=== PATIENT | female | born 1930 | race Caucasian/White ===

== ENCOUNTER 2017-03-08 20:33 | Inpatient (IN) | payer MEDICARE, BC ==
[~2017-03-08] VITALS: Ht 160 cm; Wt 62.3 kg
[~2017-03-08 20:33] MED LIST: AZIT250T74 PO; CALTTAB5 PO; CART300C2 PO; CIPR500T2 PO; COUM3TAB PO; LISI20 PO
[2017-03-08 20:43] VITALS: BP 174/89; PULSE 98; RESP 16; TEMP 99.4; O2SAT 96
[2017-03-08] MEDS ORDERED: PANT40TA3 PO (20:43)
[2017-03-08] MEDS ORDERED: CALC1TAB87 PO (20:43)
[2017-03-08] MEDS ORDERED: DILT300C3 PO (20:43)
[2017-03-08] MEDS ORDERED: WARF-18 PO (20:43)
[2017-03-08] MEDS ORDERED: VANCOMYCIN INJ 1,000 MG in SODIUM CHLOR 0.9% 250 ML INJ 250 ML IV STA (21:25)
[2017-03-08] MEDS ORDERED: PIPERACIL-TAZO 4.5 GM PREMIX 100 ML IV STA (21:25)
--- NOTE | 2017-03-08 21:45 | PD ---
HPI Chief Complaint: General Weakness Time Seen by Provider: 21:25 Travel History International Travel<30 days: No Contact w/Intl Traveler<30days: No Traveled to known affect area: No History of Present Illness HPI 86-year-old female presents to the emergency department by EMS transport from assisted living facility due to evaluation of generalized weakness fatigue and fever today. Daughter reports that patient is typically active and today the nursing facility/assisted living facility noted the patient is complaining of chills and appeared to have shaking chill episodes. The daughter reports she requested a temperature to be taken and patient was noted to be febrile. Patient's transport to the emergency room for evaluation. Patient's had no area of focality no headache no sore throat no sinus pressure drainage no earache no neck pain no cough no congestion no shortness breath or chest pain no nausea no vomiting no abdominal pain no dysuria frequency urgency flank pain hematuria and no areas of skin inflammation erythema tenderness joint pain or swelling. Patient has had some falls this past week and these episodes have been witnessed and no head injury noted. Patient's sustained a few bruises. Daughter states mother falls frequently. Patient does take warfarin for history of atrial fibrillation. Patient has not recently been on antibiotic therapy. FORMERLY [facility], [facility]–1983 Past Medical History Narrative Medical Svfonro-Fttdb-Miegg, arthritis, atrial fibrillation, Coumadin therapy, GERD, hypertension, pneumonia, dyslipidemia, bladder stimulator, ankle and knee surgery; occasional alcohol use; nursing notes reviewed Arthritis: Yes Atrial Fibrillation: Yes Autoimmune Disease: No Blood Disorders: No Anxiety: No Depression: No Cancer: No Chemotherapy: No Cerebrovascular Accident: No Endocrine: No Gastrointestinal Disorders: Yes GERD: Yes Genitourinary: No Hypertension: Yes Immune Disorder: No Neurologic: No Psychiatric: No Reproductive: No Respiratory: No Pneumonia: Yes Radiation Therapy: No Seizures: No Thyroid Disease: No Triglycerides - High: Yes ?: Not Past Surgical History AICD: No Body Medical Devices: BLADDER STIM Genitourinary Surgery: No Pacemaker: No Other Surgery: Yes Social History Alcohol Use: Yes (WHISKEY, 3 DRINKS DAILY) Tobacco Use: No Substance Use: No Allergies-Medications (Allergen,Severity, Reaction): Coded Allergies: Codeine (Verified Allergy, Severe, Rash, 01/04/05) Nifedipine (Verified Allergy, Severe, 01/03/05: PT TAKES CARDIZEM CD AT HOME W/O ADVERSE EFFECT, 01/03/05) REACTION TO ADALAT 01/03/05: PT TAKES CARIDZEM CD AT HOME WITHOUT ADVERSE EFFECT Actonel (Verified Allergy, Intermediate, 03/08/17) Fosamax (Verified Allergy, Intermediate, 03/08/17) Oxybutynin (Verified Allergy, Intermediate, 03/08/17) Procardia (Verified Allergy, Intermediate, 03/08/17) Reported Meds & Prescriptions Reported Meds & Active Scripts Active Reported Calcium 600 with Vitamin D (Calcium Carbonate-Cholecalciferol) 600-400 mg-Unit Tab 1 Tab PO DAILY Diltiazem CD 24 HR 300 Mg Caper 300 Mg PO DAILY Pantoprazole (Pantoprazole Sodium) 40 Mg Tab 40 Mg PO DAILY Warfarin 2.5 Mg Tab 2.5 Mg PO DAILY Review of Systems Except as stated in HPI: all other systems reviewed are Neg General / Constitutional: Positive: Fever, Chills HENT: No: Headaches, Sore Throat, Congestion, Neck Pain Cardiovascular: No: Chest Pain or Discomfort, Palpitations, Diaphoresis, Dyspnea on exertion Respiratory: No: Cough, Shortness of Breath, Pleuritic Pain Gastrointestinal: No: Nausea, Vomiting, Diarrhea, Abdominal Pain Genitourinary: No: Frequency, Dysuria, Flank Pain Musculoskeletal: No: Myalgias, Arthralgias Skin: No Rash Neurologic: Positive: Weakness, No: Dizziness, Syncope, Focal Abnormalities, Coordination Problem Psychiatric: No: Anxiety Endocrine: No: Heat Intolerance Hematologic/Lymphatic: No: Easy Bruising Physical Exam Narrative GENERAL: Well-developed well-nourished female in acute distress no respiratory distress SKIN: Warm and dry. HEAD: Normocephalic. EYES: No scleral icterus. No injection or drainage. NECK: Supple, trachea midline. No JVD or lymphadenopathy. CARDIOVASCULAR: Regular rate and rhythm without murmurs, gallops, or rubs. RESPIRATORY: Breath sounds equal bilaterally. No accessory muscle use. GASTROINTESTINAL: Abdomen soft, non-tender, nondistended. MUSCULOSKELETAL: No cyanosis, or edema. BACK: Nontender without obvious deformity. No CVA tenderness. Data Data Last Documented VS Vital Signs Date Time Temp Pulse Resp B/P Pulse Ox O2 Delivery O2 Flow Rate FiO2 03/09/17 00:04 74 16 172/74 98 Room Air 03/08/17 23:09 98.6 Orders Electrocardiogram (03/08/17:25) Complete Blood Count With Diff (03/08/17:25) Comprehensive Metabolic Panel (03/08/17:) Prothrombin Time / Inr (Pt) (03/08/17:25) Lactic Acid Sepsis Protocol (03/08/17:25) Magnesium (Mg) (03/08/17:25) Lipase (03/08/17:) Troponin I (03/08/17:) Urinalysis - C+S If Indicated (03/08/17:) Blood Culture (03/08/17:) Chest, Single Ap (03/08/17:) Blood Glucose (03/08/17:) Ecg Monitoring (03/08/17:) Iv Access Insert/Monitor (03/08/17:) Oximetry (03/08/17:) Oxygen Administration (03/08/17:) Vancomycin Inj (Vancomycin Inj) (03/08/17:) Piperacil-Tazo 4.5 Gm Premix (Zosyn 4.5 (03/08/17 21:25) Cath For Specimen (03/08/17 22:05) Urine Culture (03/08/17 22:45) Potassium Chloride (Kcl) (03/08/17 23:45) Ceftriaxone Inj (Rocephin Inj) (03/09/17 09:00) Admit To Inpatient (03/09/17 ) Vital Signs (Adult) Q4H (03/09/17 00:05) Activity Oob With Assistance (03/09/17 00:05) Corn Sheller Operator / Telemetry .CONTINUOUS (03/09/17 00:05) Intake + Output MARE.QSHIFT (03/09/17 00:05) Diet Regular Basic (03/09/17 Breakfast) Sodium Chlor 0.9% 1000 Ml Inj (Ns 1000 M (03/09/17 00:05) Sodium Chloride 0.9% Flush (Ns Flush) (03/09/17 00:15) Sodium Chloride 0.9% Flush (Ns Flush) (03/09/17 09:00) Ondansetron Inj (Zofran Inj) (03/09/17 00:15) Bisacodyl Supp (Dulcolax Supp) (03/09/17 00:15) Scd Bilateral/Knee High MARE.BID (03/09/17 00:05) Skip Bilateral/Knee High MARE.QSHIFT (03/09/17 00:05) Acetaminophen (Tylenol) (03/09/17 00:15) Morphine Inj (Morphine Inj) (03/09/17 00:15) Inpatient Certification (03/09/17 ) Diltiazem Cd (Cardizem Cd) (03/09/17 09:00) Pantoprazole (Protonix) (03/09/17 09:00) Warfarin (Coumadin) (03/09/17 09:00) Admit Order (Ed Use Only) (03/09/17 ) ^ Saline Lock (03/09/17 00:07) Resp Oxygen Singh C Titrat 1-4 L (03/09/17 ) Notify Dr: Other (03/09/17 00:07) Sodium Chloride 0.9% Flush (Ns Flush) (03/09/17 09:00) Sodium Chloride 0.9% Flush (Ns Flush) (03/09/17 00:15) Complete Blood Count With Diff (03/09/17 06:00) Comprehensive Metabolic Panel (03/09/17 06:00) Labs Laboratory Tests Test 03/08/17 03/08/17 03/08/17 21:10 21:20 22:45 White Blood Count 13.8 TH/MM3 Red Blood Count 5.16 MIL/MM3 Hemoglobin 13.9 GM/DL Hematocrit 42.1 % Mean Corpuscular Volume 81.5 FL Mean Corpuscular Hemoglobin 27.0 PG Mean Corpuscular Hemoglobin 33.1 % Concent Red Cell Distribution Width 14.8 % Platelet Count 488 TH/MM3 Mean Platelet Volume 8.0 FL Neutrophils (%) (Auto) 82.1 % Lymphocytes (%) (Auto) 8.4 % Monocytes (%) (Auto) 8.2 % Eosinophils (%) (Auto) 0.3 % Basophils (%) (Auto) 1.0 % Neutrophils # (Auto) 11.4 TH/MM3 Lymphocytes # (Auto) 1.2 TH/MM3 Monocytes # (Auto) 1.1 TH/MM3 Eosinophils # (Auto) 0.0 TH/MM3 Basophils # (Auto) 0.1 TH/MM3 CBC Comment DIFF FINAL Differential Comment Prothrombin Time 24.0 SEC Prothromb Time International 2.1 RATIO Ratio Sodium Level 136 MEQ/L Potassium Level 3.3 MEQ/L Chloride Level 98 MEQ/L Carbon Dioxide Level 26.4 MEQ/L Anion Gap 12 MEQ/L Blood Urea Nitrogen 9 MG/DL Creatinine 0.59 MG/DL Estimat Glomerular Filtration 97 ML/MIN Rate Random Glucose 108 MG/DL Calcium Level 9.7 MG/DL Magnesium Level 2.3 MG/DL Total Bilirubin 0.7 MG/DL Aspartate Amino Transf 152 U/L (AST/SGOT) Alanine Aminotransferase 97 U/L (ALT/SGPT) Alkaline Phosphatase 365 U/L Troponin I LESS THAN 0.02 NG/ML Total Protein 7.0 GM/DL Albumin 2.9 GM/DL Lipase 129 U/L Lactic Acid Level 1.2 mmol/L Urine Collection Type CATH Urine Color YELLOW Urine Turbidity CLEAR Urine pH 6.5 Urine Specific [place] 1.018 Urine Protein TRACE mg/dL Urine Glucose (UA) NEG mg/dL Urine Ketones TRACE mg/dL Urine Occult Blood SMALL Urine Nitrite NEG Urine Bilirubin NEG Urine Leukocyte Esterase SMALL Urine WBC 6-8 /hpf Urine WBC Clumps RARE Urine Squamous Epithelial 3-5 /hpf Cells Urine Transitional Epithelial 0-2 /hpf Cells Urine Bacteria RARE /hpf Microscopic Urinalysis Comment CULTURE INDICATED MDM Medical Decision Making Medical Screen Exam Complete: Yes Emergency Medical Condition: Yes Medical Record Reviewed: Yes Interpretation(s) EKG: Atrial fibrillation rate [address] elevation or injury pattern change noted; unchanged from 11/2016 Urinalysis: positive white blood cells clumped white blood cells and bacteria by catheter specimen culture indicated Last Impressions Chest X-Ray 03/08/172124 Signed Impressions: Service Date/Time: Wednesday, March 08, 2017 22:02 - CONCLUSION: 1. Mild cardiomegaly. No significant consolidation or effusion. Matti Fenton MD CBC & BMP Diagram 03/08/17 21:10 Vital Signs Date Time Temp Pulse Resp B/P Pulse Ox O2 Delivery O2 Flow Rate FiO2 03/08/17 23:09 98.6 69 16 176/76 98 Room Air 03/08/17 22:15 74 16 172/76 97 Room Air 03/08/17 20:49 96 Room Air 03/08/17 20:43 99.4 98 16 174/89 96 Differential Diagnosis Febrile illness, sepsis, pneumonia, UTI Narrative Course Patient placed on supervisor diagnostic IV access obtained blood cultures obtained lactic acid sepsis protocol obtained symptoms and IV antibiotic administered process and and vancomycin EKG performed atrial fibrillation with slow ventricular rate of [address] elevation or injury pattern change or ectopy noted; Critical Care Narrative Aggregate critical care time was 35 minutes. Time to perform other separately billable procedures was not included in the critical care time. My time did not include minutes spent treating any other patients simultaneously or on activities that did not directly contribute to the patient's treatment. The services I provided to this patient were to treat and/or prevent clinically significant deterioration that could result in: Septic shock arrhythmia I provided critical care services requiring my management, as noted below: Chart data review, documentation time, medication orders and management, vital sign assessments/reviewing monitor data, ordering and reviewing lab tests, ordering and interpreting/reviewing x-rays and diagnostic studies, care of the patient and discussion of the patient with the admitting physicians. Sepsis Criteria SIRS Criteria (2 or more): Heart rate over 90, WBC > 73642, < 4000 or > 10% bands Sepsis Criteria (SIRS+source): Infect source susp/known (uti) Criteria Outcome: Meets sepsis criteria Physician Communication Physician Communication discussed with Dr Clayton for admission Diagnosis Primary Impression: Febrile illness Additional Impressions: Sepsis Qualified Code: A41.9 - Sepsis, due to unspecified organism UTI (urinary tract infection) Qualified Code: N39.0 - Urinary tract infection without hematuria, site unspecified Admitting Information Admitting Physician Requests: Admit Kenia Flores MD Mar 08, 2017 21:45
[2017-03-08 21:51] LABS: AUTOMATED NEUTROPHIL # 11.4 TH/MM3 (1.8-7.7); BASOPHIL # 0.1 TH/MM3 (0-0.2); EOSINOPHIL % 0.3 % (0.0-4.0); HEMATOCRIT 42.1 % (35.0-46.0); HEMO FLAGS DIFF FINAL; LYMPH % 8.4 % (9.0-44.0); LYMPHOCYTE # 1.2 TH/MM3 (1.0-4.8); MEAN CELL VOLUME 81.5 FL (80.0-100.0); MEAN CORPUSCULAR HGB CONC 33.1 % (32.0-36.0); MONO % 8.2 % (0.0-8.0); NEUT % 82.1 % (16.0-70.0); PLATELET COUNT 488 TH/MM3 (150-450); RED BLOOD COUNT 5.16 MIL/MM3 (4.00-5.30); RED CELL DISTRIBUTION WIDTH 14.8 % (11.6-17.2); WHITE BLOOD COUNT 13.8 TH/MM3 (4.0-11.0)
[2017-03-08 21:58] LABS: CHLORIDE 98 MEQ/L (98-107); POTASSIUM 3.3 MEQ/L (3.5-5.1); SODIUM (NA) 136 MEQ/L (136-145)
[2017-03-08 22:02] LABS: ANION GAP 12 MEQ/L (5-15); BICARBONATE 26.4 MEQ/L (21.0-32.0); BLOOD UREA NITROGEN 9 MG/DL (7-18); MAGNESIUM 2.3 MG/DL (1.5-2.5)
[2017-03-08 22:05] LABS: ALT (GPT) 97 U/L (10-53); GLOMERULAR FILTRATION RATE 97 ML/MIN (>89); INTERNATIONAL NORMALIZED RATIO 2.1 RATIO
[2017-03-08 22:06] LABS: TOTAL BILIRUBIN ADULT 0.7 MG/DL (0.2-1.0)
[2017-03-08 22:07] LABS: AST (GOT) 152 U/L (15-37)
[2017-03-08 22:10] LABS: ALKALINE PHOSPHATASE 365 U/L (45-117)
[2017-03-08 22:15] VITALS: BP 172/76; PULSE 74; RESP 16; O2SAT 97
--- NOTE | 2017-03-08 22:54 | RADHPO ---
EXAM DATE/TIME: 03/08/2017 22:02 [facility] COMPARISON: CHEST SINGLE AP, November 26, 2015, 16:12. INDICATIONS : Weakness and fever. MEDICAL HISTORY : Hypertension. A-fib. SURGICAL HISTORY : None. ENCOUNTER: Initial ACUITY: 1 day PAIN SCORE: 0/10 LOCATION: Bilateral chest FINDINGS: Heart size mildly enlarged. Atherosclerotic and tortuous aorta. Minimal basal atelectasis. No consoli dation or effusion. No pneumothorax. CONCLUSION: 1. Mild cardiomegaly. No significant consolidation or effusion. Matti Fenton MD on March 08, 2017 at 22:52 Board Certified Radiologist. This report was verified electronically.
[2017-03-08 23:09] VITALS: BP 176/76; PULSE 69; RESP 16; TEMP 98.6; O2SAT 98
[2017-03-08 23:23] LABS: BLOOD, URINE SMALL (NEG); GLUCOSE,URINE NEG (NEG); KETONE, URINE TRACE mg/dL (NEG); NITRITE,URINE NEG (NEG); PH, URINE 6.5 (5.0-8.5)
[2017-03-08 23:32] LABS: METHOD OF COLLECTION CATH; URINE COLOR YELLOW (YELLW/STRAW)
[2017-03-08 23:34] LABS: BACTERIA, URINE RARE /hpf; COMMENT (UR) CULTURE INDICATED; CULTURE IF INDICATED CULTURE INDICATED; TRANSITIONAL EPI CELLS, URINE 0-2 /hpf
[2017-03-08] MEDS ORDERED: POTASSIUM CHLORIDE 20 MEQ CONTROLLED RELEASE TAB PO ONE (23:45)
[2017-03-09] VITALS (11 sets, daily range): BP systolic 145–175; BP diastolic 68–86; PULSE 57–75; RESP 16–20; TEMP 97.3–98.4; O2SAT 95–98
[2017-03-09] MEDS ORDERED: ONDANSETRON HCL 4 MG/2 ML VIAL IVP PRN (00:15)
[2017-03-09] MEDS ORDERED: MORPHINE SULFATE 4 MG/ML INJ IV PRN (00:15)
[2017-03-09] MEDS ORDERED: SODIUM CHLORIDE 0.9% FLUSH 10 ML FLUSH IV FLUSH PRN (00:15)
[2017-03-09] MEDS ORDERED: SODIUM CHLORIDE 0.9% FLUSH 10 ML FLUSH IVF PRN (00:15)
[2017-03-09] MEDS ORDERED: BISACODYL 10 MG SUPP RECTAL PRN (00:15)
[2017-03-09] MEDS: SODIUM CHLOR 0.9% 1000 ML INJ 1,000 ML IV SCH ×2 (00:51→09:09)
[2017-03-09 08:40] LABS: AUTOMATED NEUTROPHIL # 9.7 TH/MM3 (1.8-7.7); BASOPHIL # 0.1 TH/MM3 (0-0.2); BASOPHIL % 0.5 % (0.0-2.0); EOSINOPHIL # 0.1 TH/MM3 (0-0.4); EOSINOPHIL % 0.8 % (0.0-4.0); HEMATOCRIT 43.9 % (35.0-46.0); HEMO FLAGS DIFF FINAL; LYMPH % 11.6 % (9.0-44.0); LYMPHOCYTE # 1.4 TH/MM3 (1.0-4.8); MEAN CELL VOLUME 82.5 FL (80.0-100.0); MEAN CORPUSCULAR HEMOGLOBIN 26.4 PG (27.0-34.0); MONO % 8.7 % (0.0-8.0); NEUT % 78.4 % (16.0-70.0); PLATELET COUNT 463 TH/MM3 (150-450); RED BLOOD COUNT 5.32 MIL/MM3 (4.00-5.30); WHITE BLOOD COUNT 12.4 TH/MM3 (4.0-11.0)
[2017-03-09 08:41] LABS: CHLORIDE 103 MEQ/L (98-107); POTASSIUM 3.3 MEQ/L (3.5-5.1); SODIUM (NA) 140 MEQ/L (136-145)
[2017-03-09] MEDS: cefTRIAXone INJ 1,000 MG in SODIUM CHLORIDE 0.9% INJ 100 ML IV SCH (08:52)
[2017-03-09 08:53] LABS: INTERNATIONAL NORMALIZED RATIO 2.2 RATIO; PROTHROMBIN TIME - PATIENT 24.9 SEC (9.8-11.6)
[2017-03-09] MEDS: PANTOPRAZOLE SOD 40 MG DELAYED RELEASE TAB PO SCH (08:53)
[2017-03-09] MEDS: ACETAMINOPHEN 325 MG TAB PO PRN (08:53)
[2017-03-09] MEDS: SODIUM CHLORIDE 0.9% FLUSH 10 ML FLUSH IV FLUSH SCH ×2 (09:00→21:00)
[2017-03-09] MEDS ORDERED: ENALAPRILAT 1.25 MG/ML VIAL IV PRN (09:00)
[2017-03-09] MEDS ORDERED: POTASSIUM CHLORIDE 20 MEQ CONTROLLED RELEASE TAB PO ONE (09:00)
[2017-03-09] MEDS ORDERED: SODIUM CHLORIDE 0.9% FLUSH 10 ML FLUSH IV FLUSH SCH (09:00)
[2017-03-09] MEDS ORDERED: cloNIDine HCL 0.1 MG TAB PO PRN (09:00)
[2017-03-09] MEDS ORDERED: WARFARIN SOD 2.5 MG TAB PO SCH ×2 (09:00→16:00)
[2017-03-09 09:02] LABS: ALKALINE PHOSPHATASE 311 U/L (45-117); ALT (GPT) 74 U/L (10-53); ANION GAP 11 MEQ/L (5-15); AST (GOT) 84 U/L (15-37); BICARBONATE 25.8 MEQ/L (21.0-32.0); BLOOD UREA NITROGEN 7 MG/DL (7-18); GLOMERULAR FILTRATION RATE 112 ML/MIN (>89)
[2017-03-09] MEDS: DILTIAZEM-CD 300 MG CAP ER PO SCH (09:08)
--- NOTE | 2017-03-09 12:03 | HHI.HP ---
[facility] Unknown Admission Diagnosis febrile illness; uti; sepsis Diagnoses: Chief Complaint: Generalized weakness Travel History International Travel<30 Days: No Contact w/Intl Traveler <30 Da: No Traveled to Known Affected Are: No Sepsis Criteria SIRS Criteria (2 or more): Temp > 100.9 or < 96.8, WBC > 33207, < 4000 or > 10 % bands Sepsis Criteria (SIRS+source): Infect source susp/known Criteria Outcome: Meets sepsis criteria History of Present Illness This is a 86-year-old female brought in by EMS transport from assisted living [facility] for evaluation of generalized weakness, fatigue and fever today. Daughter reports that patient is typically active. Noted the patient is complaining of chills and appeared to have shaking chill episodes. The daughter reports she requested a temperature to be taken and patient was febrile. She was found to have abnormal urinalysis and given vancomycin and Zosyn in the emergency department. Denies headache no sore throat no sinus pressure drainage no earache, neck pain, cough, congestion, shortness breath, chest pain, nausea, vomiting, abdominal pain, dysuria, frequency , urgency, flank pain, hematuria and areas of skin inflammation, erythema, tenderness, joint pain or swelling. Patient has had some falls this past week and these episodes have been witnessed and no head injury noted. Patient's sustained a few bruises. Daughter states mother falls frequently. Today she still complains of being tired and uncomfortable she is unable to elaborate further. She is awake and oriented 3. Daughter is asking about rehabilitation Review of Systems Constitutional: COMPLAINS OF: Fatigue, Fever, Chills, DENIES: Diaphoretic episodes, Weight gain, Weight loss, Dizziness, Change in appetite, Night Sweats Endocrine: DENIES: Heat/cold intolerance, Polydipsia, Polyuria, Polyphagia Eyes: DENIES: Blurred vision, Diplopia, Vision loss, Photosensitivity Ears, nose, mouth, throat: DENIES: Tinnitus, Vertigo, Throat pain, Hoarseness, Epistaxis, Odynophagia Respiratory: DENIES: Cough, Wheezing, Hemoptysis, Sputum production, Shortness of breath Cardiovascular: DENIES: Chest pain, Palpitations, Syncope, Dyspnea on Exertion , PND, Lower Extremity Edema, Orthopnea, Claudication Gastrointestinal: DENIES: Abdominal pain, Black stools, Bloody stools, Constipation, Diarrhea, Nausea, Vomiting, Difficulty Swallowing, Anorexia Genitourinary: DENIES: Urinary frequency, Urinary incontinence, Urgency, Hematuria, Dysuria, Nocturia, Vaginal discharge Integumentary: DENIES: Rash Neurologic: DENIES: Headache, Localized weakness, Seizures, Tremor, Poor Balance Psychiatric: DENIES: Anxiety, Confusion, Depression, Hallucinations, Agitation , Suicidal Ideation, Homicidal Ideation, Delusions Past Family Social History Past Medical History Iadlppo-Rppyt-Qlmdx, arthritis, atrial fibrillation on Coumadin therapy, GERD, hypertension and dyslipidemia. History of MRSA cellulitis Past Surgical History bladder stimulator, ankle and knee surgery Reported Medications Calcium, diltiazem, Protonix and Coumadin Allergies: Coded Allergies: Codeine (Verified Allergy, Severe, Rash, 01/04/05) Nifedipine (Verified Allergy, Severe, 01/03/05: PT TAKES CARDIZEM CD AT HOME W/O ADVERSE EFFECT, 01/03/05) REACTION TO ADALAT 01/03/05: PT TAKES CARIDZEM CD AT HOME WITHOUT ADVERSE EFFECT Actonel (Verified Allergy, Intermediate, 03/08/17) Fosamax (Verified Allergy, Intermediate, 03/08/17) Oxybutynin (Verified Allergy, Intermediate, 03/08/17) Procardia (Verified Allergy, Intermediate, 03/08/17) Family History No CAD Social History Occasional alcohol use. Does not smoke Physical Exam Vital Signs Vital Signs Date Time Temp Pulse Resp B/P Pulse Ox O2 Delivery O2 Flow Rate FiO2 03/09/17 08:32 96 21 03/09/17 08:00 57 03/09/17 08:00 98.1 67 16 150/86 95 03/09/17 04:00 98.1 65 18 150/68 98 03/09/17 01:30 62 03/09/17 01:30 98.3 71 20 175/73 98 03/09/17 00:15 98 21 03/09/17 00:04 74 16 172/74 98 Room Air 03/08/17 23:09 98.6 69 16 176/76 98 Room Air 03/08/17 22:15 74 16 172/76 97 Room Air 03/08/17 20:49 96 Room Air 03/08/17 20:43 99.4 98 16 174/89 96 Physical Exam GENERAL: This is a well-nourished, well-developed patient, in no apparent distress. SKIN: No rashes, ecchymoses or lesions. Cool and dry. HEAD: Atraumatic. Normocephalic. No temporal or scalp tenderness. EYES: Pupils equal round and reactive. Extraocular motions intact. No scleral icterus. No injection or drainage. ENT: Nose without bleeding, purulent drainage or septal hematoma. Throat without erythema, tonsillar hypertrophy or exudate. Uvula midline. Airway patent. Tongue fasciculation NECK: Trachea midline. No JVD or lymphadenopathy. Supple, nontender, no meningeal signs. CARDIOVASCULAR: Irregularly irregular. Slight systolic murmur RESPIRATORY: Decreased Breath sounds equal bilaterally. No wheezes, rales, or rhonchi. GASTROINTESTINAL: Abdomen soft, non-tender, nondistended. No guarding. MUSCULOSKELETAL: Extremities without clubbing, cyanosis, or edema. No joint tenderness, effusion, or edema noted. No calf tenderness. Negative Homans sign bilaterally. NEUROLOGICAL: Awake and alert. Cranial nerves II through XII intact. Motor and sensory grossly within normal limits. Five out of 5 muscle strength in all muscle groups. Normal speech. Laboratory Laboratory Tests Test 03/08/17 03/08/17 03/08/17 03/09/17 21:10 21:20 22:45 07:50 White Blood Count 13.8 12.4 Red Blood Count 5.16 5.32 Hemoglobin 13.9 14.0 Hematocrit 42.1 43.9 Mean Corpuscular Volume 81.5 82.5 Mean Corpuscular Hemoglobin 27.0 26.4 Mean Corpuscular Hemoglobin 33.1 32.0 Concent Red Cell Distribution Width 14.8 15.0 Platelet Count 488 463 Mean Platelet Volume 8.0 7.7 Neutrophils (%) (Auto) 82.1 78.4 Lymphocytes (%) (Auto) 8.4 11.6 Monocytes (%) (Auto) 8.2 8.7 Eosinophils (%) (Auto) 0.3 0.8 Basophils (%) (Auto) 1.0 0.5 Neutrophils # (Auto) 11.4 9.7 Lymphocytes # (Auto) 1.2 1.4 Monocytes # (Auto) 1.1 1.1 Eosinophils # (Auto) 0.0 0.1 Basophils # (Auto) 0.1 0.1 CBC Comment DIFF FINAL DIFF FINAL Differential Comment Prothrombin Time 24.0 24.9 Prothromb Time International 2.1 2.2 Ratio Sodium Level 136 140 Potassium Level 3.3 3.3 Chloride Level 98 103 Carbon Dioxide Level 26.4 25.8 Anion Gap 12 11 Blood Urea Nitrogen 9 7 Creatinine 0.59 0.52 Estimat Glomerular Filtration 97 112 Rate Random Glucose 108 86 Calcium Level 9.7 8.7 Magnesium Level 2.3 2.2 Total Bilirubin 0.7 1.0 Aspartate Amino Transf 152 84 (AST/SGOT) Alanine Aminotransferase 97 74 (ALT/SGPT) Alkaline Phosphatase 365 311 Troponin I LESS THAN 0.02 Total Protein 7.0 6.7 Albumin 2.9 2.7 Lipase 129 Lactic Acid Level 1.2 Urine Collection Type CATH Urine Color YELLOW Urine Turbidity CLEAR Urine pH 6.5 Urine Specific [place] 1.018 Urine Protein TRACE Urine Glucose (UA) NEG Urine Ketones TRACE Urine Occult Blood SMALL Urine Nitrite NEG Urine Bilirubin NEG Urine Leukocyte Esterase SMALL Urine WBC 6-8 Urine WBC Clumps RARE Urine Squamous Epithelial 3-5 Cells Urine Transitional Epithelial 0-2 Cells Urine Bacteria RARE Microscopic Urinalysis Comment CULTURE INDICATED Date/Time Procedure Status Source Growth 03/08/17 22:45 Urine Culture Received Urine Catheterized Urine Pending 03/08/17 21:20 Aerobic Blood Culture - Preliminary Resulted Blood Peripheral NO GROWTH IN 1 DAY 03/08/17 21:20 Anaerobic Blood Culture - Preliminary Resulted Blood Peripheral NO GROWTH IN 1 DAY Result Diagram: 03/09/17 0750 03/09/17 0750 Imaging EKG interpreted by me with atrial fibrillation with slow ventricular response Chest x-ray image interpreted by me with mild cardiomegaly no effusion Last Impressions Chest X-Ray 03/08/172124 Signed Impressions: Service Date/Time: Wednesday, March 08, 2017 22:02 - CONCLUSION: 1. Mild cardiomegaly. No significant consolidation or effusion. Matti Fenton MD Assessment and Plan Problem List: (1) Sepsis ICD Code: A41.9 Status: Acute (2) UTI (urinary tract infection) ICD Code: N39.0 Status: Acute Assessment and Plan This is a 86-year-old female brought in by EMS transport from assisted living facility for evaluation of generalized weakness, fatigue and fever with abnormal urinalysis Sepsis secondary to UTI. Continue IV Rocephin and monitor urine and blood cultures. Recurrent falls. Fall precautions. Consult physical therapy Transaminitis. This is mild and likely related to sepsis. We'll monitor Hypokalemia. We'll replace and check magnesium and replace accordingly Chronic medical conditions of Spxdgkx-Yfdju-Muyvt, arthritis, atrial fibrillation on Coumadin therapy, GERD, hypertension and dyslipidemia. Stable continue outpatient medications as appropriate. Monitor INR to keep between 2 and 3 DVT prophylaxis patient on Coumadin Code Status DO NOT RESUSCITATE Discussed Condition With Patient, daughter and son-in-law Physician Certification 2 Midnight Certification Type: Admission for Inpatient Services Order for Inpatient Services The services are ordered in accordance with Medicare regulations or non- Medicare payer requirements, as applicable. In the case of services not specified as inpatient-only, they are appropriately provided as inpatient services in accordance with the 2-midnight benchmark. Estimated LOS (days): 2 days is the estimated time the patient will need to remain in the hospital, assuming treatment plan goals are met and no additional complications. Post-Hospital Plan: Not yet determined Problem Qualifiers (1) Sepsis: Qualified Code: A41.9 - Sepsis, due to unspecified organism (2) UTI (urinary tract infection): Qualified Code: N39.0 - Urinary tract infection without hematuria, site unspecified Jama Delong MD Mar 09, 2017 12:03
--- NOTE | 2017-03-09 14:14 | EKG ---
Date Performed: 03/08/2017 Time Performed: 21:31:04 PTAGE: 86 years EKG: Atrial fibrillation with slow ventricular response Inferior ST-T changes are nonspecific Co mpared to previous tracing, axis is no longer rightward. Abnormal ECG PREVIOUS TRACING : 11/26/2015 16.28 DOCTOR: Martir Reis Interpretating Date/Time 03/09/2017 14:13:39
[2017-03-10] VITALS (8 sets, daily range): BP systolic 148–166; BP diastolic 74–87; PULSE 68–84; RESP 18–20; TEMP 97.3–98.9; O2SAT 93–98
[2017-03-10] MEDS: SODIUM CHLOR 0.9% 1000 ML INJ 1,000 ML IV SCH (02:56)
[2017-03-10 06:26] LABS: INTERNATIONAL NORMALIZED RATIO 2.6 RATIO; PROTHROMBIN TIME - PATIENT 30.1 SEC (9.8-11.6)
[2017-03-10] MEDS: PANTOPRAZOLE SOD 40 MG DELAYED RELEASE TAB PO SCH (08:35)
[2017-03-10] MEDS: DILTIAZEM-CD 300 MG CAP ER PO SCH (08:35)
[2017-03-10] MEDS: cefTRIAXone INJ 1,000 MG in SODIUM CHLORIDE 0.9% INJ 100 ML IV SCH (08:35)
[2017-03-10] MEDS: SODIUM CHLORIDE 0.9% FLUSH 10 ML FLUSH IV FLUSH SCH ×2 (08:37→19:23)
--- NOTE | 2017-03-10 08:38 | HHI.DCPOC ---
Discharge Care Plan Diagnosis: (1) UTI (urinary tract infection) (2) Sepsis Your Health Problems Are: Difficulty with ADL Exercise Tolerance Goals to Promote Your Health * To prevent worsening of your condition and complications * To maintain your health at the optimal level Directions to Meet Your Goals Take your medications as prescribed Follow your dietary instruction Follow activity as directed Keep your appointments as scheduled Take your immunizations and boosters as scheduled If your symptoms worsen call your PCP, if no PCP go to Urgent Care Center or Emergency Room Smoking is Dangerous to Your Health. Avoid second hand smoke Call the 24-hour hour crisis hotline for domestic abuse at Jama Delong MD Mar 10, 2017 08:38
--- NOTE | 2017-03-10 08:39 | HHI.FF ---
Face to Face Verification Diagnosis: (1) Sepsis (2) UTI (urinary tract infection) (3) Charcot-Sherly disease Physical Therapy Order: Evaluate and Treat, Improve ambulation, Strength and gait training I have seen patient Wilfredo Keyes on 03/10/17. My clinical findings support the need for the requested home health care services because: Ltd mobility - disease progression I certify that my clinical findings support that this patient is homebound because: Unsteady gait/balance Unsafe to leave home unassisted Jama Delong MD Mar 10, 2017 08:38
--- NOTE | 2017-03-10 09:46 | HHI.PR ---
Subjective Remarks Follow-up sepsis and UTI. States she is doing okay not feeling tired anymore. She usually wants to sleep in. She also complains of chronic left knee pain. States she is wheelchair bound. Discussed with RN and case management Objective Vitals Vital Signs Date Time Temp Pulse Resp B/P Pulse Ox O2 Delivery O2 Flow Rate FiO2 03/10/17 08:00 98.3 77 20 148/74 94 03/10/17 04:00 98.2 83 18 166/80 95 03/10/17 00:00 98.5 68 18 163/80 93 03/09/17 20:30 58 03/09/17 20:29 98.4 75 16 156/80 95 03/09/17 19:51 97 21 03/09/17 16:00 97.3 60 20 147/78 96 03/09/17 12:00 74 18 145/86 96 03/09/17 09:53 20 I/O 03/09/17 03/09/17 03/09/17 03/10/17 03/10/17 03/10/17 07:00 15:00 23:00 07:00 15:00 23:00 Intake Total 947 ml 462 ml Balance 947 ml 462 ml Intake Oral 120 ml 125 ml IV Total 827 ml 337 ml # Voids 5 3 # Bowel Movements 0 0 Result Diagram: 03/09/17 0750 03/09/17 0750 Imaging Last Impressions Chest X-Ray 03/08/172124 Signed Impressions: Service Date/Time: Wednesday, March 08, 2017 22:02 - CONCLUSION: 1. Mild cardiomegaly. No significant consolidation or effusion. Matti Fenton MD Objective Remarks GENERAL: This is a well-nourished, well-developed patient, in no apparent distress. SKIN: No rashes, ecchymoses or lesions. Cool and dry. HEAD: Atraumatic. Normocephalic. No temporal or scalp tenderness. EYES: Pupils equal round and reactive. Extraocular motions intact. No scleral icterus. No injection or drainage. ENT: Nose without bleeding, purulent drainage or septal hematoma. Throat without erythema, tonsillar hypertrophy or exudate. Uvula midline. Airway patent. Tongue fasciculation NECK: Trachea midline. No JVD or lymphadenopathy. Supple, nontender, no meningeal signs. CARDIOVASCULAR: Irregularly irregular. Slight systolic murmur RESPIRATORY: Decreased Breath sounds equal bilaterally. No wheezes, rales, or rhonchi. GASTROINTESTINAL: Abdomen soft, non-tender, nondistended. No guarding. MUSCULOSKELETAL: Extremities without clubbing, cyanosis, or edema. No joint tenderness, effusion, or edema noted. No calf tenderness. Negative Homans sign bilaterally. NEUROLOGICAL: Awake and alert. Cranial nerves II through XII intact. Motor and sensory grossly within normal limits. Five out of 5 muscle strength in all muscle groups. Normal speech. Procedures None A/P Problem List: (1) Sepsis ICD Code: A41.9 Status: Acute (2) UTI (urinary tract infection) ICD Code: N39.0 Status: Acute Assessment and Plan This is a 86-year-old female brought in by EMS transport from assisted living facility for evaluation of generalized weakness, fatigue and fever with abnormal urinalysis Sepsis secondary to UTI/pyelonephritis. Improved with no SIRS. No IV access will discontinue IV Rocephin switch to by mouth Ceftin and monitor urine and blood cultures negative to date. Recurrent falls. Fall precautions. She is wheelchair bound. Continue Physical therapy Transaminitis. This is mild and likely related to sepsis. We'll monitor Hypokalemia. Replaced Chronic medical conditions of Ywwfedi-Kkmgt-Hperh, arthritis, atrial fibrillation on Coumadin therapy, GERD, hypertension and dyslipidemia. Stable continue outpatient medications as appropriate. Monitor INR to keep between 2 and 3 DVT prophylaxis patient on Coumadin Discharge Planning Discharge patient to [facility] with home health care physical therapy. She has significantly improved earlier than expected Condition on discharge: Improved Regular Diet as tolerated Ad Nathalie activity no driving Rx written: Ceftin Follow-up with primary care physician in one week Problem Qualifiers (1) Sepsis: Qualified Code: A41.9 - Sepsis, due to unspecified organism (2) UTI (urinary tract infection): Qualified Code: N39.0 - Urinary tract infection without hematuria, site unspecified Jama Delong MD Mar 10, 2017 09:46
[2017-03-10] MEDS ORDERED: CEFT500T3 PO (10:16)
[2017-03-10] MEDS: CEFUROXIME AXETIL 500 MG TAB PO SCH ×2 (10:29→21:27)
--- NOTE | 2017-03-10 15:40 | RADHPO ---
EXAM DATE/TIME: 03/10/2017 13:34 [facility] COMPARISON: No previous studies available for comparison. INDICATIONS : Increased lab values. MEDICAL HISTORY : Hypertension. Gastroesophageal reflux disease. Arthritis. Hyperlipidemia. Pneumonia. Tuberculosis. A- fib. SURGICAL HISTORY : Total knee replacement, right. ENCOUNTER: Initial ACUITY: 1 day PAIN SCORE: 0/10 LOCATION: Right upper quadrant MEASUREMENTS: LIVER: 15.5 cm length COMMON DUCT: 10 mm RIGHT KIDNEY: 9.8 x 5.1 x 4.7 cm SPLEEN: 9.3 cm length FINDINGS: LIVER: Normal echotexture without focal suspicious lesion or ductal dilatation. At least 2 and possibly 3 he patic cysts are noted. COMMON DUCT: Common bile duct is dilated measuring 10 mm. There is no evidence of intraluminal filling defect. GALLBLADDER: Gallbladder is not visualized. There is acoustic shadowing originating from the gallbladder bed. This may or present a contracted gallbladder with stones. PANCREAS: The visualized portions are within normal limits. RIGHT KIDNEY: No hydronephrosis, stone or mass. SPLEEN: No focal lesion. CONCLUSION: Possible contracted gallbladder containing stones. Mild common bile that dilatation measuring 10 mm. This should be considered abnormal if the patient h as not had a cholecystectomy. Hepatic cysts. Mayank Zacarias MD on March 10, 2017 at 15:34 Board Certified Radiologist. This report was verified electronically.
[2017-03-10] MEDS ORDERED: WARFARIN SOD 2 MG TAB PO SCH (16:00)
[2017-03-10] MEDS: ACETAMINOPHEN 325 MG TAB PO PRN (23:47)
[2017-03-11] VITALS: BP 151/72; PULSE 79; RESP 20; TEMP 96.6; O2SAT 95
[2017-03-11 04:00] VITALS: BP 142/70; PULSE 69; RESP 20; TEMP 96.7; O2SAT 97
[2017-03-11 07:05] LABS: INTERNATIONAL NORMALIZED RATIO 4.1 RATIO; PROTHROMBIN TIME - PATIENT 48.8 SEC (9.8-11.6)
[2017-03-11 08:00] VITALS: BP 143/77; PULSE 74; RESP 18; TEMP 96.7; O2SAT 93
[2017-03-11] MEDS: PANTOPRAZOLE SOD 40 MG DELAYED RELEASE TAB PO SCH (09:41)
[2017-03-11] MEDS: SODIUM CHLORIDE 0.9% FLUSH 10 ML FLUSH IV FLUSH SCH ×2 (09:41→20:25)
[2017-03-11] MEDS: DILTIAZEM-CD 300 MG CAP ER PO SCH (09:42)
[2017-03-11] MEDS: CEFUROXIME AXETIL 500 MG TAB PO SCH ×2 (09:42→20:23)
[2017-03-11 12:00] VITALS: BP 129/80; PULSE 88; RESP 16; TEMP 96.4; O2SAT 97
--- NOTE | 2017-03-11 15:05 | HHI.PR ---
Subjective Remarks Follow up transaminitis. Again complaining of weakness to today. Denies nausea and abdominal pain. States she still has her gallbladder. Agrees with MRCP. Discussed with RN Objective Vitals Vital Signs Date Time Temp Pulse Resp B/P Pulse Ox O2 Delivery O2 Flow Rate FiO2 03/11/17 12:00 96.4 88 16 129/80 97 03/11/17 08:00 96.7 74 18 143/77 93 03/11/17 04:00 96.7 69 20 142/70 97 03/11/17 00:00 96.6 79 20 151/72 95 03/10/17 21:00 78 03/10/17 20:00 98.9 75 18 148/78 96 03/10/17 16:00 97.3 84 18 149/85 98 I/O 03/10/17 03/10/17 03/10/17 03/11/17 03/11/17 03/11/17 07:00 15:00 23:00 07:00 15:00 23:00 Intake Total 462 ml 0 ml 510 ml Balance 462 ml 0 ml 510 ml Intake Oral 125 ml 0 ml 510 ml IV Total 337 ml # Voids 3 3 1 1 # Bowel Movements 0 0 Result Diagram: 03/09/17 0750 03/09/17 0750 Imaging Last Impressions Liver Ultrasound 03/10/17 0000 Signed Impressions: Service Date/Time: Friday, March 10, 2017 13:34 - CONCLUSION: Possible contracted gallbladder containing stones. Mild common bile that dilatation measuring 10 mm. This should be considered abnormal if the patient has not had a cholecystectomy. Hepatic cysts. Mayank Zacarias MD Chest X-Ray 03/08/172124 Signed Impressions: Service Date/Time: Wednesday, March 08, 2017 22:02 - CONCLUSION: 1. Mild cardiomegaly. No significant consolidation or effusion. Matti Fenton MD Objective Remarks GENERAL: This is a well-nourished, well-developed patient, in no apparent distress. SKIN: No rashes, ecchymoses or lesions. Cool and dry. HEAD: Atraumatic. Normocephalic. No temporal or scalp tenderness. EYES: Pupils equal round and reactive. Extraocular motions intact. No scleral icterus. No injection or drainage. ENT: Nose without bleeding, purulent drainage or septal hematoma. Throat without erythema, tonsillar hypertrophy or exudate. Uvula midline. Airway patent. Tongue fasciculation NECK: Trachea midline. No JVD or lymphadenopathy. Supple, nontender, no meningeal signs. CARDIOVASCULAR: Irregularly irregular. Slight systolic murmur RESPIRATORY: Decreased Breath sounds equal bilaterally. No wheezes, rales, or rhonchi. GASTROINTESTINAL: Abdomen soft, non-tender, nondistended. No guarding. No Marvin's sign MUSCULOSKELETAL: Extremities without clubbing, cyanosis, or edema. No joint tenderness, effusion, or edema noted. No calf tenderness. Negative Homans sign bilaterally. NEUROLOGICAL: Awake and alert. Cranial nerves II through XII intact. Motor and sensory grossly within normal limits. Five out of 5 muscle strength in all muscle groups. Normal speech. Procedures None A/P Problem List: (1) Sepsis ICD Code: A41.9 Status: Acute (2) UTI (urinary tract infection) ICD Code: N39.0 Status: Acute Assessment and Plan This is a 86-year-old female brought in by EMS transport from assisted living facility for evaluation of generalized weakness, fatigue and fever with abnormal urinalysis Transaminitis. Initially thought to be related to sepsis. Hepatitis screen negative. Sonogram with mild CBD. Obtain MRCP if unable we'll consult GI. Sepsis secondary to UTI. Improved s/p IV Rocephin switch to by mouth Ceftin total 3 days and monitor urine and blood cultures growing contaminants Recurrent falls. Fall precautions. She is wheelchair bound. Continue Physical therapy Hypokalemia. Replaced Chronic medical conditions of Srbotec-Iuyel-Nfutv, arthritis, atrial fibrillation on Coumadin therapy, GERD, hypertension and dyslipidemia. Stable continue outpatient medications as appropriate. Monitor INR to keep between 2 and 3 DVT prophylaxis patient on Coumadin Discharge Planning Discharge patient to [facility] with home health care physical therapy versus rehabilitation Problem Qualifiers (1) Sepsis: Qualified Code: A41.9 - Sepsis, due to unspecified organism (2) UTI (urinary tract infection): Qualified Code: N39.0 - Urinary tract infection without hematuria, site unspecified Jama Delong MD Mar 11, 2017 15:05
[2017-03-11] MEDS: MUPIROCIN 2% OINT 1 APPLIC/GM SYR EACH NARE SCH ×2 (15:38→20:24)
[2017-03-11 16:00] VITALS: BP 142/65; PULSE 85; RESP 16; TEMP 96.7; O2SAT 96
[2017-03-11 20:00] VITALS: BP 135/77; PULSE 76; RESP 16; TEMP 98.1; O2SAT 96
[2017-03-12] VITALS (7 sets, daily range): BP systolic 127–145; BP diastolic 63–77; PULSE 57–84; RESP 16–19; TEMP 95.7–98; O2SAT 93–99
[2017-03-12 06:46] LABS: INTERNATIONAL NORMALIZED RATIO 3.7 RATIO; PROTHROMBIN TIME - PATIENT 43.3 SEC (9.8-11.6)
[2017-03-12] MEDS: DILTIAZEM-CD 300 MG CAP ER PO SCH (08:23)
[2017-03-12] MEDS: SODIUM CHLORIDE 0.9% FLUSH 10 ML FLUSH IV FLUSH SCH ×2 (08:24→20:49)
[2017-03-12] MEDS: PANTOPRAZOLE SOD 40 MG DELAYED RELEASE TAB PO SCH (08:24)
[2017-03-12] MEDS: MUPIROCIN 2% OINT 1 APPLIC/GM SYR EACH NARE SCH ×2 (08:24→20:48)
--- NOTE | 2017-03-12 13:54 | HHI.PR ---
Subjective Remarks Follow up transaminitis, sepsis, UTI. Patient denies abdominal pain, nausea, vomiting. No complaints at this time. Objective Vitals Vital Signs Date Time Temp Pulse Resp B/P Pulse Ox O2 Delivery O2 Flow Rate FiO2 03/12/17 08:00 97.3 78 17 138/77 96 03/12/17 04:00 97.0 57 16 143/77 94 03/12/17 00:08 97.9 61 16 140/75 99 03/11/17 20:00 98.1 76 16 135/77 96 03/11/17 16:00 96.7 85 16 142/65 96 I/O 03/11/17 03/11/17 03/11/17 03/12/17 03/12/17 03/12/17 07:00 15:00 23:00 07:00 15:00 23:00 Intake Total 570 ml 0 ml 0 ml Balance 570 ml 0 ml 0 ml Intake Oral 570 ml IV Total 0 ml 0 ml # Voids 1 2 1 1 # Bowel Movements 0 Result Diagram: 03/09/17 0750 03/09/17 0750 Imaging Last Impressions Liver Ultrasound 03/10/17 0000 Signed Impressions: Service Date/Time: Friday, March 10, 2017 13:34 - CONCLUSION: Possible contracted gallbladder containing stones. Mild common bile that dilatation measuring 10 mm. This should be considered abnormal if the patient has not had a cholecystectomy. Hepatic cysts. Mayank Zacarias MD Chest X-Ray 03/08/172124 Signed Impressions: Service Date/Time: Wednesday, March 08, 2017 22:02 - CONCLUSION: 1. Mild cardiomegaly. No significant consolidation or effusion. Matti Fenton MD Objective Remarks General: Elderly female in no acute distress. In a wheelchair. Heart: Regular rate and rhythm. No murmur. Lungs: Clear to auscultation bilaterally. No wheezes, rales, or rhonchi. Breathing is nonlabored. Abdomen: Soft, nontender, nondistended. Extremities: No lower extremity edema. Psych: Alert and oriented. Procedures None Urinary Catheter: No Vascular Central Line Catheter: No A/P Problem List: (1) Sepsis ICD Code: A41.9 Status: Acute (2) UTI (urinary tract infection) ICD Code: N39.0 Status: Acute Assessment and Plan 1. Transaminitis: Thought initially to be secondary to sepsis. Hepatitis panel negative. Liver ultrasound shows mild common bile duct dilatation. MRCP ordered , but unable to be performed secondary to implanted bladder stimulator. Gastroenterology consultation is pending. 2. Sepsis secondary to UTI: Improved. Continue antibiotics. Monitor cultures. Blood cultures are growing contaminants. 3. Recurrent falls: Continue fall precautions. Patient is wheelchair-bound. Continue physical therapy. 4. Atrial fibrillation: Continue Coumadin. 5. Hypertension: Continue home meds. 6. DVT prophylaxis: Coumadin. Discharge Planning Anticipate discharge to [facility] with home health care soon, pending GI evaluation. Problem Qualifiers (1) Sepsis: Qualified Code: A41.9 - Sepsis, due to unspecified organism (2) UTI (urinary tract infection): Qualified Code: N39.0 - Urinary tract infection without hematuria, site unspecified Sarabjit Adame MD Mar 12, 2017 13:54
[2017-03-12] MEDS: SODIUM CHLOR 0.9% 1000 ML INJ 1,000 ML IV SCH (15:34)
--- NOTE | 2017-03-12 16:21 | PD.CONS ---
HPI History of Present Illness This is a 86 year old [lady] who came to the hospital with sepsis from UTI and was found to have LFTs. US showed possible contracted gallbladder containing stones, mild common bile duct dilatation measuring 10mm, hepatic cysts. She denies any abdominal pain, nausea, vomiting, change in bowel habits, jaundice. She does not frequently use tylenol. SHe has not drank alcohol since November but prior had 2 x drinks daily. (Olive Jameson) PFSH Past Medical History Rispgcw-Bpjfe-Iulru, arthritis, atrial fibrillation on Coumadin therapy, GERD, hypertension and dyslipidemia. History of MRSA cellulitis Past Surgical History bladder stimulator, ankle and knee surgery (Olive Jameson) Coded Allergies: Codeine (Verified Allergy, Severe, Rash, 01/04/05) Nifedipine (Verified Allergy, Severe, 01/03/05: PT TAKES CARDIZEM CD AT HOME W/O ADVERSE EFFECT, 01/03/05) REACTION TO ADALAT 01/03/05: PT TAKES CARIDZEM CD AT HOME WITHOUT ADVERSE EFFECT Actonel (Verified Allergy, Intermediate, 03/08/17) Fosamax (Verified Allergy, Intermediate, 03/08/17) Oxybutynin (Verified Allergy, Intermediate, 03/08/17) Procardia (Verified Allergy, Intermediate, 03/08/17) *MDRO Multi-Drug Resistant Organism (Verified Adverse Reaction, Unknown, MRSA, 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 Does not smoke (Olive Jameson) Review of Systems Constitutional: COMPLAINS OF: Fatigue Eyes: DENIES: Blurred vision Ears, nose, mouth, throat: DENIES: Hearing loss Respiratory: DENIES: Wheezing Cardiovascular: DENIES: Chest pain Gastrointestinal: DENIES: Abdominal pain, Bloody stools, Constipation, Diarrhea , Nausea, Vomiting, Swelling of Abdomen Musculoskeletal: DENIES: Muscle aches Integumentary: DENIES: Abnormal pigmentation, Pruritus, Jaundice Hematologic/lymphatic: DENIES: Bruising Psychiatric: DENIES: Anxiety (Olive Jameson) GI Exam Vitals I&O Vital Signs Date Time Temp Pulse Resp B/P Pulse Ox O2 Delivery O2 Flow Rate FiO2 03/12/17 08:00 97.3 78 17 138/77 96 03/12/17 04:00 97.0 57 16 143/77 94 03/12/17 00:08 97.9 61 16 140/75 99 03/11/17 20:00 98.1 76 16 135/77 96 03/11/17 16:00 96.7 85 16 142/65 96 I/O 03/11/17 03/11/17 03/11/17 03/12/17 03/12/17 03/12/17 07:00 15:00 23:00 07:00 15:00 23:00 Intake Total 570 ml 0 ml 0 ml Balance 570 ml 0 ml 0 ml Intake Oral 570 ml IV Total 0 ml 0 ml # Voids 1 2 1 1 3 # Bowel Movements 0 Imaging Last Impressions Liver Ultrasound 03/10/17 0000 Signed Impressions: Service Date/Time: Friday, March 10, 2017 13:34 - CONCLUSION: Possible contracted gallbladder containing stones. Mild common bile that dilatation measuring 10 mm. This should be considered abnormal if the patient has not had a cholecystectomy. Hepatic cysts. Mayank Zacarias MD Chest X-Ray 03/08/172124 Signed Impressions: Service Date/Time: Wednesday, March 08, 2017 22:02 - CONCLUSION: 1. Mild cardiomegaly. No significant consolidation or effusion. Matti Fenton MD Laboratory Test 03/12/17 05:40 Prothrombin Time 43.3 SEC Prothromb Time International 3.7 RATIO Ratio Date/Time Procedure Status Source Growth 03/08/17 22:45 Urine Culture - Final Complete Urine Catheterized Urine 10-50,000 CFU/ML MIXED GRAM POSITIVE ... 03/08/17 21:20 Aerobic Blood Culture - Preliminary Resulted Blood Peripheral NO GROWTH IN 4 DAYS 03/08/17 21:20 Anaerobic Blood Culture - Preliminary Resulted Blood Peripheral NO GROWTH IN 4 DAYS Physical Examination HEENT: EOMI; normocephalic; atraumatic; no jaundice. NECK: Neck is supple CHEST: Chest is clear to auscultation and percussion. CARDIAC: Irregularl rate ABDOMEN: Soft, nondistended, nontender; no hepatosplenomegaly; bowel sounds are present in all four quadrants. EXTREMITIES: BUE hand joint deformities. No clubbing, cyanosis, or edema. SKIN: Normal; no rash; no jaundice. ACCOUNTING TEACHER: No focal deficits; alert and oriented times three. (Olive Jameson) Assessment and Plan Plan ASSESSMENT: - elevated LFTs - AST 84, ALT 74, ALP 311. Tbili 1.0. LFTs down from 03/08 except bili. Hep panel neg. US 03/10/17---> Possible contracted gallbladder containing stones. Mild common bile that dilatation measuring 10 mm. This should be considered abnormal if the patient has not had a cholecystectomy. Hepatic cysts. PLAN: - HIDA - JONATHAN - monitor LFTs, lipase - iron studies, TIMA, MA, ASMA, AFP, alpha 1 antitrypsin, ceruloplasmin - proceed based on results of above This pt was seen by myself and Dr Hopkins and this note is written on his behalf (Olive Jameson) Physician Comments Seen and examined with CLIENT SERVICES ACCOUNT MANAGER, doing well. No history of cholecystectomy. Unable to do MRCP< HIDA ordered. Discussed with pt. and family. Thank you (Harrison Hopkins MD) Olive Jameson Mar 12, 2017 16:21 Harrison Hopkins MD Mar 12, 2017 18:04
[2017-03-12 21:36] LABS: INDIRECT BILIRUBIN 0.3 MG/DL (0.0-0.8); TOTAL BILIRUBIN ADULT 0.4 MG/DL (0.2-1.0)
[2017-03-13] VITALS: BP 121/75; PULSE 77; RESP 18; TEMP 97; O2SAT 96
[2017-03-13 04:00] VITALS: BP 130/74; PULSE 75; RESP 16; TEMP 97.6; O2SAT 96
[2017-03-13] MEDS: SODIUM CHLOR 0.9% 1000 ML INJ 1,000 ML IV SCH (05:18)
[2017-03-13 08:00] VITALS: BP 146/86; PULSE 80; RESP 18; TEMP 96.2; O2SAT 94
[2017-03-13 09:33] LABS: TRANSFERRIN IRON PROFILE 159 MG/DL (200-360)
[2017-03-13 10:15] VITALS: PULSE 76
[2017-03-13] MEDS: MUPIROCIN 2% OINT 1 APPLIC/GM SYR EACH NARE SCH (10:49)
[2017-03-13] MEDS: SODIUM CHLORIDE 0.9% FLUSH 10 ML FLUSH IV FLUSH SCH (10:50)
[2017-03-13] MEDS: PANTOPRAZOLE SOD 40 MG DELAYED RELEASE TAB PO SCH (10:51)
[2017-03-13] MEDS: DILTIAZEM-CD 300 MG CAP ER PO SCH (10:51)
[2017-03-13 11:13] LABS: INTERNATIONAL NORMALIZED RATIO 2.8 RATIO; PROTHROMBIN TIME - PATIENT 31.9 SEC (9.8-11.6)
--- NOTE | 2017-03-13 11:37 | RADHPO ---
EXAM DATE/TIME: 03/13/2017 08:15 This report includes an Addendum and supersedes previous reports for this exam. [facility] COMPARISON: US ABDOMEN - LIVER, March 10, 2017, 13:34. INDICATIONS : Elevated enzymes. Common bile duct dilatation. Possible contracted gallbladder with stones. DOSE: 4.4 mCi Tc99m Mebrofenin IV MEDICAL HISTORY : Hypercholesterolemia. Hypertension. Gastroesophageal reflux disease. Atrial fibrillation. SURGICAL HISTORY : Total knee replacement, left. ENCOUNTER: Initial ACUITY: 4 - 6 days PAIN SCALE: 0/10 LOCATION: Right upper quadrant TECHNIQUE: Following the intravenous administration of radiotracer, dynamic sequential images were performed wit h continuous acquisition. FINDINGS: There is good hepatocyte function and there is activity within common bile duct by approximately 15 minutes. Gallbladder is not visualized up until 2 hours of scanning. CONCLUSION: Nonvisualization of the gallbladder nonspecific, however could be seen with cholecystitis. Jami Cisneros MD on March 13, 2017 at 11:31 Board Certified Radiologist. This report was verified electronically. ADDENDUM: Delayed 8 hour image was obtained and gallbladder is not visualized. Jami Cisneros MD on March 13, 2017 at 17:22 Board Certified Radiologist. This report was verified electronically.
[2017-03-13 12:00] VITALS: BP 162/74; PULSE 104; RESP 20; TEMP 96.5; O2SAT 98
--- NOTE | 2017-03-13 12:01 | HHI.DS ---
Discharge Summary Admission Date Mar 09, 2017 at 00:09 Discharge Date: Mar 13, 2017 Admitting Diagnosis febrile illness; uti; sepsis (1) Sepsis ICD Code: A41.9 (2) UTI (urinary tract infection) ICD Code: N39.0 Procedures None Brief History - From Admission This is a 86-year-old female brought in by EMS transport from assisted living facility for evaluation of generalized weakness, fatigue and fever today. Daughter reports that patient is typically active. Noted the patient is complaining of chills and appeared to have shaking chill episodes. The daughter reports she requested a temperature to be taken and patient was febrile. She was found to have abnormal urinalysis and given vancomycin and Zosyn in the emergency department. Denies headache no sore throat no sinus pressure drainage no earache, neck pain, cough, congestion, shortness breath, chest pain, nausea, vomiting, abdominal pain, dysuria, frequency , urgency, flank pain, hematuria and areas of skin inflammation, erythema, tenderness, joint pain or swelling. Patient has had some falls this past week and these episodes have been witnessed and no head injury noted. Patient's sustained a few bruises. Daughter states mother falls frequently. Today she still complains of being tired and uncomfortable she is unable to elaborate further. She is awake and oriented 3. Daughter is asking about rehabilitation CBC/BMP: 03/09/17 0750 03/09/17 0750 Significant Findings Laboratory Tests Test 03/11/17 03/12/17 03/12/17 03/13/17 05:30 05:40 21:10 05:24 Prothrombin Time 48.8 SEC 43.3 SEC (9.8-11.6) (9.8-11.6) Alkaline Phosphatase 185 U/L (45-117) Albumin 2.5 GM/DL (3.4-5.0) Iron Level 45 MCG/DL (50-170) Total Iron Binding Capacity 223 MCG/DL (250-450) Test 03/13/17 10:50 Prothrombin Time 31.9 SEC (9.8-11.6) Imaging Last Impressions Hepatobiliary Scan Nuclear Medicine 03/13/17 0600 Signed Impressions: Service Date/Time: February 08:15 - CONCLUSION: Nonvisualization of the gallbladder nonspecific, however could be seen with cholecystitis. Jami Cisneros MD Liver Ultrasound 03/10/17 0000 Signed Impressions: Service Date/Time: Friday, March 10, 2017 13:34 - CONCLUSION: Possible contracted gallbladder containing stones. Mild common bile that dilatation measuring 10 mm. This should be considered abnormal if the patient has not had a cholecystectomy. Hepatic cysts. Mayank Zacarias MD Chest X-Ray 03/08/172124 Signed Impressions: Service Date/Time: Wednesday, March 08, 2017 22:02 - CONCLUSION: 1. Mild cardiomegaly. No significant consolidation or effusion. Matti Fenton MD PE at Discharge General: Elderly female in no acute distress. In a wheelchair. Heart: Regular rate and rhythm. No murmur. Lungs: Clear to auscultation bilaterally. No wheezes, rales, or rhonchi. Breathing is nonlabored. Abdomen: Soft, nontender, nondistended. Extremities: No lower extremity edema. Psych: Alert and oriented. Pt update on day of discharge The patient has no abdominal pain today. Denies nausea, vomiting, diarrhea, constipation. Had HIDA scan this morning. Discussed with Dr. Colvin, who reviewed the HIDA scan and evaluated the patient. She has been cleared for discharge by GI. Hospital Course The patient was admitted for treatment of sepsis secondary to UTI. She completed course of antibiotics. Urine culture grew contaminants. She was evaluated for transaminitis. HIDA scan was abnormal, but nonspecific. A shunt was evaluated by gastroenterology. Her abdominal pain resolved. She was felt to be stable for discharge to SNF. Pt Condition on Discharge: Stable Discharge Disposition: Discharge to SNF Discharge Time: > 30 minutes Discharge Instructions DIET: Follow Instructions for: Heart Healthy Diet Activities you can perform: Regular-No Restrictions Activities to Avoid: Driving Follow up Referrals: Gastroenterology - 1 Week with Alicia Sierra MD PCP Follow-up - 1 Week New Orders: PT/INR Continued Medications: Calcium Carbonate-Cholecalciferol (Calcium 600 with Vitamin D) 600-400 mg-Unit Tab 1 TAB PO DAILY Calcium Supplement Ref 0 TAB Diltiazem CD 24 HR (Diltiazem CD 24 HR) 300 Mg Caper 300 MG PO DAILY #30 Ref 0 CAP Pantoprazole (Pantoprazole) 40 Mg Tab 40 MG PO DAILY Reflux #30 Ref 0 TAB Warfarin (Warfarin) 2.5 Mg Tab 2.5 MG PO DAILY Blood Clot Prevention #30 Ref 0 TAB Sarabjit Adame MD Mar 13, 2017 12:01
--- NOTE | 2017-03-13 12:11 | HHI.GIFU ---
Subjective Remarks comfortable in bed denies any pain or any N/V feeling better Objective Vitals I&O Vital Signs Date Time Temp Pulse Resp B/P Pulse Ox O2 Delivery O2 Flow Rate FiO2 03/13/17 10:15 76 03/13/17 08:00 96.2 80 18 146/86 94 03/13/17 04:00 97.6 75 16 130/74 96 03/13/17 00:00 97.0 77 18 121/75 96 03/12/17 20:00 98.0 79 19 127/76 95 03/12/17 16:00 95.7 84 17 141/69 97 I/O 03/12/17 03/12/17 03/12/17 03/13/17 03/13/17 03/13/17 07:00 15:00 23:00 07:00 15:00 23:00 Intake Total 0 ml 240 ml 120 ml Output Total 600 ml Balance 0 ml -360 ml 120 ml Intake Oral 240 ml 120 ml IV Total 0 ml 0 ml 0 ml Output Urine Total 600 ml # Voids 1 3 2 # Bowel Movements 0 Laboratory Laboratory Tests Test 03/12/17 03/13/17 03/13/17 21:10 05:24 10:50 Total Bilirubin 0.4 Direct Bilirubin 0.1 Indirect Bilirubin 0.3 Aspartate Amino Transf 15 (AST/SGOT) Alanine Aminotransferase 26 (ALT/SGPT) Alkaline Phosphatase 185 Total Protein 6.6 Albumin 2.5 Iron Level 45 Total Iron Binding Capacity 223 Percent Iron Saturation 20.2 Lipase 190 Tumor Marker Alpha Fetoprotein 1.9 Prothrombin Time 31.9 Prothromb Time International 2.8 Ratio Date/Time Procedure Status Source Growth 03/08/17 22:45 Urine Culture - Final Complete Urine Catheterized Urine 10-50,000 CFU/ML MIXED GRAM POSITIVE ... 03/08/17 21:20 Aerobic Blood Culture - Final Complete Blood Peripheral NO GROWTH IN 5 DAYS 03/08/17 21:20 Anaerobic Blood Culture - Final Complete Blood Peripheral NO GROWTH IN 5 DAYS Imaging Last Impressions Hepatobiliary Scan Nuclear Medicine 03/13/17 0600 Signed Impressions: Service Date/Time: February 08:15 - CONCLUSION: Nonvisualization of the gallbladder nonspecific, however could be seen with cholecystitis. KJes Cisneros MD Liver Ultrasound 03/10/17 0000 Signed Impressions: Service Date/Time: Friday, March 10, 2017 13:34 - CONCLUSION: Possible contracted gallbladder containing stones. Mild common bile that dilatation measuring 10 mm. This should be considered abnormal if the patient has not had a cholecystectomy. Hepatic cysts. Mayank Zacarias MD Chest X-Ray 03/08/[id number] Signed Impressions: Service Date/Time: Wednesday, March 08, 2017 22:02 - CONCLUSION: 1. Mild cardiomegaly. No significant consolidation or effusion. Matti Fenton MD Physical Exam HEENT: no jaundice. Throat is clear. NECK: Neck is supple CHEST: Chest is clear to auscultation and percussion. CARDIAC: Regular rate and rhythm with no murmur gallop or rubs. ABDOMEN: Soft, nondistended, nontender; no hepatosplenomegaly; bowel sounds are present in all four quadrants. EXTREMITIES: No clubbing, cyanosis, or edema. SKIN: Normal; no rash; no jaundice. 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 Assessment and Plan Plan ASSESSMENT: - elevated LFTs resolved probable sludge or stone passed, patient unable to do MRCP - Mild common bile that dilatation measuring 10 mm. unclear significance - Hepatic cysts. PLAN: - HIDA GB not seen but CBD active and patient asymptomatic - JONATHAN - monitor LFTs - ok for D/C from GI standpoint to f/u as outpt and to have labs monitored Freedom Colvin MD Mar 13, 2017 12:10
[2017-03-13 16:00] VITALS: BP 136/80; PULSE 80; RESP 20; TEMP 96.9; O2SAT 97
[2017-03-16 23:54] LABS: MITOCHONDRIAL ABS LESS THAN 20.0 U (())
== END 2017-03-13 20:13 | DRG 872 ==
LOC: PHED 20:33 → PHEDA 03-09 00:09 → PH3B 03-09 01:23
PROVIDERS: ADMIT Family Medicine; ATTEND Family Medicine
DX: A41.9 Sepsis, unspecified organism (principal); K76.89 Other specified diseases of liver; I11.9 Hypertensive heart disease without heart failure; N39.0 Urinary tract infection, site not specified; I48.91 Unspecified atrial fibrillation; G60.0 Hereditary motor and sensory neuropathy; E78.5 Hyperlipidemia, unspecified; E87.6 Hypokalemia; G89.29 Other chronic pain; K21.9 Gastro-esophageal reflux disease without esophagitis; M19.90 Unspecified osteoarthritis, unspecified site; R29.6 Repeated falls; Z66 Do not resuscitate; Z79.01 Long term (current) use of anticoagulants; Z86.14 Personal history of Methicillin resistant Staphylococcus aureus infection; Z96.651 Presence of right artificial knee joint; Z99.3 Dependence on wheelchair
CPT/HCPCS: 71010; 76705; 78226; 80053; 80074; 80076; 81001; 82103; 82105; 82390; 83520; 83540; 83550; 83605; 83690; 83735; 84484; 85025; 85610; 86038; 86256; 87040; 87086; 87641; 93005; 96365; 96368; A9537; J0696; J2543; J3370; J7030; J7050

== ENCOUNTER 2017-04-30 23:44 | Observation (INO) | payer MEDICARE, BC ==
[~2017-04-30] VITALS: Ht 157.5 cm; Wt 58.0 kg
[~2017-04-30 23:44] MED LIST changes: -AZIT250T74 PO; +CALC1TAB87 PO; -CALTTAB5 PO; -CART300C2 PO; -CIPR500T2 PO; -COUM3TAB PO; +DILT300C3 PO; -LISI20 PO; +PANT40TA3 PO; +WARF-18 PO
[2017-04-30 23:54] VITALS: BP 187/82; PULSE 76; RESP 20; TEMP 98.3; O2SAT 98
[2017-05-01] VITALS (9 sets, daily range): BP systolic 104–184; BP diastolic 54–80; PULSE 42–79; RESP 16–22; TEMP 97.8–98.9; O2SAT 95–98
--- NOTE | 2017-05-01 00:01 | PD ---
HPI Chief Complaint: General Weakness Time Seen by Provider: 23:48 Travel History International Travel<30 days: No Contact w/Intl Traveler<30days: No Traveled to known affect area: No History of Present Illness HPI 86yo F with PMH of HTN, afib, charcot chris tooth brought in from [facility] assisted living [facility] for generalized weakness today. Pt is wheelchair bound but usually is able to get from wheelchair to bed and to the bathroom but weaker today and unable to do that. Pt slid down from bed today and hit her back. However, denies any LOC or head trauma. Denies any dizziness , chest pain, sob, n/v, abdominal pain, focal weakness or numbness. Pt was just admitted 03/09/17-03/13/17 for sepsis secondary to UTI. PFSH Past Medical History Hx Anticoagulant Therapy: Yes Arthritis: Yes (hands) Atrial Fibrillation: Yes Autoimmune Disease: No Blood Disorders: No Anxiety: No Depression: No Heart Rhythm Problems: Yes (A FIB) Cancer: No Cardiovascular Problems: Yes Chemotherapy: No Cerebrovascular Accident: No Diabetes: No Endocrine: No Gastrointestinal Disorders: Yes GERD: Yes Genitourinary: Yes (OCC INCONTINENT, WEARS BRIEF) Hypertension: Yes Immune Disorder: No Neurologic: Yes Psychiatric: No Reproductive: No Respiratory: No Pneumonia: Yes Radiation Therapy: No Seizures: No Thyroid Disease: No Triglycerides - High: Yes Past Surgical History AICD: No Body Medical Devices: BLADDER STIMULATOR Genitourinary Surgery: No Joint Replacement: Yes (LEFT KNEE) Pacemaker: No Other Surgery: Yes Social History Alcohol Use: Yes (WHISKEY, 3 DRINKS DAILY) Tobacco Use: No Substance Use: No Allergies-Medications (Allergen,Severity, Reaction): Coded Allergies: Codeine (Verified Allergy, Severe, Rash, 05/01/17) Nifedipine (Verified Allergy, Severe, 01/03/05: PT TAKES CARDIZEM CD AT HOME W/O ADVERSE EFFECT, 05/01/17) REACTION TO ADALAT 01/03/05: PT TAKES CARIDZEM CD AT HOME WITHOUT ADVERSE EFFECT Actonel (Verified Allergy, Intermediate, 05/01/17) Fosamax (Verified Allergy, Intermediate, 05/01/17) Oxybutynin (Verified Allergy, Intermediate, 05/01/17) Procardia (Verified Allergy, Intermediate, 05/01/17) MRI PRECAUTION (Verified Adverse Reaction, Intermediate, Bladder stimulator. Brain scans only in PO. 03/12/17 lrs, 05/01/17) *MDRO Multi-Drug Resistant Organism (Verified Adverse Reaction, Unknown, MRSA, 05/01/17) MRSA PCR (nares) POSITIVE - 03/10/17 Reported Meds & Prescriptions Reported Meds & Active Scripts Active Reported Calcium 600 with Vitamin D (Calcium Carbonate-Cholecalciferol) 600-400 mg-Unit Tab 1 Tab PO DAILY Diltiazem CD 24 HR 300 Mg Caper 300 Mg PO DAILY Pantoprazole (Pantoprazole Sodium) 40 Mg Tab 40 Mg PO DAILY Warfarin 2.5 Mg Tab 2.5 Mg PO DAILY Review of Systems Except as stated in HPI: all other systems reviewed are Neg Physical Exam Narrative GENERAL: 86yo F not in distress. SKIN: Focused skin assessment warm/dry. HEAD: Atraumatic. Normocephalic. EYES: Pupils equal and round. No scleral icterus. No injection or drainage. ENT: No nasal bleeding or discharge. Mucous membranes pink and moist. NECK: Trachea midline. No JVD. CARDIOVASCULAR: Regular rate and rhythm. No murmur appreciated. RESPIRATORY: No accessory muscle use. Clear to auscultation. Breath sounds equal bilaterally. GASTROINTESTINAL: Abdomen soft, non-tender, nondistended. No rebound tenderness or guarding. BACK: No midline ttp thoracic or lumbar spine. MUSCULOSKELETAL: No obvious deformities. No clubbing. No cyanosis. No edema. NEUROLOGICAL: Awake and alert. No obvious cranial nerve deficits. Pt has bilateral lower ext weakness that is not new. Sensation equal bilaterally. Normal speech. PSYCHIATRIC: Appropriate mood and affect; insight and judgment normal. Data Data Last Documented VS Vital Signs Date Time Temp Pulse Resp B/P Pulse Ox O2 Delivery O2 Flow Rate FiO2 05/01/17 02:43 65 18 184/75 97 Room Air 04/30/17 23:54 98.3 Orders Complete Blood Count With Diff (04/30/17 23:57) Basic Metabolic Panel (Bmp) (04/30/17 23:57) Ckmb (Isoenzyme) Profile (04/30/17 23:57) Troponin I (04/30/17 23:57) Urinalysis - C+S If Indicated (04/30/17 23:57) Electrocardiogram (04/30/17 ) Acetaminophen (Tylenol) (05/01/17 00:15) Spine, Lumbar - Ltd (Ap & Lat) (05/01/17 ) Prothrombin Time / Inr (Pt) (05/01/17 00:42) Act Partial Throm Time (Ptt) (05/01/17 00:42) Chest, Single Ap (05/01/17 ) Lactic Acid Sepsis Protocol (05/01/17 01:38) Admit Order (Ed Use Only) (05/01/17 02:53) Labs Laboratory Tests Test 05/01/17 05/01/17 00:45 02:25 White Blood Count 16.6 TH/MM3 Red Blood Count 5.13 MIL/MM3 Hemoglobin 14.2 GM/DL Hematocrit 42.2 % Mean Corpuscular Volume 82.3 FL Mean Corpuscular Hemoglobin 27.8 PG Mean Corpuscular Hemoglobin 33.7 % Concent Red Cell Distribution Width 16.2 % Platelet Count 482 TH/MM3 Mean Platelet Volume 7.8 FL Neutrophils (%) (Auto) 86.1 % Lymphocytes (%) (Auto) 6.0 % Monocytes (%) (Auto) 6.7 % Eosinophils (%) (Auto) 0.4 % Basophils (%) (Auto) 0.8 % Neutrophils # (Auto) 14.2 TH/MM3 Lymphocytes # (Auto) 1.0 TH/MM3 Monocytes # (Auto) 1.1 TH/MM3 Eosinophils # (Auto) 0.1 TH/MM3 Basophils # (Auto) 0.1 TH/MM3 CBC Comment DIFF FINAL Differential Comment Prothrombin Time 17.8 SEC Prothromb Time International 1.6 RATIO Ratio Activated Partial 28.8 SEC Thromboplast Time Urine Color YELLOW Urine Turbidity CLEAR Urine pH 7.0 Urine Specific [place] 1.005 Urine Protein NEG mg/dL Urine Glucose (UA) NEG mg/dL Urine Ketones NEG mg/dL Urine Occult Blood TRACE Urine Nitrite NEG Urine Bilirubin NEG Urine Urobilinogen LESS THAN 2.0 MG/DL Urine Leukocyte Esterase MOD Urine RBC 1 /hpf Urine WBC 5 /hpf Urine Squamous Epithelial <1 /hpf Cells Urine Amorphous Sediment RARE Urine Bacteria RARE /hpf Microscopic Urinalysis Comment CULT NOT INDICATED Sodium Level 135 MEQ/L Potassium Level 4.7 MEQ/L Chloride Level 99 MEQ/L Carbon Dioxide Level 27.9 MEQ/L Anion Gap 8 MEQ/L Blood Urea Nitrogen 10 MG/DL Creatinine 0.55 MG/DL Estimat Glomerular Filtration 105 ML/MIN Rate Random Glucose 109 MG/DL Calcium Level 8.8 MG/DL Total Creatine Kinase 86 U/L Troponin I LESS THAN 0.02 NG/ML Lactic Acid Level 0.9 mmol/L MDM Medical Decision Making Medical Screen Exam Complete: Yes Emergency Medical Condition: Yes Interpretation(s) EKG: Afib at 62bpm. Normal axis. ST depression V4-V6. Q wave V1, V2. Differential Diagnosis UTI vs. electrolyte abnormality vs. dehydration Narrative Course 86yo F from assisted living here because of generalized weakness. As per son, this is new today. Pt is usually able to get herself from wheelchair to bed and bathroom and now unable to. Pt will require a higher level of care than assisted living given her weakness today and likely need physical therapy. Labs reviewed, leukocytosis at 16.6. Lactic acid normal at 0.9. Troponin negative. INR subtherapeutic at 1.6. UA showed moderate leukocyte. Rare bacteria but culture not indicated. CXR normal. Xray LS showed chronic degenerative disease at multiple levels. No acute fracture. I discussed with patient's son who is very concern about the level of care at the assisted living given pt's new generalized weakness today. Discussed with Dr. Rod and admitted pt to observation for new generalized weakness. Diagnosis Primary Impression: Generalized weakness Admitting Information Admitting Physician Requests: Padma Keene DO May 01, 2017 00:01
[2017-05-01] MEDS ORDERED: ACETAMINOPHEN 325 MG TAB PO ONE (00:15)
--- NOTE | 2017-05-01 00:49 | RADRPT ---
EXAM DATE/TIME: 05/01/2017 00:28 [facility] COMPARISON: No previous studies available for comparison. INDICATIONS : Fall out of bed, low back pain. MEDICAL HISTORY : None. SURGICAL HISTORY : None. ENCOUNTER: Initial ACUITY: 1 day PAIN SCORE: 6/10 LOCATION: low back FINDINGS: Two view examination was performed. There are five non-rib bearing vertebral bodies. There is a uppe r leftward lumbar scoliosis. Marked intervertebral disc space narrowing at the L4-5 level. The disc spaces are otherwise maintained. The pedicles are intact. Bony mineralization is normal. No fractu re is identified. LEFT-sided stimulator placement with the lead overlying the right hemisacrum CONCLUSION: Chronic degenerative disease at multiple levels. No acute fracture Giovanny Dalton MD on May 01, 2017 at 0:46 Board Certified Radiologist. This report was verified electronically.
[2017-05-01 00:59] LABS: AUTOMATED NEUTROPHIL # 14.2 TH/MM3 (1.8-7.7); BASOPHIL # 0.1 TH/MM3 (0-0.2); BASOPHIL % 0.8 % (0.0-2.0); EOSINOPHIL # 0.1 TH/MM3 (0-0.4); EOSINOPHIL % 0.4 % (0.0-4.0); HEMATOCRIT 42.2 % (35.0-46.0); HEMO FLAGS DIFF FINAL; MEAN CELL VOLUME 82.3 FL (80.0-100.0); MEAN CORPUSCULAR HEMOGLOBIN 27.8 PG (27.0-34.0); MEAN CORPUSCULAR HGB CONC 33.7 % (32.0-36.0); MONO % 6.7 % (0.0-8.0); NEUT % 86.1 % (16.0-70.0); PLATELET COUNT 482 TH/MM3 (150-450); RED BLOOD COUNT 5.13 MIL/MM3 (4.00-5.30); RED CELL DISTRIBUTION WIDTH 16.2 % (11.6-17.2); WHITE BLOOD COUNT 16.6 TH/MM3 (4.0-11.0)
[2017-05-01 01:13] LABS: APTT (PATIENT) 28.8 SEC (24.3-30.1); INTERNATIONAL NORMALIZED RATIO 1.6 RATIO; PROTHROMBIN TIME - PATIENT 17.8 SEC (9.8-11.6)
[2017-05-01 01:25] LABS: BACTERIA, URINE RARE /hpf; BLOOD, URINE TRACE (NEG); GLUCOSE,URINE NEG (NEG); KETONE, URINE NEG (NEG); NITRITE,URINE NEG (NEG); SQUAMOUS EPITHELIAL CELL URINE <1 /hpf (0-5); URINE COLOR YELLOW (YELLW/STRAW)
[2017-05-01 01:26] LABS: COMMENT (UR) CULT NOT INDICATED; CULTURE IF INDICATED CULT NOT INDICATED
[2017-05-01 01:38] LABS: ANION GAP 8 MEQ/L (5-15); BICARBONATE 27.9 MEQ/L (21.0-32.0); BLOOD UREA NITROGEN 10 MG/DL (7-18); CHLORIDE 99 MEQ/L (98-107); GLOMERULAR FILTRATION RATE 105 ML/MIN (>89); SODIUM (NA) 135 MEQ/L (136-145)
[2017-05-01 01:40] LABS: CREATINE KINASE 86 U/L (26-192); POTASSIUM 4.7 MEQ/L (3.5-5.1)
--- NOTE | 2017-05-01 01:48 | RADRPT ---
EXAM DATE/TIME: 05/01/2017 00:58 [facility] COMPARISON: CHEST SINGLE AP, March 08, 2017, 22:02. INDICATIONS : Back pain, fall. MEDICAL HISTORY : None. SURGICAL HISTORY : None. ENCOUNTER: Subsequent ACUITY: 1 day PAIN SCORE: 10/10 LOCATION: Bilateral back FINDINGS: A single view of the chest demonstrates the lungs to be symmetrically aerated without evidence of mas s, infiltrate or effusion. The cardiomediastinal contours are unremarkable. Osseous structures are intact. Marked atherosclerotic disease. Biapical pleural-parenchymal thickening is unchanged. CONCLUSION: Normal examination. Giovanny Dalton MD on May 01, 2017 at 1:46 Board Certified Radiologist. This report was verified electronically.
[2017-05-01] MEDS ORDERED: ACETAMINOPHEN 325 MG TAB PO PRN ×2 (03:00)
[2017-05-01] MEDS ORDERED: MAGNESIUM HYDROXIDE SUSP 30 ML CUP PO PRN (03:00)
[2017-05-01] MEDS ORDERED: ONDANSETRON HCL 4 MG/2 ML VIAL IVP PRN (03:00)
[2017-05-01] MEDS: HEPARIN SODIUM - SQ 10,000 UNITS/ML VIAL SQ SCH ×3 (03:11→19:18)
[2017-05-01] MEDS ORDERED: cefTRIAXone INJ 1,000 MG in SODIUM CHLORIDE 0.9% INJ 100 ML IV SCH (08:00)
[2017-05-01] MEDS: DOCUSATE SODIUM 50 MG/SENNA 8.6 MG TAB PO SCH ×2 (08:30→20:45)
[2017-05-01] MEDS: PANTOPRAZOLE SOD 40 MG DELAYED RELEASE TAB PO SCH (08:30)
[2017-05-01] MEDS ORDERED: cloNIDine HCL 0.1 MG TAB PO PRN ×2 (10:00→11:15)
[2017-05-01] MEDS: DILTIAZEM-CD 300 MG CAP ER PO SCH (10:55)
--- NOTE | 2017-05-01 11:20 | HHI.HP ---
[facility] Service [facility] Primary Care Physician Max Grimm MD Admission Diagnosis Generalized weakness Diagnoses: (1) Generalized weakness Diagnosis: Principal (2) UTI (urinary tract infection) Diagnosis: Principal Travel History International Travel<30 Days: No Contact w/Intl Traveler <30 Da: No Traveled to Known Affected Are: No History of Present Illness Mrs. Keyes is an 86-year-old female. She is brought into the hospital secondary to weakness and inability to stand. She has poor ambulation at baseline (wheelchair bound) but is capable of standing and pivoting, but recently this is not a possibility for her. Dementia is present at baseline and limits my history with her. She doesn't complain of any pain. She denies any dysuria. She has been recently hospitalized for UTI and sepsis. Urinalysis findings suggest possible urinary tract infection given bacteria are present and leukoesterases elevated. She also has leukocytosis. If UTI is present again this may be contributory to her weakness. No other findings to explain her weakness are evident. She is not septic. No fevers, no vomiting, no diarrhea. At baseline she lives in an assisted nursing facility ( [facility]). Review of Systems Constitutional: COMPLAINS OF: Fatigue, DENIES: Fever, Chills Eyes: DENIES: Blurred vision, Diplopia Ears, nose, mouth, throat: DENIES: Hearing loss, Vertigo Respiratory: DENIES: Cough, Wheezing, Shortness of breath Cardiovascular: DENIES: Palpitations, Syncope Gastrointestinal: DENIES: Abdominal pain, Black stools, Bloody stools Musculoskeletal: DENIES: Joint pain, Muscle aches Integumentary: DENIES: Abnormal pigmentation, Pruritus, Rash Hematologic/lymphatic: DENIES: Bruising Immunologic/allergic: DENIES: Eczema Neurologic: DENIES: Abnormal gait, Headache Psychiatric: DENIES: Anxiety, Confusion Past Family Social History Past Medical History Dementia History of MRSA cellulitis Arthritis Atrial fibrillation (on Coumadin) Gastroesophageal reflux disease Hypertension Hyperlipidemia [id number] Past Surgical History Bladder stimulator Ankle surgery Knee surgery Reported Medications Reported Meds & Active Scripts Active Reported Calcium 600 with Vitamin D (Calcium Carbonate-Cholecalciferol) 600-400 mg-Unit Tab 1 Tab PO DAILY Diltiazem CD 24 HR 300 Mg Caper 300 Mg PO DAILY Pantoprazole (Pantoprazole Sodium) 40 Mg Tab 40 Mg PO DAILY Warfarin 2.5 Mg Tab 2.5 Mg PO DAILY Allergies: Coded Allergies: Codeine (Verified Allergy, Severe, Rash, 05/01/17) Nifedipine (Verified Allergy, Severe, 01/03/05: PT TAKES CARDIZEM CD AT HOME W/O ADVERSE EFFECT, 05/01/17) REACTION TO ADALAT 01/03/05: PT TAKES CARIDZEM CD AT HOME WITHOUT ADVERSE EFFECT Actonel (Verified Allergy, Intermediate, 05/01/17) Fosamax (Verified Allergy, Intermediate, 05/01/17) Oxybutynin (Verified Allergy, Intermediate, 05/01/17) Procardia (Verified Allergy, Intermediate, 05/01/17) MRI PRECAUTION (Verified Adverse Reaction, Intermediate, Bladder stimulator. Brain scans only in PO. 03/12/17 lrs, 05/01/17) *MDRO Multi-Drug Resistant Organism (Verified Adverse Reaction, Unknown, MRSA, 05/01/17) MRSA PCR (nares) POSITIVE - 03/10/17 Active Ordered Medications Administered Medications Medications (Trade) Dose Ordered Sig/Gauri Route PRN Reason Start Time Stop Time Status Last Admin Dose Admin Heparin Sodium (Porcine) (Heparin Inj) 5,000 units Q8H SQ 05/01/17 03:00 05/01/17 10:55 Senna/Docusate Sodium (Hilda-Colace) 1 tab BID PO 05/01/17 09:00 05/01/17 08:30 Diltiazem HCl (Cardizem Cd) 300 mg DAILY PO 05/01/17 09:00 05/01/17 10:55 Pantoprazole Sodium 40 mg 40 mg DAILY PO 05/01/17 09:00 05/01/17 08:30 Ceftriaxone Sodium/Sodium Chloride (Rocephin Inj/NS Inj) 100 ml @ 200 mls/hr Q24H IV 05/01/17 08:00 05/01/17 08:30 Clonidine (Catapres) 0.1 mg Q6H PRN PO SBP>160, DBP>90 05/01/17 10:00 05/01/17 10:55 Family History None No coronary artery disease Social History No tobacco use No drug abuse History of alcohol use without abuse Physical Exam Vital Signs Vital Signs Date Time Temp Pulse Resp B/P Pulse Ox O2 Delivery O2 Flow Rate FiO2 05/01/17 08:49 98.9 79 18 97 05/01/17 05:40 98.4 77 18 173/68 95 05/01/17 04:18 68 18 168/80 97 Room Air 05/01/17 02:43 65 18 184/75 97 Room Air 05/01/17 01:12 68 20 97 Room Air 05/01/17 00:55 67 22 173/72 97 Room Air 04/30/17 23:54 98.3 76 20 187/82 98 Physical Exam GENERAL: NAD, A&Ox2, global weakness, lethargy SKIN: Warm and dry. HEAD: Normocephalic. EYES: No scleral icterus. No injection or drainage. NECK: Supple, trachea midline. No JVD or lymphadenopathy. CARDIOVASCULAR: Regular rate and rhythm without murmurs, gallops, or rubs. RESPIRATORY: Breath sounds equal bilaterally. No accessory muscle use. GASTROINTESTINAL: Abdomen soft, non-tender, nondistended. MUSCULOSKELETAL: No cyanosis, or edema. Laboratory Laboratory Tests Test 05/01/17 05/01/17 00:45 02:25 White Blood Count 16.6 Red Blood Count 5.13 Hemoglobin 14.2 Hematocrit 42.2 Mean Corpuscular Volume 82.3 Mean Corpuscular Hemoglobin 27.8 Mean Corpuscular Hemoglobin 33.7 Concent Red Cell Distribution Width 16.2 Platelet Count 482 Mean Platelet Volume 7.8 Neutrophils (%) (Auto) 86.1 Lymphocytes (%) (Auto) 6.0 Monocytes (%) (Auto) 6.7 Eosinophils (%) (Auto) 0.4 Basophils (%) (Auto) 0.8 Neutrophils # (Auto) 14.2 Lymphocytes # (Auto) 1.0 Monocytes # (Auto) 1.1 Eosinophils # (Auto) 0.1 Basophils # (Auto) 0.1 CBC Comment DIFF FINAL Differential Comment Prothrombin Time 17.8 Prothromb Time International 1.6 Ratio Activated Partial 28.8 Thromboplast Time Urine Color YELLOW Urine Turbidity CLEAR Urine pH 7.0 Urine Specific [place] 1.005 Urine Protein NEG Urine Glucose (UA) NEG Urine Ketones NEG Urine Occult Blood TRACE Urine Nitrite NEG Urine Bilirubin NEG Urine Urobilinogen LESS THAN 2.0 Urine Leukocyte Esterase MOD Urine RBC 1 Urine WBC 5 Urine Squamous Epithelial <1 Cells Urine Amorphous Sediment RARE Urine Bacteria RARE Microscopic Urinalysis Comment CULT NOT INDICATED Sodium Level 135 Potassium Level 4.7 Chloride Level 99 Carbon Dioxide Level 27.9 Anion Gap 8 Blood Urea Nitrogen 10 Creatinine 0.55 Estimat Glomerular Filtration 105 Rate Random Glucose 109 Calcium Level 8.8 Total Creatine Kinase 86 Troponin I LESS THAN 0.02 Lactic Acid Level 0.9 Result Diagram: 05/01/174405/01/1744 Assessment and Plan Problem List: (1) UTI (urinary tract infection) ICD Code: N39.0 Status: Acute (2) Generalized weakness ICD Code: R53.1 Status: Acute Assessment and Plan Assessment and plan 86-year-old female admitted with global weakness and UTI Urinary tract infection Acute onset of global weakness Rocephin Follow for improvement in strength Physical therapy Dementia Supportive care Atrial fibrillation (on Coumadin) Follow on telemetry Continue Coumadin Follow INR Hypertension Follow blood pressures Continue baseline treatments for blood pressure Add when necessary clonidine Hyperlipidemia Continue baseline treatments Follow as an outpatient DVT prophylaxis Continue Coumadin Calos Gao MD May 01, 2017 11:20
[2017-05-01] MEDS: SODIUM CHLOR 0.9% 1000 ML INJ 1,000 ML IV SCH ×2 (14:15→23:57)
[2017-05-01] MEDS ORDERED: BACT800T5 PO (14:19)
--- NOTE | 2017-05-01 15:29 | EKG ---
Date Performed: 05/01/2017 Time Performed: 00:20:45 PTAGE: 86 years EKG: ATRIAL FIBRILLATION SEPTAL MYOCARDIAL INFARCTION SINCE PRIOR TRACING VENTRICULAR RESPONSE A TRIAL FIBRILLATION IS SLIGHTLY FASTER. ST CHANGES ARE SLIGHTLY MORE PROMINANT. CONSIDER ISCHEMIA VS DIGOXIN EFFECT. ABNORMAL ECG PREVIOUS TRACING : 05/01/2017 00.12 DOCTOR: Fredrick Cunningham Interpretating Date/Time 05/01/2017 15:27:57
[2017-05-01] MEDS ORDERED: WARFARIN SOD 2.5 MG TAB PO SCH (16:00)
[2017-05-02 00:17] VITALS: PULSE 51
[2017-05-02 00:23] VITALS: BP 110/58; PULSE 66; RESP 18; TEMP 98.4; O2SAT 97
[2017-05-02] MEDS: HEPARIN SODIUM - SQ 10,000 UNITS/ML VIAL SQ SCH ×2 (02:27→11:45)
[2017-05-02 05:03] LABS: MEAN CELL VOLUME 82.9 FL (80.0-100.0); MEAN CORPUSCULAR HEMOGLOBIN 26.9 PG (27.0-34.0); MEAN CORPUSCULAR HGB CONC 32.4 % (32.0-36.0); PLATELET COUNT 356 TH/MM3 (150-450); RED BLOOD COUNT 4.83 MIL/MM3 (4.00-5.30); RED CELL DISTRIBUTION WIDTH 16.9 % (11.6-17.2); REVIEW FLAG FINAL; WHITE BLOOD COUNT 11.6 TH/MM3 (4.0-11.0)
[2017-05-02 05:04] VITALS: BP 101/58; PULSE 68; RESP 18; TEMP 98.4; O2SAT 96
[2017-05-02 05:23] LABS: INTERNATIONAL NORMALIZED RATIO 1.8 RATIO; PROTHROMBIN TIME - PATIENT 20.9 SEC (9.8-11.6)
[2017-05-02 05:35] LABS: BICARBONATE 24.1 MEQ/L (21.0-32.0)
[2017-05-02 05:40] LABS: POTASSIUM 2.9 MEQ/L (3.5-5.1)
[2017-05-02] MEDS ORDERED: POTASSIUM CHLOR 20 MEQ PREMIX 100 ML IV ONE (05:45)
[2017-05-02] MEDS ORDERED: POTASSIUM CHLORIDE 20 MEQ CONTROLLED RELEASE TAB PO ONE ×2 (05:45→12:45)
[2017-05-02] MEDS ORDERED: cefTRIAXone INJ 1,000 MG in SODIUM CHLORIDE 0.9% INJ 100 ML IV SCH (06:00)
[2017-05-02 06:01] LABS: MAGNESIUM 2.2 MG/DL (1.5-2.5)
[2017-05-02 07:38] VITALS: PULSE 70
[2017-05-02 08:00] VITALS: BP 152/67; PULSE 60; RESP 24; TEMP 98.5; O2SAT 91
[2017-05-02 09:06] VITALS: PULSE 59; RESP 20; RESP 59; O2SAT 97
[2017-05-02] MEDS: PANTOPRAZOLE SOD 40 MG DELAYED RELEASE TAB PO SCH (09:51)
[2017-05-02] MEDS: DILTIAZEM-CD 300 MG CAP ER PO SCH (09:51)
[2017-05-02] MEDS: DOCUSATE SODIUM 50 MG/SENNA 8.6 MG TAB PO SCH (09:51)
[2017-05-02] MEDS: SODIUM CHLOR 0.9% 1000 ML INJ 1,000 ML IV SCH (09:52)
--- NOTE | 2017-05-02 12:42 | HHI.DCPOC ---
Discharge Care Plan Diagnosis: (1) UTI (urinary tract infection) (2) Generalized weakness Goals to Promote Your Health * To prevent worsening of your condition and complications * To maintain your health at the optimal level Directions to Meet Your Goals Take your medications as prescribed Follow your dietary instruction Follow activity as directed Keep your appointments as scheduled Take your immunizations and boosters as scheduled If your symptoms worsen call your PCP, if no PCP go to Urgent Care Center or Emergency Room Smoking is Dangerous to Your Health. Avoid second hand smoke Call the 24-hour hour crisis hotline for domestic abuse at Samantha Campa PA-C May 02, 2017 12:42 pm
--- NOTE | 2017-05-02 12:42 | HHI.PR ---
Subjective Remarks Follow up for weakness, UTI. The patient reports feeling well today, denies any specific medical complaints including no fever/chills, headache, lightheadedness , dizziness, chest pain, palpitations, shortness of breath, abdominal pain, or dysuria. Son is at bedside, states patient looks much better, back to baseline. Blood sugar low this morning, patient reports she's not a big breakfast eater, but also received diabetic diet last night although patient is not diabetic. Potassium also low today, patient denies any vomiting or diarrhea. Discussed the patient's oral intake, she states she maybe eats half her meals at the [facility]. Discussed starting Ensure shakes, patient agrees to this. Objective Vitals Vital Signs Date Time Temp Pulse Resp B/P Pulse Ox O2 Delivery O2 Flow Rate FiO2 05/02/17 09:06 59 20 97 05/02/17 08:00 98.5 60 24 152/67 91 05/02/17 05:04 98.4 68 18 101/58 96 05/02/17 00:23 98.4 66 18 110/58 97 05/02/17 00:17 51 05/01/17 20:00 97.8 74 18 104/54 96 05/01/17 16:08 98.0 50 18 107/56 98 05/01/17 15:38 42 I/O 05/01/17 05/01/17 05/01/17 05/02/17 05/02/17 05/02/17 07:00 15:00 23:00 07:00 15:00 23:00 Intake Total 0 ml 20 ml 1200 ml 565 ml Balance 0 ml 20 ml 1200 ml 565 ml Intake Oral 0 ml 20 ml 240 ml IV Total 1200 ml 325 ml # Voids 1 1 Result Diagram: 05/02/17 0407 05/02/17 0407 Imaging Last Impressions Lumbar Spine X-Ray 05/01/17 0000 Signed Impressions: Service Date/Time: April 00:28 - CONCLUSION: Chronic degenerative disease at multiple levels. No acute fracture Giovanny Dalton MD Chest X-Ray 05/01/17 0000 Signed Impressions: Service Date/Time: April 00:58 - CONCLUSION: Normal examination. Giovanny Dalton MD Objective Remarks GENERAL: Well-nourished, well-developed pleasant elderly female patient in [facility]. SKIN: Warm and dry. No rash. HEENT: Normocephalic. Atraumatic.Pupils equal and round. Mucous membranes pink and moist. NECK: Supple. Trachea midline. CARDIOVASCULAR: Regular rate and rhythm. S1, S2 noted. No murmur appreciated. RESPIRATORY: No accessory muscle use. Clear to auscultation. Breath sounds equal bilaterally. GASTROINTESTINAL: Abdomen soft, non-tender, nondistended. Normoactive bowel sounds x4. MUSCULOSKELETAL: No obvious deformities. Extremities without clubbing, cyanosis , or edema. NEUROLOGICAL: Awake and alert. No obvious cranial nerve deficits. Motor grossly within normal limits. Normal speech. PSYCHIATRIC: Appropriate mood and affect; insight and judgment normal. Medications and IVs Current Medications Medications (Trade) Dose Ordered Sig/Gauri Route Start Time Stop Time Status Last Admin (Tylenol) 650 mg Q4H PRN PO 05/01/17 03:00 (Zofran Inj) 4 mg Q6H PRN IVP 05/01/17 03:00 (Heparin Inj) 5,000 units Q8H SQ 05/01/17 03:00 05/02/17 11:45 (Tylenol) 650 mg Q6H PRN PO 05/01/17 03:00 05/01/17 11:16 (Hilda-Colace) 1 tab BID PO 05/01/17 09:00 05/02/17 09:51 (Milk Of Magnesia Liq) 30 ml Q12H PRN PO 05/01/17 03:00 (Cardizem Cd) 300 mg DAILY PO 05/01/17 09:00 05/02/17 09:51 (Protonix) 40 mg DAILY PO 05/01/17 09:00 05/02/17 09:51 (Coumadin) 2.5 mg DAILY@16 PO 05/01/17 16:00 05/01/17 17:18 (Catapres) 0.1 mg Q6H PRN PO 05/01/17 10:00 05/01/17 10:55 Clonidine 0.1 mg 0.1 mg Q6H PRN PO 05/01/17 11:15 Ceftriaxone Sodium 1000 mg/ Sodium Chloride 100 ml @ 200 mls/hr Q24H IV 05/02/17 06:00 6/9/17 05:54 (NS 1000 ml Inj) 1,000 ml @ 100 mls/hr Q10H IV 05/01/17 14:15 05/02/17 09:52 A/P Problem List: (1) UTI (urinary tract infection) ICD Code: N39.0 Status: Acute (2) Generalized weakness ICD Code: R53.1 Status: Acute Assessment and Plan 86-year-old female with history of dementia, arthritis, afib on Coumadin, GERD, HTN, HLD, presents with acute global weakness, diagnosed with UTI upon arrival Urinary tract infection with Acute onset of global weakness: strongly suspect infection contributed to acute onset of weakness. -Continue IV Rocephin -PT consulted, recommends rehab -Follow urine culture, preliminary with gram negative rods -discharged on po Bactrim x1week Metabolic Encephalopathy: secondary to UTI as above. -Treat infection -Follow clinically for improvement -Patient much improved, back to baseline per her son at bedside Dementia: chronic, stable -continue Supportive care Atrial fibrillation (on Coumadin): chronic, stable -Follow on telemetry -Continue Coumadin and Cardizem -Follow INR Hypertension: chronic, BP well controlled -Follow blood pressures -Continue home Cardizem -Added prn clonidine Hypoglycemia: patient with episode of hypoglycemia today, blood glucose 69. Suspect secondary to patient being on diabetic diet although is not diabetic. Patient also did not eat much breakfast, she states she is not a "big breakfast eater". Patient was awake, alert, asymptomatic -given [place] Juice -changed to regular diet -blood glucose improved to 94 Hypokalemia: suspect secondary to decreased po intake vs dilutional. -given po and IV KCl replacement -repeat K today 4.0, resolved GERD: chronic -continue patient's Protonix DVT prophylaxis: Continue Coumadin Discharge Planning Discharge patient to SNF Condition on discharge: Improved Regular Diet as tolerated Ad Nathalie activity Rx written: Bactrim 1tab po bid x7days Follow-up with primary care physician within 1 week Samantha Campa PA-C May 02, 2017 12:42 pm
[2017-05-02] MEDS ORDERED: BACT800T5 PO (13:16)
== END 2017-05-02 16:10 ==
LOC: NEPC 23:44 → NEDA 05-01 02:55 → NEPHCDU 05-01 05:14
PROVIDERS: ADMIT Internal Medicine; ATTEND Internal Medicine
DX: N39.0 Urinary tract infection, site not specified (principal); I10 Essential (primary) hypertension; G93.41 Metabolic encephalopathy; E16.2 Hypoglycemia, unspecified; I48.91 Unspecified atrial fibrillation; K21.9 Gastro-esophageal reflux disease without esophagitis; E87.6 Hypokalemia; B96.1 Klebsiella pneumoniae [K. pneumoniae] as the cause of diseases classified elsewhere; G60.0 Hereditary motor and sensory neuropathy; M19.042 Primary osteoarthritis, left hand; M19.041 Primary osteoarthritis, right hand; F03.90 Unspecified dementia, unspecified severity, without behavioral disturbance, psychotic disturbance, mood disturbance, and anxiety; Z86.14 Personal history of Methicillin resistant Staphylococcus aureus infection; Z99.3 Dependence on wheelchair; Z87.01 Personal history of pneumonia (recurrent); Z79.01 Long term (current) use of anticoagulants; Z88.5 Allergy status to narcotic agent; Z88.8 Allergy status to other drugs, medicaments and biological substances; Z96.652 Presence of left artificial knee joint; E78.5 Hyperlipidemia, unspecified
CPT/HCPCS: 71010; 72100; 80048; 81001; 82550; 82948; 83605; 83735; 84132; 84484; 85025; 85027; 85610; 85730; 87077; 87086; 87186; 92526; 92610; 93005; 96372; 97162; 97167; 99285; G0378; G8987; G8988; G8996; G8997; G8998; J0696; J1644; J3480; J7030

== ENCOUNTER 2017-06-12 10:53 | Inpatient (IN) | payer MEDICARE, BC ==
[~2017-06-12] VITALS: Ht 157.5 cm; Wt 59.8 kg
[2017-06-12] VITALS (8 sets, daily range): BP systolic 132–164; BP diastolic 60–91; PULSE 59–70; RESP 16–20; TEMP 97.8–98.9; O2SAT 92–99
[~2017-06-12 10:53] MED LIST changes: +BACT800T5 PO
--- NOTE | 2017-06-12 12:38 | RADRPT ---
EXAM DATE/TIME: 06/12/2017 12:19 [facility] COMPARISON: No previous studies available for comparison. INDICATIONS : Fall. Left hip pain. MEDICAL HISTORY : None. SURGICAL HISTORY : None. ENCOUNTER: Initial ACUITY: 1 day PAIN SCORE: 7/10 LOCATION: Left pelvis FINDINGS: Examination of the left hip was performed with AP Pelvis. Lucency in the femoral neck. No significant displacement. Mild degenerative changes. The acetabulum is grossly intact. Degenerative changes of each hip. CONCLUSION: Suspected subcapital femoral neck fracture left hip. Haroldo Greer MD on June 12, 2017 at 12:35 Board Certified Radiologist. This report was verified electronically.
[2017-06-12] MEDS ORDERED: SODIUM CHLORIDE 0.9% FLUSH 10 ML FLUSH IVF PRN (12:45)
[2017-06-12] MEDS ORDERED: ONDANSETRON HCL 4 MG/2 ML VIAL IVP ONE (12:45)
--- NOTE | 2017-06-12 12:51 | PD ---
HPI Chief Complaint: fall Time Seen by Provider: 11:21 Travel History International Travel<30 days: No Contact w/Intl Traveler<30days: No Traveled to known affect area: No History of Present Illness HPI 87-year-old female presents status post slip out of bed and injuring her left hip. She states she did not hit her head or black out. She denies any other concurrent complaints. Quality pain is sharp. Severity is mild. Pain is worse with movement. She states that she is on Coumadin for atrial fibrillation. PFSH Past Medical History Hx Anticoagulant Therapy: Yes (WARFARIN) Arthritis: Yes (hands) Atrial Fibrillation: Yes Autoimmune Disease: No Blood Disorders: No Anxiety: No Depression: No Heart Rhythm Problems: Yes (A FIB) Cancer: No Cardiovascular Problems: Yes Chemotherapy: No Cerebrovascular Accident: No Diabetes: No Endocrine: No Gastrointestinal Disorders: Yes GERD: Yes Genitourinary: Yes (OCC INCONTINENT, WEARS BRIEF) Hypertension: Yes Immune Disorder: No Implanted Vascular Access Dvce: Yes Neurologic: Yes Psychiatric: No Reproductive: No Respiratory: No Pneumonia: Yes Radiation Therapy: No Seizures: No Thyroid Disease: No Triglycerides - High: Yes ?: Not Menopausal: Yes Past Surgical History AICD: No Body Medical Devices: BLADDER STIMULATOR Genitourinary Surgery: No Joint Replacement: Yes (LEFT KNEE) Pacemaker: No Other Surgery: Yes Social History Alcohol Use: No (HX OF BUT NO CURRENT USE) Tobacco Use: No Substance Use: No Allergies-Medications (Allergen,Severity, Reaction): Coded Allergies: Codeine (Verified Allergy, Severe, Rash, 06/12/17) Nifedipine (Verified Allergy, Severe, 01/03/05: PT TAKES CARDIZEM CD AT HOME W/O ADVERSE EFFECT, 06/12/17) REACTION TO ADALAT 01/03/05: PT TAKES CARIDZEM CD AT HOME WITHOUT ADVERSE EFFECT Actonel (Verified Allergy, Intermediate, 06/12/17) Fosamax (Verified Allergy, Intermediate, 06/12/17) Oxybutynin (Verified Allergy, Intermediate, 06/12/17) Procardia (Verified Allergy, Intermediate, 06/12/17) MRI PRECAUTION (Verified Adverse Reaction, Intermediate, Bladder stimulator. Brain scans only in PO. 03/12/17 lrs, 06/12/17) *MDRO Multi-Drug Resistant Organism (Verified Adverse Reaction, Unknown, MRSA, 06/12/17) MRSA PCR (nares) POSITIVE - 03/10/17 Reported Meds & Prescriptions Reported Meds & Active Scripts Active Reported Calcium 600 with Vitamin D (Calcium Carbonate-Cholecalciferol) 600-400 mg-Unit Tab 1 Tab PO DAILY Diltiazem CD 24 HR 300 Mg Caper 300 Mg PO DAILY Pantoprazole (Pantoprazole Sodium) 40 Mg Tab 40 Mg PO DAILY Warfarin 2.5 Mg Tab 3 Mg PO DAILY Review of Systems Except as stated in HPI: all other systems reviewed are Neg Physical Exam Narrative GENERAL: Well-nourished, well-developed patient. Laying on her side SKIN: Warm and dry. HEAD: Normocephalic and atraumatic. EYES: No injection or drainage. ENT: No nasal drainage noted. NECK: Supple, trachea midline. Nontender in midline CARDIOVASCULAR: irregular rate and rhythm RESPIRATORY: No increased effort. No accessory muscle use. GASTROINTESTINAL: Abdomen soft, non-tender, nondistended. EXTREMITIES: Pain with palpation of left hip, no pain with other joints , neurovascularly intact, no lacerations over, compartments soft. NEUROLOGICAL: Awake and alert. Moves extremities. Normal speech. Data Data Last Documented VS Vital Signs Date Time Temp Pulse Resp B/P Pulse Ox O2 Delivery O2 Flow Rate FiO2 06/12/17 13:08 68 20 142/76 06/12/17 12:49 99 06/12/17 11:05 Room Air 06/12/17 10:58 98.9 Orders Hip, Uni(Ap&Lat) W Ap Pelvis (06/12/17 ) Electrocardiogram (06/12/17 12:43) Complete Blood Count With Diff (06/12/17 12:43) Comprehensive Metabolic Panel (06/12/17 12:43) Prothrombin Time / Inr (Pt) (06/12/17 12:43) Act Partial Throm Time (Ptt) (06/12/17 12:43) Urinalysis - C+S If Indicated (06/12/17 12:43) Type And Screen (06/12/17 12:43) Chest, Single Ap (06/12/17 12:43) Iv Access Insert/Monitor (06/12/17 12:43) Oximetry (06/12/17 12:43) Ecg Monitoring (06/12/17 12:43) Ondansetron Inj (Zofran Inj) (06/12/17 12:45) Sodium Chloride 0.9% Flush (Ns Flush) (06/12/17 12:45) Consult Orthopedic (06/12/17 ) Morphine Inj (Morphine Inj) (06/12/17 13:30) Ondansetron Inj (Zofran Inj) (06/12/17 13:30) (Hub Use Only)Inp Phy Cons/Ref (06/12/17 ) Admit Order (Ed Use Only) (06/12/17 13:52) Labs Laboratory Tests Test 06/12/17 12:00 White Blood Count 12.5 TH/MM3 Red Blood Count 5.17 MIL/MM3 Hemoglobin 13.8 GM/DL Hematocrit 42.6 % Mean Corpuscular Volume 82.5 FL Mean Corpuscular Hemoglobin 26.7 PG Mean Corpuscular Hemoglobin 32.4 % Concent Red Cell Distribution Width 14.7 % Platelet Count 503 TH/MM3 Mean Platelet Volume 7.5 FL Neutrophils (%) (Auto) 83.6 % Lymphocytes (%) (Auto) 9.0 % Monocytes (%) (Auto) 6.3 % Eosinophils (%) (Auto) 0.4 % Basophils (%) (Auto) 0.7 % Neutrophils # (Auto) 10.5 TH/MM3 Lymphocytes # (Auto) 1.1 TH/MM3 Monocytes # (Auto) 0.8 TH/MM3 Eosinophils # (Auto) 0.0 TH/MM3 Basophils # (Auto) 0.1 TH/MM3 CBC Comment DIFF FINAL Differential Comment Prothrombin Time 62.9 SEC Prothromb Time International 5.3 RATIO Ratio Activated Partial 53.9 SEC Thromboplast Time Sodium Level 140 MEQ/L Potassium Level 3.3 MEQ/L Chloride Level 102 MEQ/L Carbon Dioxide Level 27.7 MEQ/L Anion Gap 10 MEQ/L Blood Urea Nitrogen 8 MG/DL Creatinine 0.48 MG/DL Estimat Glomerular Filtration 123 ML/MIN Rate Random Glucose 83 MG/DL Calcium Level 9.2 MG/DL Total Bilirubin 0.5 MG/DL Aspartate Amino Transf 17 U/L (AST/SGOT) Alanine Aminotransferase 17 U/L (ALT/SGPT) Alkaline Phosphatase 148 U/L Total Protein 7.1 GM/DL Albumin 3.1 GM/DL Blood Type A POSITIVE Antibody Screen NEGATIVE MDM Medical Decision Making Medical Screen Exam Complete: Yes Emergency Medical Condition: Yes Medical Record Reviewed: Yes (past history confirmed) Interpretation(s) Last 24 hours Impressions Hip and Pelvis X-Ray 06/12/17 0000 Signed Impressions: Service Date/Time: May 12:19 - CONCLUSION: Suspected subcapital femoral neck fracture left hip. Haroldo Greer MD CBC & BMP Diagram 06/12/17 12:00 inr high at 5.3 Differential Diagnosis Fracture, strain, sprain Narrative Course We'll check x-ray and reevaluate, pain medication declined X-ray with fracture will add on blood work and patient updated, will discuss with orthopedic physician and admit. Pain medication again declined and patient does not know what she can have with her allergy to codeine pain now states needs pain medication, will dose with small dose of morphine given records state she has had this in the past and if she does okay with that she can get more doses Physician Communication Physician Communication dr barnes states he will order vitamin k and agrees to admit Diagnosis Primary Impression: Hip fracture Qualified Code: S72.002A - Hip fracture, left, closed, initial encounter Additional Impression: Supratherapeutic INR Admitting Information Admitting Physician Requests: Admit Heather Solano MD Jun 12, 2017 12:51
[2017-06-12 13:03] LABS: AUTOMATED NEUTROPHIL # 10.5 TH/MM3 (1.8-7.7); BASOPHIL # 0.1 TH/MM3 (0-0.2); BASOPHIL % 0.7 % (0.0-2.0); EOSINOPHIL % 0.4 % (0.0-4.0); HEMATOCRIT 42.6 % (35.0-46.0); HEMO FLAGS DIFF FINAL; LYMPHOCYTE # 1.1 TH/MM3 (1.0-4.8); MEAN CELL VOLUME 82.5 FL (80.0-100.0); MEAN CORPUSCULAR HEMOGLOBIN 26.7 PG (27.0-34.0); MEAN CORPUSCULAR HGB CONC 32.4 % (32.0-36.0); MONO % 6.3 % (0.0-8.0); NEUT % 83.6 % (16.0-70.0); PLATELET COUNT 503 TH/MM3 (150-450); RED BLOOD COUNT 5.17 MIL/MM3 (4.00-5.30); RED CELL DISTRIBUTION WIDTH 14.7 % (11.6-17.2); WHITE BLOOD COUNT 12.5 TH/MM3 (4.0-11.0)
[2017-06-12 13:16] LABS: APTT (PATIENT) 53.9 SEC (24.3-30.1); INTERNATIONAL NORMALIZED RATIO 5.3 RATIO; PROTHROMBIN TIME - PATIENT 62.9 SEC (9.8-11.6)
[2017-06-12 13:22] LABS: ANION GAP 10 MEQ/L (5-15); AST (GOT) 17 U/L (15-37); BICARBONATE 27.7 MEQ/L (21.0-32.0); BLOOD UREA NITROGEN 8 MG/DL (7-18); CHLORIDE 102 MEQ/L (98-107); GLOMERULAR FILTRATION RATE 123 ML/MIN (>89); POTASSIUM 3.3 MEQ/L (3.5-5.1); SODIUM (NA) 140 MEQ/L (136-145)
[2017-06-12 13:25] LABS: ALKALINE PHOSPHATASE 148 U/L (45-117); ALT (GPT) 17 U/L (10-53); TOTAL BILIRUBIN ADULT 0.5 MG/DL (0.2-1.0)
[2017-06-12] MEDS ORDERED: ONDANSETRON HCL 4 MG/2 ML VIAL IV PUSH ONE (13:30)
[2017-06-12] MEDS ORDERED: MORPHINE SULFATE 8 MG/ML INJ IV PUSH ONE (13:30)
[2017-06-12] MEDS ORDERED: BISACODYL 10 MG SUPP RECTAL PRN (14:00)
[2017-06-12] MEDS ORDERED: SODIUM CHLORIDE 0.9% FLUSH 10 ML FLUSH IV FLUSH PRN (14:00)
[2017-06-12] MEDS ORDERED: NALOXONE HCL 0.4 MG/ML AMP IV PRN (14:00)
[2017-06-12] MEDS ORDERED: ONDANSETRON HCL 4 MG/2 ML VIAL IVP PRN (14:00)
[2017-06-12] MEDS ORDERED: HYDROmorphone HCL PF 1 MG/ML VIAL IV PRN (14:00)
--- NOTE | 2017-06-12 14:04 | RADRPT ---
EXAM DATE/TIME: 06/12/2017 12:48 [facility] COMPARISON: Prior study 05/01/17. INDICATIONS : Evaluate for pneumonia, pneumothorax or communicable disease. Pre op for left hip surgery. MEDICAL HISTORY : Hypertension. SURGICAL HISTORY : None. ENCOUNTER: Initial ACUITY: 1 day PAIN SCORE: 0/10 LOCATION: Bilateral chest FINDINGS: A single view of the chest demonstrates the heart and mediastinum are unremarkable. There is marked atherosclerotic disease. The lungs are grossly clear. There is biapical pleural parenchymal thicken ing left greater than right. Bones are unremarkable. CONCLUSION: Biapical pleural parenchymal thickening. The lungs are clear. Stable exam. Giovanny Dalton MD on June 12, 2017 at 13:56 Board Certified Radiologist. This report was verified electronically.
[2017-06-12] MEDS: SODIUM CHLOR 0.9% 1000 ML INJ 1,000 ML IV SCH ×2 (15:53→21:57)
[2017-06-12] MEDS ORDERED: PHYTONADIONE 5 MG TAB PO ONE (16:00)
--- NOTE | 2017-06-12 16:05 | HHI.HP ---
[facility] Service [facility] Primary Care Physician Brittaney Peter MD Admission Diagnosis hip fracture Diagnoses: (1) Hip fracture Chief Complaint: Left hip pain post fall Travel History International Travel<30 Days: No Contact w/Intl Traveler <30 Da: No Traveled to Known Affected Are: No History of Present Illness Written by Nasrin Nicole, acting as scribe for Dr. Gao on 06/12/17 at 15:46. Ms. Keyes is an 87-year-old female patient with a known history of a atrial fibrillation on Coumadin, hypertension, dyslipidemia, GERD and history of multiple falls who presented to the ED by EMS transport after slipping out of her bed at the [facility] and sustaining a left femoral neck fracture of the hip. Patient seen and examined in room, alert and oriented x 3. Patient denies any loss of consciousness or hitting her head. States she has been living at an assisted living for some time now. Denies any recent illness including fever, chills, cough, shortness of breath, abdominal pain, nausea, vomiting, diarrhea or dysuria. Overall patient is a relatively poor historian and disengaged in conversation. Much of the medical history was obtained by medical records. Review of Systems Musculoskeletal: COMPLAINS OF: Joint pain (hip pain) Except as stated in HPI: all other systems reviewed are Neg Past Family Social History Past Medical History Hypertension Atrial fibrillation on Coumadin Arthritis GERD Dyslipidemia TB history Bladder incontinence Past Surgical History Left knee arthroplasty Bladder stimulator insertion Reported Medications Active Reported Calcium 600 with Vitamin D (Calcium Carbonate-Cholecalciferol) 600-400 mg-Unit Tab 1 Tab PO DAILY Diltiazem CD 24 HR 300 Mg Caper 300 Mg PO DAILY Pantoprazole (Pantoprazole Sodium) 40 Mg Tab 40 Mg PO DAILY Warfarin 2.5 Mg Tab 3 Mg PO DAILY Allergies: Coded Allergies: Codeine (Verified Allergy, Severe, Rash, 06/12/17) Nifedipine (Verified Allergy, Severe, 01/03/05: PT TAKES CARDIZEM CD AT HOME W/O ADVERSE EFFECT, 06/12/17) REACTION TO ADALAT 2/10/05: PT TAKES CARIDZEM CD AT HOME WITHOUT ADVERSE EFFECT Actonel (Verified Allergy, Intermediate, 06/12/17) Fosamax (Verified Allergy, Intermediate, 06/12/17) Oxybutynin (Verified Allergy, Intermediate, 06/12/17) Procardia (Verified Allergy, Intermediate, 06/12/17) MRI PRECAUTION (Verified Adverse Reaction, Intermediate, Bladder stimulator. Brain scans only in PO. 03/12/17 lrs, 06/12/17) *MDRO Multi-Drug Resistant Organism (Verified Adverse Reaction, Unknown, MRSA, 06/12/17) MRSA PCR (nares) POSITIVE - 03/10/17 Active Ordered Medications Current Medications Medications (Trade) Dose Ordered Sig/Gauri Route Start Time Stop Time Status Last Admin (NS Flush) 2 ml UNSCH PRN IVF 06/12/17 12:45 Phytonadione 5 mg 5 mg ONCE ONCE PO 06/12/17 16:00 06/12/17 16:01 (NS 1000 ml Inj) 1,000 ml @ 100 mls/hr Q10H IV 06/12/17 15:30 (NS Flush) 2 ml BID IV FLUSH 06/12/17 21:00 (Zofran Inj) 4 mg Q6H PRN IVP 06/12/17 14:00 (Dilaudid Pf Inj) 0.5 mg Q3H PRN IV 06/12/17 14:00 UNV (Dilaudid Pf Inj) 1 mg Q3H PRN IV 06/12/17 14:00 UNV (Narcan Inj) 0.4 mg UNSCH PRN IV 06/12/17 14:00 (Hilda-Colace) 1 tab BID PO 06/12/17 21:00 (Milk Of Magnesia Liq) 30 ml Q12H PRN PO 06/12/17 14:00 (Senokot) 17.2 mg Q12H PRN PO 06/12/17 14:00 (Dulcolax Supp) 10 mg DAILY PRN RECTAL 06/12/17 14:00 (Lactulose Liq) 30 ml DAILY PRN PO 06/12/17 14:00 Family History Patient denies any significant medical history on both mother or father's side including cardiovascular disease, lung disease or Alzheimer's. Social History Patient denies any current tobacco use, does admit to quitting smoking many years ago. Denies any alcohol consumption. Denies any illicit drug use. Physical Exam Vital Signs Vital Signs Date Time Temp Pulse Resp B/P Pulse Ox O2 Delivery O2 Flow Rate FiO2 06/12/17 13:08 68 20 142/76 06/12/17 12:49 99 06/12/17 11:05 Room Air 06/12/17 10:58 98.9 70 19 164/91 95 Physical Exam GENERAL: Well-nourished, well-developed patient, lying in bed comfortably in no apparent distress. SKIN: No rashes. Warm and dry. HEENT: Atraumatic. Normocephalic. Pupils equal round and reactive. Extraocular motions intact. No scleral icterus. No injection or drainage. Nose without bleeding. Airway patent. NECK: Trachea midline. No JVD. Supple. CARDIOVASCULAR: Irregularly irregular rhythm. No murmur appreciated. RESPIRATORY: Clear to auscultation. Breath sounds equal bilaterally. No wheezes , rales, or rhonchi. GASTROINTESTINAL: Abdomen soft, non-tender, nondistended. No guarding. MUSCULOSKELETAL: Extremities without clubbing, cyanosis, or edema. Right hip tenderness. NEUROLOGICAL: Awake and alert. Cranial nerves II through XII intact. Motor and sensory grossly within normal limits. Four out of 5 muscle strength in all muscle groups. Normal speech. Laboratory Laboratory Tests Test 06/12/17 12:00 White Blood Count 12.5 Red Blood Count 5.17 Hemoglobin 13.8 Hematocrit 42.6 Mean Corpuscular Volume 82.5 Mean Corpuscular Hemoglobin 26.7 Mean Corpuscular Hemoglobin 32.4 Concent Red Cell Distribution Width 14.7 Platelet Count 503 Mean Platelet Volume 7.5 Neutrophils (%) (Auto) 83.6 Lymphocytes (%) (Auto) 9.0 Monocytes (%) (Auto) 6.3 Eosinophils (%) (Auto) 0.4 Basophils (%) (Auto) 0.7 Neutrophils # (Auto) 10.5 Lymphocytes # (Auto) 1.1 Monocytes # (Auto) 0.8 Eosinophils # (Auto) 0.0 Basophils # (Auto) 0.1 CBC Comment DIFF FINAL Differential Comment Prothrombin Time 62.9 Prothromb Time International 5.3 Ratio Activated Partial 53.9 Thromboplast Time Sodium Level 140 Potassium Level 3.3 Chloride Level 102 Carbon Dioxide Level 27.7 Anion Gap 10 Blood Urea Nitrogen 8 Creatinine 0.48 Estimat Glomerular Filtration 123 Rate Random Glucose 83 Calcium Level 9.2 Total Bilirubin 0.5 Aspartate Amino Transf 17 (AST/SGOT) Alanine Aminotransferase 17 (ALT/SGPT) Alkaline Phosphatase 148 Total Protein 7.1 Albumin 3.1 Blood Type A POSITIVE Antibody Screen NEGATIVE Result Diagram: 06/12/17 1200 06/12/17 1200 Imaging Last Impressions Chest X-Ray 06/12/17 1243 Signed Impressions: Service Date/Time: May 12:48 - CONCLUSION: Biapical pleural parenchymal thickening. The lungs are clear. Stable exam. Giovanny Dalton MD Hip and Pelvis X-Ray 06/12/17 0000 Signed Impressions: Service Date/Time: May 12:19 - CONCLUSION: Suspected subcapital femoral neck fracture left hip. Haroldo Greer MD Assessment and Plan Assessment and Plan Ms. Keyes is an 87-year-old female patient with a known history of a atrial fibrillation on Coumadin, hypertension, dyslipidemia and GERD who presented to the ED after slipping out of her bed at the [facility] and sustaining a left femoral neck fracture of the hip. Left femoral neck fracture of hip - Hip/pelvis x-ray reviewed showing suspected subcapital femoral neck fracture of the left hip. - Consult Orthopedic surgery, appreciate input. - Control pain. Dilaudid 0.5/1 mg IV q3h PRN per pain scale. - Continue IVF at this time, NS at 100 ml/hr. Encourage PO intake. Atrial fibrillation, chronic on Coumadin Supratherapeutic INR - Patient on Coumadin at home, INR on presentation 5.3. Phytonadione 5 mg PO x 1. 2 units FFP ordered in ED. - Monitor INR. Follow closely. Leukocytosis with elevated bands suspect secondary to stress response: - WBC 12.5 on presentation. Neutrophils 83.6. - No signs of infection. Patient afebrile. Monitor. Recheck CBC in am. Follow. Hypokalemia: Potassium 3.3 on admission. KCL eff 25 meq PO x 1. Recheck BMP in am. Follow. DVT Prophylaxis: SCDs. Chemical prophylaxis depending on orthopedic plans regarding surgical intervention. This note was transcribed by scribe [Nasrin Nicole]. I, Dr. Calos Gao personally performed the history, physical exam, and medical decision making; and confirmed the accuracy of the information in the transcribed note. Authenticated by Dr. Calos Gao on 06/12/17 at 18:39. Physician Certification 2 Midnight Certification Type: Admission for Inpatient Services Order for Inpatient Services The services are ordered in accordance with Medicare regulations or non- Medicare payer requirements, as applicable. In the case of services not specified as inpatient-only, they are appropriately provided as inpatient services in accordance with the 2-midnight benchmark. Estimated LOS (days): 3 days is the estimated time the patient will need to remain in the hospital, assuming treatment plan goals are met and no additional complications. Post-Hospital Plan: Not yet determined Problem Qualifiers (1) Hip fracture: Qualified Code: S72.002A - Hip fracture, left, closed, initial encounter Nasrin Nicole Jun 12, 2017 16:05 Calos Gao MD Jun 12, 2017 18:39
[2017-06-12] MEDS ORDERED: POTASSIUM CHLORIDE 25 MEQ EFFERVESCENT TAB PO ONE (16:15)
[2017-06-12] MEDS ORDERED: SODIUM CHLOR 0.9% 250 ML INJ 250 ML IV ONE (16:30)
[2017-06-12] MEDS: SODIUM CHLORIDE 0.9% FLUSH 10 ML FLUSH IV FLUSH SCH (21:00)
[2017-06-12] MEDS: DOCUSATE SODIUM 50 MG/SENNA 8.6 MG TAB PO SCH (21:56)
[2017-06-12] MEDS: HYDROmorphone HCL PF 1 MG/ML VIAL IV PRN (22:43)
[2017-06-13] VITALS (8 sets, daily range): BP systolic 134–149; BP diastolic 62–70; PULSE 64–84; RESP 16–24; TEMP 96–99.5; O2SAT 92–94
[2017-06-13] MEDS ORDERED: CHLORHEXIDINE GLUCONATE 2 % 1 PACK (2 CLOTHS) TOPICAL PRN (02:00)
[2017-06-13] MEDS ORDERED: SODIUM CHLORID 0.9% 500 ML IV PRN (02:00)
[2017-06-13] MEDS ORDERED: INSULIN HUMAN REGULAR 1,000 UNITS/10 ML VIAL SQ PRN (02:00)
[2017-06-13] MEDS ORDERED: METOPROLOL TARTRATE 25 MG TAB PO PRN (02:00)
[2017-06-13] MEDS ORDERED: POVIDONE IODINE 5% (ANTISEPSIS KIT) 4 APPLICATIONS EACH NARE PRN (02:00)
[2017-06-13] MEDS ORDERED: LACTATED RINGER'S 1000 ML IV PRN (02:00)
[2017-06-13 05:34] LABS: AUTOMATED NEUTROPHIL # 10.9 TH/MM3 (1.8-7.7); BASOPHIL # 0.1 TH/MM3 (0-0.2); BASOPHIL % 1.1 % (0.0-2.0); EOSINOPHIL # 0.4 TH/MM3 (0-0.4); EOSINOPHIL % 2.7 % (0.0-4.0); HEMATOCRIT 39.3 % (35.0-46.0); HEMO FLAGS DIFF FINAL; LYMPH % 8.9 % (9.0-44.0); LYMPHOCYTE # 1.2 TH/MM3 (1.0-4.8); MEAN CELL VOLUME 82.5 FL (80.0-100.0); MEAN CORPUSCULAR HEMOGLOBIN 27.6 PG (27.0-34.0); MEAN CORPUSCULAR HGB CONC 33.4 % (32.0-36.0); MONO % 4.9 % (0.0-8.0); NEUT % 82.4 % (16.0-70.0); PLATELET COUNT 426 TH/MM3 (150-450); RED BLOOD COUNT 4.77 MIL/MM3 (4.00-5.30); RED CELL DISTRIBUTION WIDTH 14.7 % (11.6-17.2); WHITE BLOOD COUNT 13.2 TH/MM3 (4.0-11.0)
[2017-06-13 05:46] LABS: INTERNATIONAL NORMALIZED RATIO 1.6 RATIO; PROTHROMBIN TIME - PATIENT 17.7 SEC (9.8-11.6)
[2017-06-13 06:03] LABS: POTASSIUM 3.7 MEQ/L (3.5-5.1)
--- NOTE | 2017-06-13 06:40 | PD.ORT.PN ---
Subjective Subjective Remarks s/p fall at home. reports left hip pain. 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 Objective Vitals Vital Signs Date Time Temp Pulse Resp B/P Pulse Ox O2 Delivery O2 Flow Rate FiO2 06/13/17 04:05 99.5 68 16 136/62 94 06/13/17 03:30 98.6 68 16 134/62 94 06/13/17 00:10 98.0 73 16 148/67 92 06/13/17 00:00 98.5 64 16 134/62 94 06/12/17 23:30 98.5 64 16 134/62 94 06/12/17 20:30 97.8 62 16 132/60 94 06/12/17 20:00 97.8 62 16 132/60 94 06/12/17 17:15 Room Air 06/12/17 16:47 98.4 60 20 153/66 99 06/12/17 16:34 97.9 59 16 144/64 92 06/12/17 13:08 68 20 142/76 06/12/17 12:49 99 06/12/17 11:05 Room Air 06/12/17 10:58 98.9 70 19 164/91 95 I/O 06/12/17 06/12/17 06/12/17 06/13/17 06/13/17 06/13/17 07:00 15:00 23:00 07:00 15:00 23:00 Intake Total 240 ml Balance 240 ml Intake Oral 240 ml # Voids 1 # Bowel Movements 0 Result Diagram: 06/13/17 0454 06/13/17 0454 Other Results Laboratory Tests Test 06/12/17 06/13/17 12:00 04:54 Prothrombin Time 62.9 SEC 17.7 SEC (9.8-11.6) (9.8-11.6) Prothromb Time International 5.3 RATIO 1.6 RATIO Ratio Imaging Last 24 hours Impressions Chest X-Ray 06/12/17 1243 Signed Impressions: Service Date/Time: May 12:48 - CONCLUSION: Biapical pleural parenchymal thickening. The lungs are clear. Stable exam. Giovanny Dalton MD Objective Remarks LLE: knees in flexion contracture. no sensation distally. Assessment & Plan Assessment and Plan 1) Left Femoral Neck Fx -npo -consents -surgery today for perc pinning left hip Rd Egan Jun 13, 2017 06:40
[2017-06-13] MEDS: DOCUSATE SODIUM 50 MG/SENNA 8.6 MG TAB PO SCH ×2 (08:28→20:21)
[2017-06-13] MEDS: SODIUM CHLORIDE 0.9% FLUSH 10 ML FLUSH IV FLUSH SCH ×2 (08:30→20:21)
[2017-06-13] MEDS ORDERED: GENTAMICIN SULFATE 80 MG/2 ML VIAL ONE (09:21)
[2017-06-13] MEDS ORDERED: VANCOMYCIN HCL 1000 MG VIAL ONE (09:21)
[2017-06-13] MEDS ORDERED: ceFAZolin INJ 1,000 MG VIAL ONE (09:21)
[2017-06-13] MEDS ORDERED: ERGO1CAP30 PO (10:40)
[2017-06-13] MEDS ORDERED: NORC5TAB PO (10:40)
[2017-06-13] MEDS ORDERED: ceFAZolin INJ 1,000 MG VIAL IV ONE (11:02)
[2017-06-13] MEDS ORDERED: VANCOMYCIN HCL 1000 MG VIAL OTHER ONE (11:03)
[2017-06-13] MEDS ORDERED: BUPIVACAINE HCL PF 0.5% 30 ML VIAL INFIL ONE (11:45)
[2017-06-13] MEDS ORDERED: ERGOCALCIFEROL (VIT D2) 50,000 UNIT CAP PO ONE (12:00)
[2017-06-13] MEDS ORDERED: MORPHINE SULFATE 4 MG/ML INJ IV PUSH PRN (12:00)
[2017-06-13] MEDS ORDERED: Post-op Orders (for Pharmacy) MISC XX ONE (12:00)
[2017-06-13] MEDS ORDERED: SODIUM CHLORIDE 0.9% FLUSH 5 ML FLUSH IVF PRN (12:00)
[2017-06-13] MEDS ORDERED: ETOMIDATE 20 MG/10 ML VIAL IV PUSH ONE (12:00)
[2017-06-13] MEDS ORDERED: ONDANSETRON HCL 4 MG/2 ML VIAL IV PUSH ONE (12:00)
[2017-06-13] MEDS ORDERED: DO NOT ADM ANY ANTICOAGULANT DRUGS PRN (12:10)
[2017-06-13] MEDS ORDERED: MIDAZOLAM HCL 2 MG/2 ML VIAL ONE (12:13)
--- NOTE | 2017-06-13 12:20 | MB ---
cc: LEX FLYNN DATE OF CONSULTATION: 06/13/2017 REASON FOR CONSULTATION Left femoral neck fracture. HISTORY OF PRESENT ILLNESS Wilfredo is an 87-year-old female who has a history of atrial fibrillation, hypertension, high cholesterol, reflux and multiple falls. She has a history of lower extremity weakness. She had a fall at an assisted living facility. She was brought to the emergency room where x-rays revealed a left femoral neck fracture. The patient does not give a clear history of why she fell. She currently has minimal pain. PAST MEDICAL HISTORY ILLNESSES 1. Hypertension. 2. Atrial fibrillation. 3. Reflux. 4. Bladder incontinence. SURGERIES 1. Left knee surgery. 2. Bladder stimulator. MEDICATIONS 1. Calcium. 2. Diltiazem. 3. Pantoprazole. 4. Coumadin. ALLERGIES 1. CODEINE. 2. NIFEDAPINE. 3. ACTONEL. 4. FOSAMAX. 5. OXYBUTYNIN. 6. PROCARDIA. FAMILY HISTORY Noncontributory. SOCIAL HISTORY The patient denies alcohol, tobacco or drug use. REVIEW OF SYSTEMS The patient denies headache, visual changes, neck pain, chest pain, shortness of breath, abdominal pain, nausea, vomiting or recent weight loss. PHYSICAL EXAMINATION GENERAL: The patient is a pleasant 87-year-old female who is awake. She is thin but appears well-developed, well-nourished. VITAL SIGNS: Temperature 93.3, pulse 83, respirations 24, blood pressure 142/64, O2 sat 92% on room air. HEAD: The patient is normocephalic. Pupils are equal. NECK: Soft, nontender. Trachea is midline. ABDOMEN: Soft, nontender, nondistended. EXTREMITIES: Examination of bilateral upper extremities reveals no obvious pain or deformity with shoulder, elbow or wrist motion. She has good capillary refill in all of her fingers. Skin is intact. Radial pulses are palpable. Examination of right leg reveals no obvious pain or deformity with hip, knee or ankle motion. Skin is intact. Dorsalis pedis pulse is palpable. Examination of left leg reveals minimal discomfort with gentle hip motion. She has no obvious pain or deformity with knee or ankle motion. Skin is intact. Dorsalis pedis pulse is palpable. X-RAYS X-rays of the left hip were reviewed. X-rays reveal a minimally displaced left femoral neck fracture. IMPRESSION 1. Atrial fibrillation. 2. Anticoagulation with Coumadin 3. Left femoral neck fracture. PLAN I discussed with the patient treatment options including pinning of the hip. Without surgery the fracture will likely displace which would result in a need for hip replacement surgery in the future. The risks of surgery include bleeding, infection, injuries to arteries, nerves and blood vessels, nonunion, malunion, avascular necrosis and painful hardware, as well as medical complications associated with anesthesia. All questions were answered. I will plan on surgery today. A mid-level provider in my office, nurse practitioner or PA, may see this patient on a follow-up basis and continue to implement the objective of this plan including: Starting or adjusting medications, injections of muscle, tendon, bursa or joints, cast application, orthotic or brace application, physical therapy, further radiographic studies including x-ray, MRI, CT, ultrasounds or bone scan, vascular studies, neurologic studies, or other specialist consultations, and proceeding with surgical management as appropriate. MD ELISA Molina/NOLAN /11:59 AM /12:14 PM
[2017-06-13] MEDS ORDERED: hydrALAZINE HCL 20 MG/ML VIAL ONE (12:27)
[2017-06-13] MEDS ORDERED: *morphine SULFATE 8 MG/ML PERIprocedure ONLY ONE (12:54)
[2017-06-13] MEDS ORDERED: hydrALAZINE HCL 20 MG/ML VIAL IV PUSH ONE (13:00)
--- NOTE | 2017-06-13 14:46 | RADRPT ---
EXAM DATE/TIME: 06/13/2017 11:40 [facility] COMPARISON: HIP LEFT (AP&LAT 2/3VWS) W AP PELVIS, June 12, 2017, 12:19. INDICATIONS : Screw placement left hip. MEDICAL HISTORY : Subcapital femoral neck fracture left hip.Hypertension. Gastroesophageal reflux disease. Arthritis. H yperlipidemia.Pneumonia. Tuberculosis. A-fib. SURGICAL HISTORY : Total knee replacement, right. ENCOUNTER: Subsequent ACUITY: 2 days PAIN SCORE: Non-responsive. LOCATION: Left Hip FINDINGS: 2 spot fluoroscopic images obtained in the operating room during a procedure demonstrates 3 partially threaded cannulated screws traversing the left femoral neck and terminating in the femoral head cros sing the subcapital femoral neck fracture. CONCLUSION: Expected findings following ORIF of left subcapital femoral neck fracture. Sin Billy MD on June 13, 2017 at 14:43 Board Certified Radiologist. This report was verified electronically.
--- NOTE | 2017-06-13 14:57 | EKG ---
Date Performed: 06/12/2017 Time Performed: 13:13:48 PTAGE: 87 years EKG: ATRIAL FIBRILLATION NONSPECIFIC ST & T-WAVE ABNORMALITY ABNORMAL ECG PREVIOUS TRACING : 05/01/2017 00.20 Compared to prior tracing no significant change DOCTOR: Jeffy Orosco Interpretating Date/Time 06/13/2017 14:54:26
--- NOTE | 2017-06-13 15:33 | HHI.PR ---
Subjective Remarks No complaints today. Seen post op. No nausea. Pain controlled. Not out of bed yet. Baseline functional status is standing and pivoting, without walking. Objective Vital Signs Date Time Temp Pulse Resp B/P Pulse Ox O2 Delivery O2 Flow Rate FiO2 06/13/17 14:45 96.0 84 18 149/66 94 06/13/17 13:47 Nasal Cannula 3.00 06/13/17 13:15 94 24 129/60 95 Nasal Cannula 3 06/13/17 13:00 94 23 136/63 95 Nasal Cannula 3 06/13/17 12:45 90 25 162/67 98 Nasal Cannula 4 06/13/17 12:30 78 22 192/84 95 Nasal Cannula 4 06/13/17 12:15 81 20 182/79 93 Nasal Cannula 4 06/13/17 12:06 98.6 82 24 179/87 92 Nasal Cannula 4 06/13/17 08:00 99.3 83 24 142/64 92 06/13/17 07:26 Room Air 06/13/17 04:05 99.5 68 16 136/62 94 06/13/17 03:30 98.6 68 16 134/62 94 06/13/17 00:10 98.0 73 16 148/67 92 06/13/17 00:00 98.5 64 16 134/62 94 06/12/17 23:30 98.5 64 16 134/62 94 06/12/17 20:30 97.8 62 16 132/60 94 06/12/17 20:00 97.8 62 16 132/60 94 06/12/17 17:15 Room Air 06/12/17 16:47 98.4 60 20 153/66 99 06/12/17 16:34 97.9 59 16 144/64 92 I/O 06/12/17 06/12/17 06/12/17 06/13/17 06/13/17 06/13/17 06:59 14:59 22:59 06:59 14:59 22:59 Intake Total 240 ml 350 ml Output Total 350 ml Balance 240 ml 0 ml Intake Oral 240 ml Other 350 ml Output Urine Total 300 ml Estimated Blood Loss 50 ml # Voids 1 3 # Bowel Movements 0 0 Result Diagram: 06/13/1745306/13/17453 Objective Remarks GENERAL: NAD, A&Ox2 (post op anesthesia) SKIN: Warm and dry. HEAD: Normocephalic. EYES: No scleral icterus. No injection or drainage. NECK: Supple, trachea midline. No JVD or lymphadenopathy. CARDIOVASCULAR: Regular rate and rhythm without murmurs, gallops, or rubs. RESPIRATORY: Breath sounds equal bilaterally. No accessory muscle use. GASTROINTESTINAL: Abdomen soft, non-tender, nondistended. MUSCULOSKELETAL: No cyanosis, or edema. BACK: Nontender without obvious deformity. No CVA tenderness. A/P Problem List: (1) Hip fracture ICD Code: S72.009A (2) Afib ICD Code: I48.91 (3) Hypertension ICD Code: I10 Assessment and Plan Assessment and Plan 87 year old female status post left hip fracture. Left femoral neck fracture of hip Post op today Doing well Continue pain treatments Ortho following PT Atrial fibrillation, chronic on Coumadin Supratherapeutic INR Resume coumadin tomorrow Follow INR Hypokalemia May have been transient Follow potassium Replace if needed DVT Prophylaxis Plan to resume coumadin INR in AM Lovenox bridge if needed (tomorrow) Problem Qualifiers (1) Hip fracture: Qualified Code: S72.002A - Hip fracture, left, closed, initial encounter Calos Gao MD Jun 13, 2017 3:33 pm
[2017-06-13] MEDS: SODIUM CHLOR 0.9% 1000 ML INJ 1,000 ML IV SCH (20:22)
[2017-06-13] MEDS: SODIUM CHLORIDE 0.9% FLUSH 5 ML FLUSH IVF SCH (20:22)
[2017-06-13] MEDS: ENOXAPARIN SODIUM 30 MG/0.3 ML SYRINGE SQ SCH (23:59)
[2017-06-14] VITALS (8 sets, daily range): BP systolic 123–158; BP diastolic 65–70; PULSE 80–95; RESP 16–18; TEMP 95.5–100.4; O2SAT 92–98
[2017-06-14] MEDS: SODIUM CHLOR 0.9% 1000 ML INJ 1,000 ML IV SCH ×2 (05:36→07:39)
[2017-06-14] MEDS: ACETAMINOPHEN/HYDROcodone 325 MG/5 MG TAB PO PRN ×3 (05:43→22:19)
--- NOTE | 2017-06-14 06:51 | PD.ORT.PN ---
Subjective Subjective Remarks s/p Left Hip perc pinning - POD 1 -doing well. reports slight pain but comfortable Objective Vitals Vital Signs Date Time Temp Pulse Resp B/P Pulse Ox O2 Delivery O2 Flow Rate FiO2 06/14/17 04:05 98.4 84 16 143/67 97 06/14/17 00:05 100.4 80 16 146/65 96 06/13/17 20:23 Nasal Cannula 3.00 06/13/17 20:05 98.4 77 16 142/70 93 06/13/17 16:50 3.00 06/13/17 16:00 98.6 73 22 145/69 92 06/13/17 14:45 96.0 84 18 149/66 94 06/13/17 13:47 Nasal Cannula 3.00 06/13/17 13:15 94 24 129/60 95 Nasal Cannula 3 06/13/17 13:00 94 23 136/63 95 Nasal Cannula 3 06/13/17 12:45 90 25 162/67 98 Nasal Cannula 4 06/13/17 12:30 78 22 192/84 95 Nasal Cannula 4 06/13/17 12:15 81 20 182/79 93 Nasal Cannula 4 06/13/17 12:06 98.6 82 24 179/87 92 Nasal Cannula 4 06/13/17 08:00 99.3 83 24 142/64 92 06/13/17 07:26 Room Air I/O 06/13/17 06/13/17 06/13/17 06/14/17 06/14/17 06/14/17 07:00 15:00 23:00 07:00 15:00 23:00 Intake Total 455 ml 872 ml 868 ml Output Total 350 ml 250 ml Balance 105 ml 622 ml 868 ml Intake Oral 120 ml IV Total 105 ml 752 ml 868 ml Other 350 ml Output Urine Total 300 ml 250 ml Estimated Blood Loss 50 ml # Voids 3 # Bowel Movements 0 0 Result Diagram: 06/13/17 0454 06/13/17 0454 Imaging Last 24 hours Impressions Chest X-Ray 06/12/17 1243 Signed Impressions: Service Date/Time: May 12:48 - CONCLUSION: Biapical pleural parenchymal thickening. The lungs are clear. Stable exam. Giovanny Dalton MD Objective Remarks LLE: knees flexed. no sensation distally. dressing clean and dry. intact Assessment & Plan Assessment and Plan 1) Left Femoral Neck Fx s/p perc pinning - POD 1 -TTWB -daily dressing changes POD 2 -CM for rehab placement -plan for DC to rehab once arrangements made -f/u with Rafael or [facility] in [address] Egan Jun 14, 2017 06:51
[2017-06-14 07:52] LABS: HEMATOCRIT 38.1 % (35.0-46.0); INTERNATIONAL NORMALIZED RATIO 1.7 RATIO; MEAN CELL VOLUME 83.5 FL (80.0-100.0); MEAN CORPUSCULAR HEMOGLOBIN 27.5 PG (27.0-34.0); MEAN CORPUSCULAR HGB CONC 32.9 % (32.0-36.0); PLATELET COUNT 369 TH/MM3 (150-450); PROTHROMBIN TIME - PATIENT 19.4 SEC (9.8-11.6); RED BLOOD COUNT 4.56 MIL/MM3 (4.00-5.30); REVIEW FLAG FINAL; WHITE BLOOD COUNT 13.3 TH/MM3 (4.0-11.0)
[2017-06-14 07:58] LABS: BICARBONATE 20.8 MEQ/L (21.0-32.0); POTASSIUM 3.4 MEQ/L (3.5-5.1)
[2017-06-14] MEDS ORDERED: WARFARIN SOD 2.5 MG TAB PO SCH (09:00)
[2017-06-14] MEDS: SODIUM CHLORIDE 0.9% FLUSH 10 ML FLUSH IV FLUSH SCH ×2 (10:36→20:45)
[2017-06-14] MEDS: SODIUM CHLORIDE 0.9% FLUSH 5 ML FLUSH IVF SCH ×2 (10:36→20:45)
[2017-06-14] MEDS: LACTULOSE SYRUP 20 GM/30 ML CUP PO PRN (10:37)
[2017-06-14] MEDS: MAGNESIUM HYDROXIDE SUSP 30 ML CUP PO PRN (10:37)
[2017-06-14] MEDS: CHOLECALCIFEROL (VIT D3) 5000 UNIT CAP PO SCH (10:37)
[2017-06-14] MEDS: DOCUSATE SODIUM 50 MG/SENNA 8.6 MG TAB PO SCH ×2 (10:37→20:45)
[2017-06-14] MEDS: SENNOSIDES 8.6 MG TAB PO PRN (10:37)
[2017-06-14] MEDS ORDERED: POTASSIUM CHLORIDE 10 MEQ CONTROLLED RELEASE TAB PO ONE (11:45)
--- NOTE | 2017-06-14 12:11 | HHI.PR ---
Subjective Remarks Follow-up orthopedic injury. Complaining of surgical pain. Out of bed to chair. Requesting for a regular diet. Seen with daughter. Discussed with RN Objective Vitals Vital Signs Date Time Temp Pulse Resp B/P Pulse Ox O2 Delivery O2 Flow Rate FiO2 06/14/17 10:11 97 21 06/14/17 08:00 97.8 81 17 146/66 98 06/14/17 04:05 98.4 84 16 143/67 97 06/14/17 00:05 100.4 80 16 146/65 96 06/13/17 20:23 Nasal Cannula 3.00 06/13/17 20:05 98.4 77 16 142/70 93 06/13/17 16:50 3.00 06/13/17 16:00 98.6 73 22 145/69 92 06/13/17 14:45 96.0 84 18 149/66 94 06/13/17 13:47 Nasal Cannula 3.00 06/13/17 13:15 94 24 129/60 95 Nasal Cannula 3 06/13/17 13:00 94 23 136/63 95 Nasal Cannula 3 06/13/17 12:45 90 25 162/67 98 Nasal Cannula 4 06/13/17 12:30 78 22 192/84 95 Nasal Cannula 4 06/13/17 12:15 81 20 182/79 93 Nasal Cannula 4 I/O 06/13/17 06/13/17 06/13/17 06/14/17 06/14/17 06/14/17 07:00 15:00 23:00 07:00 15:00 23:00 Intake Total 455 ml 872 ml 988 ml Output Total 350 ml 250 ml 300 ml Balance 105 ml 622 ml 688 ml Intake Oral 120 ml 120 ml IV Total 105 ml 752 ml 868 ml Other 350 ml Output Urine Total 300 ml 250 ml 300 ml Estimated Blood Loss 50 ml # Voids 3 # Bowel Movements 0 0 0 Result Diagram: 06/14/17 0710 06/14/17 0710 Imaging Last Impressions Hip X-Ray 06/13/17 0000 Signed Impressions: Service Date/Time: Tuesday, June 13, 2017 11:40 - CONCLUSION: Expected findings following ORIF of left subcapital femoral neck fracture. Sin Billy MD Chest X-Ray 06/12/17 1243 Signed Impressions: Service Date/Time: May 12:48 - CONCLUSION: Biapical pleural parenchymal thickening. The lungs are clear. Stable exam. Giovanny Dalton MD Hip and Pelvis X-Ray 06/12/17 0000 Signed Impressions: Service Date/Time: May 12:19 - CONCLUSION: Suspected subcapital femoral neck fracture left hip. Haroldo Greer MD Objective Remarks Well-developed, well-nourished in no distress Systolic murmur aortic area. Irregularly irregular Lungs are clear decreased breath sounds Alert and oriented nonfocal Procedures Percutaneous pinning left hip A/P Problem List: (1) Hip fracture ICD Code: S72.009A Status: Acute Assessment and Plan 87 year old female status post left hip fracture. Left femoral neck fracture of hip status post pinning. Stable Continue postoperative care with PT, wound care, pain management with Lortab and IV morphine and incentive spirometry. Atrial fibrillation, chronic on Coumadin Supratherapeutic INR. Resolved CVR restart Cardizem Follow INR, continue Coumadin bridge with Lovenox Hypokalemia May have been transient Follow potassium Replace if needed DVT Prophylaxis As above Discharge Planning Discharge to rehabilitation when cleared by orthopedic surgery possibly in the morning Problem Qualifiers (1) Hip fracture: Qualified Code: S72.002A - Hip fracture, left, closed, initial encounter Jama Delong MD Jun 14, 2017 12:11
[2017-06-14] MEDS ORDERED: SENN1TAB PO (12:13)
--- NOTE | 2017-06-14 12:13 | HHI.DCPOC ---
Discharge Care Plan Diagnosis: (1) Hip fracture Your Health Problems Are: Difficulty with ADL Exercise Tolerance Goals to Promote Your Health * To prevent worsening of your condition and complications * To maintain your health at the optimal level Directions to Meet Your Goals Take your medications as prescribed Follow your dietary instruction Follow activity as directed Keep your appointments as scheduled Take your immunizations and boosters as scheduled If your symptoms worsen call your PCP, if no PCP go to Urgent Care Center or Emergency Room Smoking is Dangerous to Your Health. Avoid second hand smoke Call the 24-hour hour crisis hotline for domestic abuse at Jama Delong MD Jun 14, 2017 12:13
[2017-06-14] MEDS: HYDROmorphone HCL PF 1 MG/ML VIAL IV PRN (12:14)
[2017-06-14] MEDS ORDERED: WARFARIN SOD 3 MG TAB PO SCH (16:00)
[2017-06-15 00:01] VITALS: BP 131/67; PULSE 93; RESP 18; TEMP 97; O2SAT 93
[2017-06-15] MEDS: ENOXAPARIN SODIUM 30 MG/0.3 ML SYRINGE SQ SCH (00:59)
[2017-06-15] MEDS: SENNOSIDES 8.6 MG TAB PO PRN ×2 (04:56→12:07)
[2017-06-15] MEDS: MAGNESIUM HYDROXIDE SUSP 30 ML CUP PO PRN ×2 (04:56→12:07)
[2017-06-15] MEDS: ACETAMINOPHEN/HYDROcodone 325 MG/5 MG TAB PO PRN ×3 (04:56→20:49)
--- NOTE | 2017-06-15 06:49 | PD.ORT.PN ---
Subjective Subjective Remarks s/p Left Hip perc pinning - POD 2 -doing well. reports slight pain but comfortable Objective Vitals Vital Signs Date Time Temp Pulse Resp B/P Pulse Ox O2 Delivery O2 Flow Rate FiO2 06/15/17 00:15 Nasal Cannula 2.00 06/15/17 00:01 97.0 93 18 131/67 93 06/14/17 21:22 92 21 06/14/17 20:05 97.7 86 18 158/70 93 06/14/17 20:00 93 Room Air 06/14/17 16:00 95.5 83 18 123/65 92 06/14/17 12:00 95.8 95 17 134/66 97 06/14/17 10:54 Nasal Cannula 2.00 06/14/17 10:11 97 21 06/14/17 08:00 97.8 81 17 146/66 98 I/O 06/14/17 06/14/17 06/14/17 06/15/17 06/15/17 06/15/17 07:00 15:00 23:00 07:00 15:00 23:00 Intake Total 988 ml 802 ml 120 ml Output Total 300 ml 400 ml Balance 688 ml 802 ml -280 ml Intake Oral 120 ml 120 ml IV Total 868 ml 802 ml Output Urine Total 300 ml 400 ml Bladder Scan Volume Amount 437 ml # Voids 2 # Bowel Movements 0 0 Result Diagram: 06/14/17 0710 06/14/17 0710 Other Results Laboratory Tests Test 06/14/17 07:10 Prothrombin Time 19.4 SEC (9.8-11.6) Prothromb Time International 1.7 RATIO Ratio Imaging Last 24 hours Impressions Chest X-Ray 06/12/17 1243 Signed Impressions: Service Date/Time: May 12:48 - CONCLUSION: Biapical pleural parenchymal thickening. The lungs are clear. Stable exam. Giovanny Dalton MD Objective Remarks LLE: knees flexed. no sensation distally. dressing clean and dry. intact Assessment & Plan Assessment and Plan 1) Left Femoral Neck Fx s/p perc pinning - POD 2 -TTWB -daily dressing changes POD 2 -CM for rehab placement -plan for DC to rehab once arrangements made -ortho cleared for DC -f/u with Rafael or JAYCEE in [address] Egan Jun 15, 2017 06:49
[2017-06-15 07:31] LABS: INTERNATIONAL NORMALIZED RATIO 2.7 RATIO; PROTHROMBIN TIME - PATIENT 31.1 SEC (9.8-11.6)
[2017-06-15 08:00] VITALS: BP 131/86; PULSE 100; RESP 20; TEMP 97.1; O2SAT 98
[2017-06-15] MEDS: SODIUM CHLORIDE 0.9% FLUSH 10 ML FLUSH IV FLUSH SCH ×2 (09:00→20:49)
[2017-06-15] MEDS: SODIUM CHLORIDE 0.9% FLUSH 5 ML FLUSH IVF SCH ×2 (10:13→20:50)
[2017-06-15] MEDS: DOCUSATE SODIUM 50 MG/SENNA 8.6 MG TAB PO SCH ×2 (10:14→20:49)
[2017-06-15] MEDS: DILTIAZEM-CD 300 MG CAP ER PO SCH (10:14)
[2017-06-15] MEDS: PANTOPRAZOLE SOD 40 MG DELAYED RELEASE TAB PO SCH (10:14)
[2017-06-15] MEDS: CHOLECALCIFEROL (VIT D3) 5000 UNIT CAP PO SCH (10:14)
--- NOTE | 2017-06-15 11:52 | HHI.PR ---
Subjective Remarks Follow-up hip fracture. She is doing okay out of bed to chair no complaints. No BM since admission confirmed by her daughter. She denies abdominal pain and nausea and vomiting. Also daughter who is the POA confirms patient is DO NOT RESUSCITATE. Discussed with RN she is stable for discharge to rehabilitation Objective Vitals Vital Signs Date Time Temp Pulse Resp B/P Pulse Ox O2 Delivery O2 Flow Rate FiO2 06/15/17 08:00 97.1 100 20 131/86 98 06/15/17 00:15 Nasal Cannula 2.00 06/15/17 00:01 97.0 93 18 131/67 93 06/14/17 21:22 92 21 06/14/17 20:05 97.7 86 18 158/70 93 06/14/17 20:00 93 Room Air 06/14/17 16:00 95.5 83 18 123/65 92 06/14/17 12:00 95.8 95 17 134/66 97 I/O 06/14/17 06/14/17 06/14/17 06/15/17 06/15/17 06/15/17 07:00 15:00 23:00 07:00 15:00 23:00 Intake Total 988 ml 802 ml 120 ml 120 ml Output Total 300 ml 400 ml Balance 688 ml 802 ml -280 ml 120 ml Intake Oral 120 ml 120 ml 120 ml IV Total 868 ml 802 ml Output Urine Total 300 ml 400 ml Bladder Scan Volume Amount 437 ml # Voids 2 2 # Bowel Movements 0 0 0 Result Diagram: 06/14/17 0710 06/14/17 0710 Objective Remarks Well-developed, well-nourished in no distress Systolic murmur aortic area. Irregularly irregular Lungs are clear decreased breath sounds Alert and oriented nonfocal No significant change in PE from previous Procedures Percutaneous pinning left hip A/P Problem List: (1) Hip fracture ICD Code: S72.009A Status: Acute Assessment and Plan 87 year old female status post left hip fracture. Left femoral neck fracture of hip status post pinning. Stable Continue postoperative care with PT, wound care, pain management with Lortab and IV morphine and incentive spirometry. Continue bowel regimen Atrial fibrillation, chronic on Coumadin Supratherapeutic INR. Resolved CVR on Cardizem Follow INR 2.7 today, continue Coumadin discontinue Lovenox Hypokalemia May have been transient Follow potassium Status post replacement DVT Prophylaxis As above Discharge Planning Stable for discharge Problem Qualifiers (1) Hip fracture: Qualified Code: S72.002A - Hip fracture, left, closed, initial encounter Jama Delong MD Jun 15, 2017 11:52
--- NOTE | 2017-06-15 11:53 | HHI.DS ---
Discharge Summary Admission Date Jun 12, 2017 at 13:53 Discharge Date: Jun 16, 2017 Admitting Diagnosis hip fracture (1) Hip fracture ICD Code: S72.009A Diagnosis: Principal Procedures Percutaneous pinning left hip Brief History - From Admission Ms. Keyes is an 87-year-old female patient with a known history of a atrial fibrillation on Coumadin, hypertension, dyslipidemia, GERD and history of multiple falls who presented to the ED by EMS transport after slipping out of her bed at the [facility] and sustaining a left femoral neck fracture of the hip. Patient seen and examined in room, alert and oriented x 3. Patient denies any loss of consciousness or hitting her head. States she has been living at an assisted living for some time now. Denies any recent illness including fever, chills, cough, shortness of breath, abdominal pain, nausea, vomiting, diarrhea or dysuria. Overall patient is a relatively poor historian and disengaged in conversation. Much of the medical history was obtained by medical records. CBC/BMP: 06/14/17 0710 06/14/17 0710 Significant Findings Laboratory Tests Test 06/12/17 06/13/17 06/14/17 06/15/17 12:00 04:54 07:10 06:28 Prothrombin Time 62.9 SEC 17.7 SEC 19.4 SEC 31.1 SEC (9.8-11.6) (9.8-11.6) (9.8-11.6) (9.8-11.6) Activated Partial 53.9 SEC Thromboplast Time (24.3-30.1) Potassium Level 3.3 MEQ/L 3.4 MEQ/L (3.5-5.1) (3.5-5.1) Creatinine 0.48 MG/DL (0.50-1.00) Alkaline Phosphatase 148 U/L (45-117) Albumin 3.1 GM/DL (3.4-5.0) White Blood Count 12.5 TH/MM3 13.2 TH/MM3 13.3 TH/MM3 (4.0-11.0) (4.0-11.0) (4.0-11.0) Mean Corpuscular Hemoglobin 26.7 PG (27.0-34.0) Platelet Count 503 TH/MM3 (150-450) Neutrophils (%) (Auto) 83.6 % 82.4 % (16.0-70.0) (16.0-70.0) Neutrophils # (Auto) 10.5 TH/MM3 10.9 TH/MM3 (1.8-7.7) (1.8-7.7) Lymphocytes (%) (Auto) 8.9 % (9.0-44.0) 25-Hydroxy Vitamin D Total 21.9 ng/ML (30-100) Chloride Level 108 MEQ/L (98-107) Carbon Dioxide Level 20.8 MEQ/L (21.0-32.0) Random Glucose 64 MG/DL (74-106) Imaging Last Impressions Hip X-Ray 06/13/17 0000 Signed Impressions: Service Date/Time: Tuesday, June 13, 2017 11:40 - CONCLUSION: Expected findings following ORIF of left subcapital femoral neck fracture. Sin Billy MD Chest X-Ray 06/12/17 1243 Signed Impressions: Service Date/Time: May 12:48 - CONCLUSION: Biapical pleural parenchymal thickening. The lungs are clear. Stable exam. Giovanny Dalton MD Hip and Pelvis X-Ray 06/12/17 0000 Signed Impressions: Service Date/Time: May 12:19 - CONCLUSION: Suspected subcapital femoral neck fracture left hip. Haroldo Greer MD PE at Discharge Well-developed, well-nourished in no distress Systolic murmur aortic area. Irregularly irregular Lungs are clear decreased breath sounds Alert and oriented nonfocal Hospital Course 87 year old female status post left hip fracture. Left femoral neck fracture of hip status post pinning. Stable Continue postoperative care with PT, wound care, pain management with Lortab and IV morphine and incentive spirometry. Continue bowel regimen, patient's stooling Atrial fibrillation, chronic on Coumadin Supratherapeutic INR. Resolved CVR on Cardizem Follow INR pending today 06/16, 2.7 06/15, continue Coumadin discontinue Lovenox Hypokalemia May have been transient Follow potassium Status post replacement DVT Prophylaxis As above Pt Condition on Discharge: Stable Discharge Disposition: Discharge to SNF Discharge Time: > 30 minutes Discharge Instructions DIET: Follow Instructions for: As Tolerated, No Restrictions Activities you can perform: Regular-No Restrictions, Toe Touch Weight Bearing Other Activity Instructions: TTWB injured extremity Follow up Referrals: Orthopedics - 2 Weeks [facility] with Sreedhar Hall MD PCP Follow-up - 1 Week New Orders: PT/INR New Medications: Ergocalciferol (Ergocalciferol) 50,000 Unit Cap 48197 UNITS PO Q7D Nutritional Supplement #8 Ref 0 CAP Hydrocodone-Acetaminophen (Kaycee) 5-325 mg Tab 1 TAB PO Q4H PRN PAIN #60 Ref 0 TAB Sennosides-Docusate Sodium (Senna Plus 8.6-50 mg) 1 Tab Tab 1 TAB PO BID Prevent Constipation #60 TAB Continued Medications: Diltiazem CD 24 HR (Diltiazem CD 24 HR) 300 Mg Caper 300 MG PO DAILY #30 Ref 0 CAP Pantoprazole (Pantoprazole) 40 Mg Tab 40 MG PO DAILY Reflux #30 Ref 0 TAB Warfarin (Warfarin) 2.5 Mg Tab 3 MG PO DAILY Blood Clot Prevention #30 Ref 0 TAB Discontinued Medications: Calcium Carbonate-Cholecalciferol (Calcium 600 with Vitamin D) 600-400 mg-Unit Tab 1 TAB PO DAILY Calcium Supplement Ref 0 TAB Additional Information I spent 35 minutes [id number] with the patient or on the joshi discussing the patient's disposition, prognosis, and plan of care with patient's caregivers. Over half the time spent was devoted to counseling the patient regarding placement in coordinating care with caregivers and case management. Jama Delong MD Jun 15, 2017 11:53 Jama Delong MD Jun 15, 2017 11:53
[2017-06-15 12:00] VITALS: BP 141/69; PULSE 99; RESP 20; TEMP 97.6; O2SAT 97
[2017-06-15] MEDS: LACTULOSE SYRUP 20 GM/30 ML CUP PO PRN (12:07)
[2017-06-15 16:00] VITALS: BP 122/72; PULSE 88; RESP 18; TEMP 96.1; O2SAT 97
[2017-06-15] MEDS ORDERED: WARFARIN SOD 2 MG TAB PO SCH (16:00)
[2017-06-15 20:00] VITALS: BP 138/70; PULSE 85; RESP 17; TEMP 96.7; O2SAT 95
[2017-06-16 00:34] VITALS: BP 144/72; PULSE 81; RESP 17; TEMP 96.7; O2SAT 92
[2017-06-16] MEDS: ACETAMINOPHEN/HYDROcodone 325 MG/5 MG TAB PO PRN (05:11)
[2017-06-16 07:37] VITALS: BP 130/66; PULSE 92; RESP 19; TEMP 96.5; O2SAT 90
[2017-06-16] MEDS: DILTIAZEM-CD 300 MG CAP ER PO SCH (08:59)
[2017-06-16] MEDS: DOCUSATE SODIUM 50 MG/SENNA 8.6 MG TAB PO SCH (08:59)
[2017-06-16] MEDS: CHOLECALCIFEROL (VIT D3) 5000 UNIT CAP PO SCH (08:59)
[2017-06-16] MEDS: SODIUM CHLORIDE 0.9% FLUSH 10 ML FLUSH IV FLUSH SCH (08:59)
[2017-06-16] MEDS: PANTOPRAZOLE SOD 40 MG DELAYED RELEASE TAB PO SCH (08:59)
[2017-06-16] MEDS: SODIUM CHLORIDE 0.9% FLUSH 5 ML FLUSH IVF SCH (08:59)
[2017-06-16 11:05] LABS: INTERNATIONAL NORMALIZED RATIO 3.6 RATIO; PROTHROMBIN TIME - PATIENT 41.6 SEC (9.8-11.6)
== END 2017-06-16 12:48 | DRG 482 ==
LOC: NEPE 10:53 → NEDA 13:53 → N06B 17:00
PROVIDERS: ADMIT Internal Medicine; ATTEND Internal Medicine
PROC: 30233K1 Transfusion of Nonautologous Frozen Plasma into Peripheral Vein, Percutaneous Approach (ICD-10-PCS; 2017-06-12)
PROC: 0T9B70Z Drainage of Bladder with Drainage Device, Via Natural or Artificial Opening (ICD-10-PCS; 2017-06-13)
PROC: 0QS734Z Reposition Left Upper Femur with Internal Fixation Device, Percutaneous Approach (ICD-10-PCS; principal; 2017-06-13 10:36)
DX: S72.012A Unspecified intracapsular fracture of left femur, initial encounter for closed fracture (principal); I48.2 Chronic atrial fibrillation; I10 Essential (primary) hypertension; Z79.01 Long term (current) use of anticoagulants; W06.XXXA Fall from bed, initial encounter; Y93.89 Activity, other specified; Y92.092 Bedroom in other non-institutional residence as the place of occurrence of the external cause; R79.1 Abnormal coagulation profile; M19.042 Primary osteoarthritis, left hand; M19.041 Primary osteoarthritis, right hand; K21.9 Gastro-esophageal reflux disease without esophagitis; Z96.652 Presence of left artificial knee joint; E78.00 Pure hypercholesterolemia, unspecified; R29.6 Repeated falls; R32 Unspecified urinary incontinence; E87.6 Hypokalemia; E78.5 Hyperlipidemia, unspecified; Z86.11 Personal history of tuberculosis; Z66 Do not resuscitate
CPT/HCPCS: 36430; 71010; 73502; 76000; 80048; 80053; 82306; 85025; 85027; 85610; 85730; 86850; 86900; 86901; 86927; 93005; 96374; 96375; C1713; C1769; J0360; J0690; J1170; J1580; J1650; J2250; J2270; J2405; J3010; J3370; J7030; J7050; P9017

== ENCOUNTER 2017-08-18 07:19 | Inpatient (IN) | payer MEDICARE, BC ==
[~2017-08-18] VITALS: Ht 165.1 cm; Wt 59.0 kg
[2017-08-18] VITALS (8 sets, daily range): BP systolic 115; BP diastolic 71; PULSE 0–123; RESP 12; O2SAT 93–97
[~2017-08-18 07:19] MED LIST changes: -BACT800T5 PO; -CALC1TAB87 PO; +ERGO1CAP30 PO; +NORC5TAB PO; +SENN1TAB PO
[2017-08-18] MEDS ORDERED: CHLORHEXIDINE GLUCONATE 4% SOLN 120 ML BTL TOPICAL SCH (08:00)
[2017-08-18] MEDS ORDERED: INSULIN HUMAN REGULAR 1,000 UNITS/10 ML VIAL SQ PRN (08:00)
[2017-08-18] MEDS ORDERED: LACTATED RINGER'S 1000 ML IV PRN (08:00)
[2017-08-18] MEDS ORDERED: POVIDONE IODINE 5% (ANTISEPSIS KIT) 4 APPLICATIONS EACH NARE PRN (08:00)
[2017-08-18] MEDS ORDERED: VANCOMYCIN 1000 MG/NS 250 ML (for <70 kg) IV SCH ×2 (08:00)
[2017-08-18] MEDS ORDERED: ceFAZolin 2 GM PREMIX 50 ML IV SCH ×2 (08:00→15:00)
[2017-08-18] MEDS ORDERED: SODIUM CHLORID 0.9% 500 ML IV PRN (08:00)
[2017-08-18] MEDS ORDERED: CHLORHEXIDINE GLUCONATE 2 % 1 PACK (2 CLOTHS) TOPICAL PRN (08:00)
[2017-08-18] MEDS ORDERED: METOPROLOL TARTRATE 25 MG TAB PO PRN (08:00)
[2017-08-18] MEDS ORDERED: MORP20SO2 PO (08:14)
[2017-08-18] MEDS ORDERED: MORP1TAB24 PO (08:14)
[2017-08-18] MEDS ORDERED: REME30TA PO (08:14)
[2017-08-18] MEDS ORDERED: OMEP20TA PO (08:14)
[2017-08-18 08:42] LABS: INTERNATIONAL NORMALIZED RATIO 1.6 RATIO; PROTHROMBIN TIME - PATIENT 18.3 SEC (9.8-11.6)
[2017-08-18] MEDS ORDERED: GENTAMICIN SULFATE 80 MG/2 ML VIAL ONE (08:52)
[2017-08-18] MEDS ORDERED: TRANEXAMIC ACID INJ 885 MG in SODIUM CHLORIDE 0.9% INJ 100 ML IV SCH ×2 (09:45→11:00)
[2017-08-18] MEDS ORDERED: NITROGLYCERIN 2% OINT 1 GM PACKET ONE (10:39)
[2017-08-18] MEDS ORDERED: NITROGLYCERIN-D5W 50 MG/250 ML 250 ML ONE (10:39)
[2017-08-18] MEDS ORDERED: Post-op Orders (for Pharmacy) MISC XX ONE (11:15)
[2017-08-18] MEDS ORDERED: ACETAMINOPHEN/HYDROcodone 325 MG/5 MG TAB PO PRN (11:15)
[2017-08-18] MEDS ORDERED: MORPHINE SULFATE 4 MG/ML INJ IV PUSH PRN (11:15)
[2017-08-18] MEDS ORDERED: SODIUM CHLORIDE 0.9% FLUSH 5 ML FLUSH IVF PRN (11:15)
--- NOTE | 2017-08-18 11:16 | PD.OP ---
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 Surgeon: Sreedhar Sutton Manager Quality Systems(s): Rd Egan PA-C The surgical procedure was assisted by my physician costumer assistant. My P.A. presence was necessary throughout this case for the manipulation and positioning of the surgical extremity. My P.A. was assisting me throughout the duration of this procedure. The skill set of a physician costumer assistant was medically necessary to complete this procedure. During the surgical case the surgical services tech was working at the back table and the physician costumer assistant was directly assisting me. Operation and Findings: PLAN OF ACTIVITY Weight bear as tolerated. IMPLANTS USED DePuy Corail size 13 stem with size [44] bipolar head and [+1.5] neck. DRAIN: 7 mm Omkar-Cardozo drain DETAILS OF PROCEDURE This patient was brought into the operating room and placed on the OR table. The patient was given anesthesia. The patient received IV antibiotics. The patient was then placed in lateral decubitus position. The hip and leg were prepped with alcohol, followed by Hibiclens and draped in a usual sterile fashion. Time out procedure was performed. The procedure began with a inch incision over the posterolateral hip. The subcutaneous tissue was dissected with the Bovie. The iliotibial band were split in line with fibers. The Charnley retractor was placed. At this point attention was turned to hardware removal. The 3 screws were identified under fluoroscopy. Guide pins were placed into each of the screws. A screwdriver was now used to remove the 3 cannulated screws. Next attention was turned back to the hip. The piriformis and external rotators were released from the femur and tagged with a #1 Vicryl suture. The capsule is now incised and tagged with #1 Vicryl. The femoral neck fracture was now visualized. Soft tissue was retracted. Oscillating saw was used to cut through the femoral neck. The femoral head was sized and measured. At this point attention was turned to preparation of the proximal femur. A box osteotome was used to remove the lateral cortex of the femoral neck. The T- handle reamer was used to open the femoral canal. Next, the canal was broached. A lateralizing reamer was used to help lateralize the prosthesis. At this point a trial head and neck were placed. The hip was reduced. The patient was found to have excellent stability with good range of motion. Trial components were removed. Soft tissue and bone were thoroughly irrigated. A Corail stem was now opened. The stem was now impacted into the proximal femur. Care was taken to keep appropriate anteversion. The head and neck were now impacted onto the stem. The hip was again reduced. The hip was found to have good range of motion and good stability. Leg lengths were clinically equal. The wound was thoroughly irrigated. The capsule, piriformis and iliotibial band were closed with #1 Vicryl. Subcutaneous tissue was closed with 3-0 Vicryl. The skin was closed with cecilio. A sterile dressing was applied with Primapore. The patient was placed into a knee immobilizer. The patient was transferred to the recovery room in guarded condition after developing EKG changes intraoperatively. Lands Resource Manager was consult intraoperatively for stat consult. Needle and sponge counts were correct. Sreedhar Suttno MD Aug 18, 2017 11:16
[2017-08-18] MEDS ORDERED: DO NOT ADM ANY ANTICOAGULANT DRUGS PRN (11:30)
[2017-08-18 11:38] LABS: BLOOD GAS BASE EXCESS 4.4 mmol/L (-2-2); BLOOD GAS CARBOXYHEMOGLOBIN 1.6 % (0-4); BLOOD GAS HCO3 28 mmol/L (22-26); BLOOD GAS METHEMOGLOBIN 1.3 % (0-2); BLOOD GAS O2 HGB SATURATION 94 % (90-100); BLOOD GAS OXYGEN CONTENT 14.4 Vol % (12.0-20.0); BLOOD GAS PCO2 37 mmHg (38-42); BLOOD GAS PO2 87 mmHg (61-120); BLOOD GAS TOTAL HGB 10.8 G/DL (12.0-16.0); TEMP CORR TO 98.6
[2017-08-18 11:39] LABS: CRITICAL VALUE NO; DRAW SITE ALINE; FIO2 40 %; OXYGEN DEVICE VENTILATOR; STAT YES; VENT SETTINGS SIMV12/450/PS10/PEEP
[2017-08-18 11:47] LABS: BASOPHIL # 0.1 TH/MM3 (0-0.2); BASOPHIL % 0.6 % (0.0-2.0); EOSINOPHIL # 0.2 TH/MM3 (0-0.4); EOSINOPHIL % 1.2 % (0.0-4.0); HEMO FLAGS DIFF FINAL; LYMPH % 6.9 % (9.0-44.0); LYMPHOCYTE # 1.2 TH/MM3 (1.0-4.8); MEAN CELL VOLUME 83.1 FL (80.0-100.0); MEAN CORPUSCULAR HEMOGLOBIN 27.4 PG (27.0-34.0); MEAN CORPUSCULAR HGB CONC 32.9 % (32.0-36.0); MONO % 4.4 % (0.0-8.0); NEUT % 86.9 % (16.0-70.0); PLATELET COUNT 447 TH/MM3 (150-450); RED BLOOD COUNT 4.09 MIL/MM3 (4.00-5.30); RED CELL DISTRIBUTION WIDTH 16.8 % (11.6-17.2); WHITE BLOOD COUNT 17.2 TH/MM3 (4.0-11.0)
[2017-08-18 11:57] LABS: APTT (PATIENT) 27.8 SEC (24.3-30.1); INTERNATIONAL NORMALIZED RATIO 1.3 RATIO; PROTHROMBIN TIME - PATIENT 14.3 SEC (9.8-11.6)
--- NOTE | 2017-08-18 11:58 | RADRPT ---
EXAM DATE/TIME: 08/18/2017 11:11 [facility] COMPARISON: CHEST SINGLE AP, June 12, 2017, 12:48. HIP LEFT (AP&LAT 2/3VWS) WO AP PELVIS, June 13, 2017, 11:40. INDICATIONS : Post intubation. MEDICAL HISTORY : Hypertension. SURGICAL HISTORY : None. ENCOUNTER: Initial ACUITY: 1 day PAIN SCORE: Non-responsive. LOCATION: Bilateral chest FINDINGS: The heart is at the upper limits of normal in size. The ETT is in good position. The left lung demons trate COPD changes but is otherwise clear. There are consolidative changes of the right middle lobe. There is a small right basilar effusion. There is slight shift of the mediastinum from left to right. The osseous structures demonstrate degenerative changes but are otherwise intact. CONCLUSION: 1. Consolidation of the right middle lobe with a small right basilar effusion. This is new compared t o previous dated 06/12/17. 2. ET tube in good position. Calos Lal MD on August 18, 2017 at 11:55 Board Certified Radiologist. This report was verified electronically.
[2017-08-18] MEDS ORDERED: HEPARIN-NS/PF INJ 500 ML ONE (12:07)
[2017-08-18] MEDS ORDERED: NITROGLYCERIN INJ 5 ML ONE (12:08)
[2017-08-18] MEDS ORDERED: HEPARIN SODIUM - IV 10,000 UNITS/10 ML VIAL ONE (12:08)
[2017-08-18 12:19] LABS: BICARBONATE 29.2 MEQ/L (21.0-32.0); MAGNESIUM 1.6 MG/DL (1.5-2.5)
[2017-08-18 12:30] LABS: POTASSIUM 2.7 MEQ/L (3.5-5.1)
[2017-08-18] MEDS ORDERED: ASPIRIN 81 MG CHEW TAB ONE (12:41)
[2017-08-18] MEDS ORDERED: TIROFIBAN INFUSION INJ 250 ML IV ONE (12:45)
[2017-08-18] MEDS ORDERED: PROTAMINE SULFATE 50 MG/5 ML VIAL ONE (12:50)
[2017-08-18] MEDS ORDERED: ERGOCALCIFEROL (VIT D2) 50,000 UNIT CAP PO ONE (13:00)
[2017-08-18] MEDS ORDERED: ROCURONIUM INJ 50 MG/5 ML SYRINGE IV PUSH ONE (13:20)
[2017-08-18] MEDS ORDERED: ONDANSETRON HCL 4 MG/2 ML VIAL IV PUSH ONE (13:20)
[2017-08-18] MEDS ORDERED: DEXAMETHASONE SOD PHOS 4 MG/ML VIAL IV ONE (13:20)
[2017-08-18] MEDS ORDERED: METOPROLOL TARTRATE 5 MG/5 ML VIAL IV PUSH ONE (13:20)
[2017-08-18] MEDS ORDERED: NORMOSOL R INJ 1,000 ML IV ONE (13:20)
[2017-08-18] MEDS ORDERED: MORPHINE SULFATE 4 MG/ML INJ IV ONE (13:20)
[2017-08-18] MEDS ORDERED: LABETALOL HCL 100 MG/20 ML VIAL IV ONE (13:20)
[2017-08-18] MEDS ORDERED: PROPOFOL 200 MG/20 ML AMP IV ONE (13:20)
[2017-08-18] MEDS ORDERED: ESMOLOL HCL 100 MG/10 ML VIAL IV ONE (13:20)
[2017-08-18] MEDS ORDERED: MIDAZOLAM HCL 2 MG/2 ML VIAL IV ONE (13:20)
[2017-08-18] MEDS ORDERED: LACTATED RINGER'S 1000 ML INJ 1,000 ML IV ONE (13:20)
[2017-08-18] MEDS ORDERED: LIDOCAINE HCL 1% PF 5 ML AMPULE OTHER ONE (13:20)
[2017-08-18] MEDS ORDERED: CLOPIDOGREL 300 MG TAB ONE (13:21)
[2017-08-18] MEDS ORDERED: POTASSIUM CHLOR 10 MEQ PREMIX 100 ML ONE (13:37)
[2017-08-18] MEDS ORDERED: AMIODARONE HCL 150 MG/3 ML VIAL ONE ×2 (13:42→13:43)
[2017-08-18] MEDS ORDERED: DOPamine INJ PREMIX 500 ML ONE (13:53)
[2017-08-18] MEDS ORDERED: NOREPINEPHRINE-DEXTROSE DRIP 250 ML IV ONE (14:20)
--- NOTE | 2017-08-18 14:34 | MB ---
cc: NICOLE RYAN DATE OF CONSULTATION: 08/18/2017 HISTORY OF PRESENT ILLNESS Ms. Keyes is an 87-year-old white female who developed acute ST elevations during a right hemiarthroplasty with hardware removal. She was brought to the PACU and was found to have an acute anterior ST elevation myocardial infarction. An echocardiogram showed anteroseptal hypokinesis. The patient was brought emergently to the cardiac catheterization laboratory for further evaluation. PAST MEDICAL HISTORY 1. Hypertension. 2. Chronic atrial fibrillation. 3. Gastroesophageal reflux disease. 4. History of right hip surgery, knee surgery and tonsillectomy. MEDICATIONS 1. Warfarin. 2. Pantoprazole. 3. Senna. 4. Diltiazem. 5. Omeprazole. ALLERGIES 1. CODEINE. 2. NIFEDIPINE. 3. PROCARDIA. 4. OXYBUTYNIN. 5. FOSAMAX. SOCIAL HISTORY The patient does not smoke or drink alcohol. FAMILY HISTORY Negative for heart disease. REVIEW OF SYSTEMS Otherwise negative. PHYSICAL EXAMINATION VITAL SIGNS: Blood pressure 150/85, pulse 95 and regular. HEART: Irregularly irregular with no murmur or gallop. ABDOMEN: Soft. No bruits. EXTREMITIES: Without edema. 1+ distal pulses. NEUROLOGIC: The patient is intubated and sedated after her surgery. EKG EKG was reviewed and showed anteroseptal ST elevations with anteroseptal Q-waves and inferior septoplasty changes and atrial fibrillation. LABORATORY INR 1.3. DIAGNOSIS 1. Acute anterior wall myocardial infarction. 2. Chronic atrial fibrillation. 3. Status post right hip surgery. DISPOSITION Ms. Keyes will undergo emergent cardiac catheterization and coronary intervention if necessary. Nicole Ryan MD OPatel/NOLAN /1:55 PM /2:14 PM
[2017-08-18] MEDS ORDERED: AMIODARONE INJ 450 MG in D5W (EXCEL BAG) INJ 241 ML IV SCH (15:00)
[2017-08-18] MEDS ORDERED: TERBUTALINE INJ 1 MG/ML AMP SQ PRN (15:15)
[2017-08-18] MEDS ORDERED: DOPamine 800 MG/D5W PREMIX 500 ML IV PRN (15:15)
[2017-08-18] MEDS ORDERED: NOREPINEPHRINE 4 MG/D5W 250 ML IV PRN (15:15)
--- NOTE | 2017-08-18 15:22 | ECHRPT ---
Indication: HEART FAILURE CONCLUSIONS Normal left ventricular size. Wall thickness is normal. The left ventricular systolic function is severely reduced with an estimated ejection fraction less than 20%. There is large area of wall motion abnormalities with anteroseptal and apical akinesis. The right atrial size is mildly dilated. Mitral annular calcification is present. Mild mitral valve regurgitation. Aortic valve sclerosis is present. Trace aortic valve regurgitation. There is severe tricuspid regurgitation. There is estimated severe pulmonary hypertension present (76 mmHg). BP: / HR: Rhythm: Atrial fibrillation MEASUREMENTS (Male / Female) Normal Values Technical Quality:Good 2D ECHO LV Diastolic Diameter PLAX 3.7 cm 4.2 - 5.9 / 3.9 - 5.3 cm LV Systolic Diameter PLAX 3.5 cm IVS Diastolic Thickness 0.8 cm 0.6 - 1.0 / 0.6 - 0.9 cm LVPW Diastolic Thickness 0.7 cm 0.6 - 1.0 / 0.6 - 0.9 cm LV Relative Wall Thickness 0.4 RV Internal Dim ED PLAX 2.1 cm DOPPLER Mitral E Point Velocity 122.0 cm/s TR Peak Velocity 421.0 cm/s TR Peak Gradient 70.9 mmHg Right Atrial Pressure 5.0 mmHg Pulmonary Artery Systolic Pressu 75.9 mmHg Right Ventricular Systolic Press 75.9 mmHg FINDINGS LEFT VENTRICLE Normal left ventricular size. Wall thickness is normal. The left ventricular systolic function is severely reduced with an estimated ejection fraction less than 20%. and apical WMA. RIGHT VENTRICLE Normal right ventricular size and systolic function. LEFT ATRIUM The left atrial size is normal. RIGHT ATRIUM The right atrial size is mildly dilated. ATRIAL SEPTUM Thickened atrial septum is noted with morphological features most consistent with a lipomatous atria l septum. AORTA The aortic root and proximal ascending aorta are normal in size on limited imaging. MITRAL VALVE Mitral annular calcification is present. Mild mitral valve regurgitation. AORTIC VALVE Aortic valve sclerosis is present. Trace aortic valve regurgitation. TRICUSPID VALVE There is severe tricuspid regurgitation. There is estimated severe pulmonary hypertension present ( 76 mmHg). PULMONARY VALVE No pulmonary valve regurgitation or stenosis. VESSELS The inferior vena cava is normal in size. PERICARDIUM No pericardial effusion. Nicole Ryan MD, FACC (Electronically Signed) Final Date:18 August 2017 15:21
--- NOTE | 2017-08-18 15:24 | MA ---
cc: JORGE WALTERS DATE: 08/18/[address]-elevation myocardial infarction. PROCEDURE PERFORMED 1. Retrograde left heart catheterization with left ventriculography and selective coronary angiography. 2. Angioplasty and stenting of the mid and distal left anterior descending artery. ACCESS SITE Right femoral artery. EQUIPMENT USED 5-English pigtail catheter, 5-English JL4 and AR modified coronary artery catheters. XB LAD guide, marker wire, 2.0 x 50 mm balloon for pre-dilatation, 2.25 x 26 reji stent at 6 atmospheres. MEDICATIONS Heparin, IC nitroglycerine, Plavix, aspirin, dopamine IV, amiodarone and potassium, protamine. RESULTS A. HEMODYNAMICS Heart rate 95 beats per minute. Left ventricular end diastolic pressure 15 mmHg. Left ventricle 100/16. Aorta 100/60/84. B. LEFT VENTRICULOGRAPHY Left ventricular ejection fraction less than 20%. Wall motion large anterior apical and inferior regurgitation. C. CORONARY ANGIOGRAPHY Left main coronary artery is patent. Left anterior descending artery had severe diffuse 80% stenosis in the mid and distal portion with superimposed spasm. There was mild improvement with IC nitroglycerin but residual 80% stenosis was still observed. First diagonal artery is patent. Left circumflex artery is patent. OM1 patent. Right coronary artery is dominant, it is patent. PDA patent. PLV patent. The patient underwent balloon angioplasty using 2.0 balloon. This resulted in mid distal LAD perforation. Balloon was again inflated on several occasions with significant improvement of the perforation. A stat echo was performed with no evidence of significant effusion. Stenting of the mid-distal left descending artery was then performed and there was no evidence of perforation at the end of the study. The patient developed ventricular tachycardia, ventricular fibrillation and had to be cardioverted 200 joule biphasic shock. She was given IV amiodarone and IV dopamine. She was transferred to the ICU for further care. Stenosis in the LAD was 24 mm long, pre LOR flow 1, post LOR flow 3, post stenosis 30%. DIAGNOSIS 1. Acute ST elevation myocardial infarction. 2. Severe coronary artery disease with 80% stenosis of the left anterior descending artery. 3. Severe left ventricular dysfunction consistent with ischemic cardiomyopathy. 4. Successful LAD stenting. DISPOSITION Ms. Keyes will continue her in addition with Plavix and aspirin. Will continue post IA care. She was started on IV dopamine for hypotension and cardiogenic shock. She was also given IV amiodarone for ventricular tachycardia and ventricular fibrillation. Her overall prognosis post large anterior infarct is rather poor. This was discussed with the patient's family. MD BECKY Mata/TLAntonella /2:01 PM /3:08 PM
--- NOTE | 2017-08-18 15:26 | ECHRPT ---
Indication: R/O PERICARDIAL EFFUSION CONCLUSIONS No significant pericardial effusion. Very severe LV systolic dysfunction. BP: / HR: Rhythm: Sinus Technical Quality:Fair FINDINGS PERICARDIUM There is no pericardial effusion. Nicole Ryan MD, FACC (Electronically Signed) Final Date:18 August 2017 15:25
--- NOTE | 2017-08-18 15:27 | PD.CONS ---
[facility] Service Critical Care Medicine Consult Requested By Dr. Ryan Reason for Consult acute resp failure on the [facility] ventilation Primary Care Physician Brittaney Peter MD History of Present Illness 87-year-old female with left hip avascular necrosis following ORIF for left hip fracture who was brought in for and underwent left hip hemiarthroplasty with hardware removal under general anesthesia, intraoperatively she was noted to have ST elevations on monitor and subsequent EKG. After completion of surgery patient was taken to PACU and extubated. In view of ST elevation VA diagnosed on EKG she was evaluated by cardiology Dr. ryan who had been consulted intraoperatively. Patient underwent a 2-D echo which revealed anteroseptal hypokinesis. Patient was taken for emergent cardiac catheterization and was found to have diffuse disease involving LAD with LVEF 10-15%. She underwent 2 bare-metal stents to LAD and this was complicated by LAD per which was managed by stenting across with subsequent good flow per discussion with Dr. Ryan. Patient did have V. tach/V. fib during cardiac catheterization and was defibrillated and converted back to sinus rhythm was started on dopamine for hypotension and was also administered amiodarone. Patient was intubated during cardiac catheterization and placed on mechanical ventilation. [place] [facility] [place] was hypotensive with systolic blood pressure in the 50s on arrival. I evaluated the patient immediately on being notified and discussed the case with Dr. Ryan including hypotension. History was obtained by reviewing records and discussion with nursing staff as well as Dr. Ryan. PAST MEDICAL HISTORY 1. Hypertension. 2. Chronic atrial fibrillation. 3. Gastroesophageal reflux disease. 4. History of right hip surgery, knee surgery and tonsillectomy. MEDICATIONS 1. Warfarin. 2. Pantoprazole. 3. Senna. 4. Diltiazem. 5. Omeprazole. ALLERGIES 1. CODEINE. 2. NIFEDIPINE. 3. PROCARDIA. 4. OXYBUTYNIN. 5. FOSAMAX. SOCIAL HISTORY Per documentation on chart , patient does not smoke or drink alcohol. FAMILY HISTORY Negative for heart disease. REVIEW OF SYSTEMS Unobtainable as patient is currently orally intubated on mechanical ventilation. Physical Exam Vital Signs Vital Signs Date Time Temp Pulse Resp B/P (MAP) Pulse Ox O2 Delivery O2 Flow Rate FiO2 08/18/17 14:10 95 88/46 08/18/17 13:59 102 104/69 08/18/17 11:57 90 75/46 08/18/17 11:47 100 14 153/95 (114) 92 Mechanical Ventilator 40 08/18/17 11:45 103 13 162/99 (120) 92 Mechanical Ventilator 40 08/18/17 11:27 97.6 108 13 162/94 (116) 93 Mechanical Ventilator 40 08/18/17 08:10 98.6 100 22 136/83 (100) 97 Physical Exam HEENT/ Neuro: Sedated, orally intubated, Pallor present, no icterus, tongue/ mucosa moist Neck: No JVD Chest/Pulm: on mech vent, good air entry bilaterally, no wheezing or crackles CVS: S1-S2 regular, no murmur GI/abdomen: soft, nontender, bowel sounds sluggish Extremities: warm bilaterally, no edema. Left hip surgical site with dressing in place, MATT drain in place with minimal bloody drainage. Laboratory Laboratory Tests Test 08/18/17 08:17 08/18/17 11:23 08/18/17 11:28 Prothrombin Time 18.3 14.3 Prothromb Time International Ratio 1.6 1.3 White Blood Count 17.2 Red Blood Count 4.09 Hemoglobin 11.2 Hematocrit 34.0 Mean Corpuscular Volume 83.1 Mean Corpuscular Hemoglobin 27.4 Mean Corpuscular Hemoglobin Concent 32.9 Red Cell Distribution Width 16.8 Platelet Count 447 Mean Platelet Volume 7.4 Neutrophils (%) (Auto) 86.9 Lymphocytes (%) (Auto) 6.9 Monocytes (%) (Auto) 4.4 Eosinophils (%) (Auto) 1.2 Basophils (%) (Auto) 0.6 Neutrophils # (Auto) 15.0 Lymphocytes # (Auto) 1.2 Monocytes # (Auto) 0.8 Eosinophils # (Auto) 0.2 Basophils # (Auto) 0.1 CBC Comment DIFF FINAL Differential Comment Activated Partial Thromboplast Time 27.8 Blood Urea Nitrogen 8 Creatinine 0.34 Random Glucose 113 Calcium Level 7.9 Magnesium Level 1.6 Sodium Level 137 Potassium Level 2.7 Chloride Level 99 Carbon Dioxide Level 29.2 Anion Gap 9 Estimat Glomerular Filtration Rate 183 Total Creatine Kinase 61 Troponin I 0.32 25-Hydroxy Vitamin D Total 49.7 Blood Gas Puncture Site LINDA Blood Gas Patient Temperature 98.6 Blood Gas HCO3 28 Blood Gas Base Excess 4.4 Blood Gas Oxygen Saturation 94 Arterial Blood pH 7.49 Arterial Blood Partial Pressure CO2 37 Arterial Blood Partial Pressure O2 87 Arterial Blood Oxygen Content 14.4 Arterial Blood Carboxyhemoglobin 1.6 Arterial Blood Methemoglobin 1.3 Blood Gas Hemoglobin 10.8 Oxygen Delivery Device VENTILATOR Blood Gas Ventilator Setting SIMV12/450/PS10/PEEP Blood Gas Inspired Oxygen 40 Result Diagram: 08/18/17 1123 08/18/17 1123 Imaging Last Impressions Chest X-Ray 08/18/17 0000 Signed Impressions: Service Date/Time: Friday, August 18, 2017 11:11 - CONCLUSION: 1. Consolidation of the right middle lobe with a small right basilar effusion. This is new compared to previous dated 06/12/17. 2. ET tube in good position. Calos Lal MD Assessment and Plan Assessment and Plan 87-year-old female with: Left hip avascular necrosis status post total hip replacement Intra-Op STEMI status post emergent cardiac catheterization with LAD stenting Acute respiratory failure on mechanical ventilation Cardiomyopathy Cardiogenic shock V. tach/V. fib Plan: Neuro: Morphine/Ativan when necessary as needed while intubated on mechanical ventilation. Follow neuro status. Cardiovascular: Status post emergent cardiac catheterization with LAD stenting by Dr. Ogden. On dopamine and Levophed for pressor support. Amiodarone for V. tach as tolerated. Dr. Ryan from cardiology following. Aspirin/Plavix ordered per cardiology. Pulmonary: Continue mechanical ventilation, vent bundle, bronchodilators as needed. GI/liver: Nothing by mouth for now Heme: Follow CBC Renal/: IV hydration, strict intake output, monitor and replete electrolytes, follow BUN/creatinine. Endocrine: Watch for hyperglycemia, SSI for glycemic control if needed ID: Perioperative antibiotic prophylaxis per orthopedics. Prophylaxis: PPI/SCDs. Subcutaneous Lovenox when okay with orthopedics. Condition critical. Extensive discussions with Dr. ryan as well as patient's family at bedside. Family has been explained to them the poor prognosis by Dr. Ryan as well as by myself. They have elected to reinstate DNR status. Patient was reportedly on hospice previously. Consulted palliative care to assist with deciding goals of therapy. Prognosis appears extremely poor in this patient with ST elevation VA following hip surgery with cardiogenic shock. Per my discussion with patient 's family did not want any further invasive procedures including central lines and do not want ACLS/CPR in case of a cardiac arrest. Time spent on critical care excluding procedures 60 minutes Sivakumar Cabrera MD Aug 18, 2017 15:27
--- NOTE | 2017-08-18 15:54 | EKG ---
Date Performed: 08/18/2017 Time Performed: 11:27:08 PTAGE: 87 years EKG: ATRIAL FIBRILLATION LOW QRS VOLTAGE ANTEROSEPTAL MYOCARDIAL INFARCTION , POSSIBLY ACUTE ACUTE DE Anterior injury new since prior tracing. Strongly reccommend clinical corrolation. PREVIOUS TRACING : 06/12/2017 13.13 DOCTOR: Drew Harris Interpretating Date/Time 08/18/2017 15:53:07
--- NOTE | 2017-08-18 16:07 | CATHPROC ---
[employer] Interventional HIS Report Study Information Study Number Admission Scheduled Start Study Start [id number] Aug 18 2017 7:19AM 08/18/2017 Aug 18 2017 11:57AM [facility] Service Cardiac Catheterization Admit Source Facility Department Emergency department [facility] - Network Consultant Physician and Clinical Staff Initial Nicole Siddiqui Automatic Door Mechanic Ruben Lawrence,Sharonda Quiles RN Recorder Hostfranklin, Franklin,RT(R) Scrub Kenya Haddad,STEWARD/STEWARDESS ECONOMY CLASS TECH2 Procedures Performed Procedure Location (Site) Vessel Name Angiogram LV LV Ventricle Coronary Angiograms LCA Left Coronary Coronary Angiograms RCA Right Coronary PTCA LAD Dist Left Coronary Stent LAD Dist Left Coronary Wire insertion Fem Art (right) Femoral Art Equipment Time [employer] [facility] [employer] Director Description Size Mfg Part Number Used/Scraped TRANSDUCER, ANGELINA [id number] 12:15 WATERS WALLACE * Used W/STOCKCOCK *[id number] *[id number] [id number] *[id number] [id number] *[id number] *[id number] *[id number] 13:24 DAIG/[employer] ANGIOSEAL, FR6 VIP FR 6 Used *[id number] 12:15 Gather App INDUSTRIES PACK, CCL CUSTOM * Used *[id number] 12:15 Gather App PACER PEN, SKIN DUAL W/ RULER * Used *[id number] 12:44 MEDTRONIC BALLOON, 2.0 X 15MM EUPHORA 15MM Used *[id number] 13:14 MEDTRONIC STENT, 2.25 26 INTEGRITY 2.25 26 Used *[id number] 12:46 testhub MEDICAL 30 YIMI INDEFLATOR Used *[id number] 12:39 Mimix Broadband SHEATH, FR6.5 PRELUDE 11CM FR 6.5 038ACT Used *[id number] 12:15 Mimix Broadband WIRE, 3MMJ .035 180CM 180CM Used *[id number] PROBE COVER, STERILE [id number] 12:15 Aluwave MEDICAL * Used ULTRASOUND W/ GEL *[id number] 12:15 NAMIC MANIFOLD, 4 PORT * Used *[id number] 12:15 NAMIC TUBING, HIGH PRESSURE 48" 48" Used *[id number] 12:15 NYCOMED OMNIPAQUE, 350 MG, 150ML 150ML [id number] Used [id number] 12:15 BENJAMIN MEDICAL BLANKET,WARM AIR CCL * Used *[id number] 12:15 TERUMO MEDICAL SHEATH, FR5 TERUMO (10CM) FR 5 Used *[id number] Equipment Model, Serial, Lot Number and Expiration Data Description Model Number Serial Number Lot Number Expiration Date ANGIOSEAL, FR6 VIP [id number] 06-23-2018 STENT, 2.25 26 INTEGRITY [id number] 07-10-2018 History: Allergies Allergy Reaction *MDRO Multi-Drug Resistant MRSA Organism Actonel codeine Rash Fosamax MRI PRECAUTION Bladder stimulator. Brain scans only in PO. 03/12/17 lrs nifedipine 01/03/05: PT TAKES CARDIZEM CD AT HOME W/O ADVERSE EFFECT oxybutynin Procardia alendronate sodium risedronate sodium History: Risk Factors Family History of Hypertension Dyslipidemia Previous [place] Previous Heart Failure Premature CAD Yes Yes No No No Prior Valve Prior PCI Prior CABG Surgery No No No Cerebrovascular Peripheral Artery Chronic Lung On Dialysis Diabetes Disease Disease Disease No No No No No History: Stress Tests Stress or Imaging Studies Performed No History: Other Current Smoker No Labs Hgb (g/dl) Hct (%) RBC (MIL/MM3) WBC (l/cumm) Platelets (thousands) 11.60-17.00 35.00-51.00 4.00-5.90 4.00-11.00 150.00-450.00 11.2 34 4 17.2 447 Glucose (mg/dl) BUN (mg/dl) Creatinine (mg/dl) BUN:Creatinine (1:x) 74.00-106.00 7.00-18.00 0.50-1.30 10.00-20.00 113 8 0.3 26.7 Na (meq/l) K (meq/l) 136.00-145.00 3.50-5.10 137 2.7 PT (sec) INR (PTT:PT) 9.80-11.60 0.90-1.10 18.3 1.3 CPK-MB (ng/ML) 0.50-3.60 Not Drawn Medication Medication Total Dose (Bolus/Oral) Medication Total Dosage/Unit 1% XYLOCAINE 20 mL AMIODARONE 150 mg ASPIRIN 81 mg EPINEPHRINE 11/999 1 mg HEPARIN 4500 units NTG (IC) 500 mcg PLAVIX 300 mg PROTAMINE 45 mg Medications (Bolus/Oral) Medication Time Given Dosage/Unit Administered By Reason 1% XYLOCAINE 08/18/2017 12:22:42 PM 20 mL Nicole Ryan 20 mL 1% XYLOCAINE given in lab by Nicole Ryan in Right Groin via Subcutaneous. Ordered by Nicole Saeed. NTG (IC) 08/18/2017 12:27:59 PM 100 mcg Nicole Ryan 100 mcg NTG (IC) given in lab by Nicole Ryan via Intra-coronary. Ordered by Nicole Ryan. NTG (IC) 08/18/2017 12:31:00 PM 200 mcg Nicole Ryan 200 mcg NTG (IC) given in lab by Nicole Ryan via Intra-coronary. Ordered by Nicole Ryan. NTG (IC) 08/18/2017 12:34:27 PM 200 mcg Nicole Ryan 200 mcg NTG (IC) given in lab by Nicole Ryan via Intra-coronary. Ordered by Nicole Ryan. HEPARIN 08/18/2017 12:40:30 PM 4500 units Ruben Lawrence 4500 units HEPARIN given in lab by Ruben Lawrence RN in Right Forearm via Peripheral IV. Ordered by Nicole Koehler. PROTAMINE 08/18/2017 12:53:02 PM 45 mg Sharonda Hurd 45 mg PROTAMINE given in lab by Sharonda Hurd RN in Left Forearm via Peripheral IV. Ordered by Nicole Pineda. EPINEPHRINE 11/999 08/18/2017 1:37:24 PM 1 mg Sharonda Hurd 1 mg EPINEPHRINE 11/999 given in lab by Sharonda Hurd RN in Right Forearm via Peripheral IV. Order ed by Nicole Ryan. ASPIRIN 08/18/2017 1:40:17 PM 81 mg Sharonda Hurd 81 mg ASPIRIN given in lab by Sharonda Hurd, MATT. Ordered by Nicole Ryan. NG tube PLAVIX 08/18/2017 1:40:34 PM 300 mg Sharonda Hurd 300 mg PLAVIX given in lab by Sharonda Hurd, MATT via Oral. Ordered by Nicole Ryan. NG Tube AMIODARONE 08/18/2017 1:49:56 PM 150 mg Sharonda Hurd 150 mg AMIODARONE given in lab by Sharonda Hurd, MATT in Right Forearm via Peripheral IV. Ordered by Nicole Ryan. Medication (Drip) Medication Time Given Dosage/Unit Concentration/Unit Diluent (ml) Solution DOPAMINE HCL 08/18/2017 1:50:10 PM 4 mcg/kg/min 800 mg 500 D5W 4 mcg/kg/min DOPAMINE HCL given in lab by Sharonda Hurd, MATT via Peripheral IV. Pump/Drip Flow = 8.8 5 ml/hr using D5W with a concentration of 800 mg in 500 ml. Ordered by Nicole Ryan. IV Solutions 08/18/2017 12:05:43 PM 0 mL (IV) 500 NaCl .9 Patient arrived on IV Solutions given by Nicole Ryan in Right Forearm via Peripheral IV. Pump/Dri p Flow = 20 ml/hr using NaCl .9. Ordered by Nicole Ryan. IV Solutions 08/18/2017 12:06:08 PM 0 mL (IV) 500 NaCl .9 Patient arrived on IV Solutions given by Nicole Ryan in Left Forearm via Peripheral IV. Pump/Drip Flow = 20 ml/hr using NaCl .9. Ordered by Nicole Ryan. NITROGLYCERIN DRIP 08/18/2017 12:33:01 PM 10 mcg/min 50 mg 250 D5W 10 mcg/min NITROGLYCERIN DRIP given in lab by Nicole Ryan via Peripheral IV. Pump/Drip Flow = 3 m l/hr using D5W with a concentration of 50 mg in 250 ml. Ordered by Nicole Ryan. NITROGLYCERIN DRIP 08/18/2017 12:58:27 PM 0 mcg/min 50 mg 250 D5W 0 mcg/min NITROGLYCERIN DRIP given in lab by Sharonda Hurd, MATT via Peripheral IV. Pump/Drip Flow = 0 ml/hr using D5W with a concentration of 50 mg in 250 ml. Ordered by Nicole Ryan. stopped per Dr. Appiah POTASSIUM DRIP 08/18/2017 1:51:41 PM 10 meq/hr 10 meq 100 D5W .9 NaCl 10 meq/hr POTASSIUM DRIP given in lab by Sharonda Hurd, MATT in Right Forearm via Peripheral IV. Pump /Drip Flow = 100 ml/hr using D5W .9 NaCl with a concentration of 10 meq in 100 ml. Ordered by Nicole Ryan. Initial Case Assessment Cardiovascular Rhythm stemi Edema Present Skin color Skin None Normal Warm Dry Circulatory - Right Pulses Dorsalis Pedis Femoral 1 1 Scale (0,1,2,3,4,d) Circulatory - Left Pulses Dorsalis Pedis Femoral 1 1 Scale (0,1,2,3,4,d) Neurological State Unresponsive Respiration - General Respiration Rate SpO2 (%) (B/min) 14 98 Respiration - Ventilator Settings TV (ml) IMV (L) FIO2 (%) PEEP (cm/H2O) 450 12 60 5 Final Case Assessment Cardiovascular Edema Present Skin color Skin None Normal Warm Dry Circulatory - Right Pulses Dorsalis Pedis Femoral 1 1 Scale (0,1,2,3,4,d) Circulatory - Left Pulses Dorsalis Pedis Femoral 1 1 Scale (0,1,2,3,4,d) Neurological State Unresponsive Respiration - General Respiration Rate SpO2 (%) (B/min) 14 99 Respiration - Ventilator Settings TV (ml) IMV (L) FIO2 (%) PEEP (cm/H2O) 450 12 60 5 Chronological Log Time Study Chronological Log 11:56:36 Patient arrived via Bed. 11:56:37 Patient Name, D.O.B, / Armband Verified By R.N. 11:56:38 Consent signed by the physician and the patient and verified by the Network Consultant staff. 11:57:44 Pre-op and post- op instructions given; patient acknowledges understanding of instructions. 11:57:49 Patient has been NPO for More than 6Hrs. 11:57:54 Skin Breakdown- none 11:57:55 Patient Warmer Placed on the Table. 11:57:56 Disposable Defibrillator Pads Placed On Patient. 11:57:58 Radha Prominences Protected 11:58:01 A # 20 IV was noted in the Forearm (right). Grade = 0 11:58:03 History and physical on the chart or being dictated. Vitals capture started with the following parameters, Patient=Adult, Interval=5 min, Initial Pr rsdkmy=745 mmHg, 12:01:47 Deflation Rate=5 mmHg, Cuff placed on Right Arm 12:02:07 VH=343 bpm, NIBP=90/78 mmhg, SpO2=98.0 %, Resp=5 B/min, Tracey=5 12:05:36 A # 20 IV was noted in the Forearm (left). Grade = 0 Patient arrived on IV Solutions given by Nicole Ryan in Right Forearm via Peripheral IV. Pu mp/Drip Flow = 20 ml/hr 12:05:43 using NaCl .9. Ordered by Nicole Ryan. Patient arrived on IV Solutions given by Nicole Ryan in Left Forearm via Peripheral IV. Pum p/Drip Flow = 20 ml/hr 12:06:08 using NaCl .9. Ordered by Nicole Ryan. 12:06:25 History and physical on the chart or being dictated. Assessment: Initial Case, Rhythm=stemi, Edema=None, Color=Normal, Skin = Warm, Dry Right Pulses: Ayaan Ped=1, Femoral=1 12:06:30 Left Pulses: Ayaan Ped=1, Femoral=1 Neurological: State=Unresponsive Respiration: Resp=14 B/min, SpO2=98 %, NK=613 mL, IMV=12 L, FIO2=60 %, PEEP=5 cm/H2O 12:07:09 Pressure channel 2 zeroed. 12:07:36 Bilateral groins prepped with 2% chlorhexidine, and with a 3 min. waiting time. 12:08:03 SG=651 bpm, SGXW=654/109 mmhg, SpO2=98.0 %, Resp=37 B/min, Tracey=5 12:10:21 Pressure channel 1 zeroed. 12:12:13 Reference ECG taken 12:12:17 HR=85 bpm, OUGN=916/103 mmhg, SpO2=98.0 %, Resp=11 B/min, Tracey=5 12:15:23 MD paged 12:17:18 HR=90 bpm, XCWS=571/102 mmhg, SpO2=98.0 %, Resp=11 B/min, Rtacey=5 Time Out. Correct patient, correct procedure,correct physician, ,power injector not loaded with contrast with surgical 12:21:16 team present. Time Out Concurred by MD, individual staff and BAND MASTER in procedure. Not loaded at t his time. 12:22:07 Presedation re-assessment performed by Network Consultant RN. 12:22:09 Case Start 12:22:19 HR=94 bpm, YUVW=659/107 mmhg, SpO2=98.0 %, Resp=12 B/min, Tracey=5 12:22:42 20 mL 1% XYLOCAINE given in lab by Nicole Ryan in Right Groin via Subcutaneous. Ordered by Nicole Ryan. 12:23:39 Access site was Right Femoral Artery. 12:23:50 A SHEATH, FR5 TERUMO (10CM) FR 5 was advanced into the Fem Art (right) using the Percutaneo us technique. A JL 4.0 INFINITI CATHETER FR 5 was advanced over a wire. OMNIPAQUE, 350 MG, 150ML 150ML was us ed for 12:24:30 injections. Recorded Pressure: Ao, HR=87, Condition=Condition 1 12:25:46 (Aorta) Ao 140/81/109 12:26:12 The LCA was injected and visualized at various angles. OMNIPAQUE, 350 MG, 150ML 150ML used . 12:27:22 HR=86 bpm, DNFB=669/94 mmhg, Resp=13 B/min, Tracey=5 12:27:59 100 mcg NTG (IC) given in lab by Nicole Ryan via Intra-coronary. Ordered by Figueroa Ryan. 12:29:05 Vitals capture stopped. Vitals capture started with the following parameters, Patient=Adult, Interval=5 min, Initial Pr uturpg=712 mmHg, 12:29:06 Deflation Rate=5 mmHg, Cuff placed on Right Arm 12:29:34 HR=84 bpm, BSVY=994/93 mmhg, Resp=11 B/min, Tracey=5 12:31:00 200 mcg NTG (IC) given in lab by Nicole Ryan via Intra-coronary. Ordered by Figueroa Ryan 10 mcg/min NITROGLYCERIN DRIP given in lab by Nicole Ryan via Peripheral IV. Pump/Drip Flow = 3 ml/hr using 12:33:01 D5W with a concentration of 50 mg in 250 ml. Ordered by Nicole Ryan. 12:34:27 200 mcg NTG (IC) given in lab by Nicole Ryan via Intra-coronary. Ordered by Figueroa Ryan. 12:34:33 HR=81 bpm, BDLN=055/85 mmhg, SpO2=99.0 %, Resp=12 B/min, Tracey=5 12:35:44 Catheter was removed A AR MOD INFINITI CATHETER FR 5 was advanced over a wire. OMNIPAQUE, 350 MG, 150ML 150ML was us ed for 12:36:22 injections. 12:37:51 The RCA was injected and visualized at various angles. OMNIPAQUE, 350 MG, 150ML 150ML used . 12:38:21 Catheter was removed A SHEATH, FR6.5 PRELUDE 11CM FR 6.5 was exchanged in the Fem Art (right). This was necessary in order to 12:38:53 accomodate a larger catheter. 12:39:36 PA=518 bpm, JQGT=829/89 mmhg, SpO2=98.0 %, Resp=12 B/min, Tracey=5 12:40:30 4500 units HEPARIN given in lab by Ruben Lawrence RN in Right Forearm via Peripheral IV. Or dered by Nicole Ryan. A XB 3.5 GUIDE CATHETER FR 6 was advanced over a wire. OMNIPAQUE, 350 MG, 150ML 150ML was used for 12:40:36 injections. 12:43:03 A WIRE, ATW MARKER 195CM 195CM was inserted via Fem Art (right). 12:44:21 Interventional wire has crossed the lesion 12:44:27 A BALLOON, 2.0 X 15MM EUPHORA 15MM was inserted over WIRE, ATW MARKER 195CM 195CM via the L AD Dist. 12:44:37 HR=89 bpm, TVGH=589/87 mmhg, SpO2=98.0 %, Resp=11 B/min, Tracey=5 A BALLOON, 2.0 X 15MM EUPHORA 15MM over a WIRE, ATW MARKER 195CM 195CM in the LAD Dist was infl ated using 12:45:58 a 30 YIMI INDEFLATOR at 8 yimi for 10 sec. A BALLOON, 2.0 X 15MM EUPHORA 15MM over a WIRE, ATW MARKER 195CM 195CM in the LAD Dist was infl ated using 12:46:56 a 30 YIMI INDEFLATOR at 8 yimi for 10 sec. A BALLOON, 2.0 X 15MM EUPHORA 15MM over a WIRE, ATW MARKER 195CM 195CM in the LAD Dist was infl ated using 12:47:14 a 30 YIMI INDEFLATOR at 15 yimi for 20 sec. 12:49:34 HR=87 bpm, QSVB=175/96 mmhg, SpO2=99.0 %, Resp=13 B/min, Tracey=5 A BALLOON, 2.0 X 15MM EUPHORA 15MM over a WIRE, ATW MARKER 195CM 195CM in the LAD Dist was infl ated using 12:49:51 a 30 YIMI INDEFLATOR at 8 yimi for 120 sec. 12:50:48 Echo called stat due to perforation. 12:53:02 45 mg PROTAMINE given in lab by Sharonda Hurd, RN in Left Forearm via Peripheral IV. Orde red by Nicole Ryan. 12:54:37 HR=83 bpm, MRBC=288/90 mmhg, SpO2=99.0 %, Resp=11 B/min, Tracey=5 12:55:25 ECHO has arrived. 0 mcg/min NITROGLYCERIN DRIP given in lab by Sharonda Hurd, MATT via Peripheral IV. Pump/Drip F low = 0 ml/hr 12:58:27 using D5W with a concentration of 50 mg in 250 ml. Ordered by Nicole Ryan. stopped per Dr. Appiah 12:59:34 HR=81 bpm, KIPV=842/97 mmhg, SpO2=99.0 %, Resp=10 B/min, Tracey=5 A BALLOON, 2.0 X 15MM EUPHORA 15MM over a WIRE, ATW MARKER 195CM 195CM in the LAD Dist was infl ated using 13:00:16 a 30 YIMI INDEFLATOR at 8 yimi for 120 sec. 13:02:16 ACT (Normal Range 90-180) = 135 A BALLOON, 2.0 X 15MM EUPHORA 15MM over a WIRE, ATW MARKER 195CM 195CM in the LAD Dist was infl ated using 13:03:37 a 30 YIMI INDEFLATOR at 8 yimi for 460 sec. 13:04:37 HR=90 bpm, DMPZ=843/89 mmhg, SpO2=99.0 %, Resp=11 B/min, Tracey=5 13:09:36 HR=91 bpm, BPLS=514/92 mmhg, SpO2=99.0 %, Resp=11 B/min, Tracey=5 A BALLOON, 2.0 X 15MM EUPHORA 15MM over a WIRE, ATW MARKER 195CM 195CM in the LAD Dist was infl ated using 13:10:24 a 30 YIMI INDEFLATOR at 8 yimi for 460 sec. A BALLOON, 2.0 X 15MM EUPHORA 15MM over a WIRE, ATW MARKER 195CM 195CM in the LAD Dist was infl ated using 13:11:05 a 30 YIMI INDEFLATOR at 8 yimi for 460 sec. 13:13:44 Balloon Removed. An STENT, 2.25 26 INTEGRITY 2.25 26 Bare Metal Stent was inserted through a XB 3.5 GUIDE CATHET ER FR 6 over a 13:14:11 WIRE, ATW MARKER 195CM 195CM. A STENT, 2.25 26 INTEGRITY 2.25 26 was deployed using a 30 YIMI INDEFLATOR at 6 atmospheres for 30 seconds in 13:14:26 the LAD Dist. 13:14:39 HR=82 bpm, KTJA=512/85 mmhg, SpO2=99.0 %, Resp=12 B/min, Tracey=5 A STENT, 2.25 26 INTEGRITY 2.25 26 was deployed using a 30 YIMI INDEFLATOR at 6 atmospheres for 30 seconds in 13:16:54 the LAD Dist. 13:19:38 HR=73 bpm, JKKV=534/96 mmhg, SpO2=99.0 %, Resp=12 B/min, Tracey=5 13:22:28 Delivery device removed 13:23:05 Wire removed 13:23:09 Catheter was removed A JL 4.0 INFINITI CATHETER FR 5 was advanced over a wire. OMNIPAQUE, 350 MG, 150ML 150ML was us ed for 13:23:21 injections. 13:23:48 The LCA was injected and visualized at various angles. OMNIPAQUE, 350 MG, 150ML 150ML used . 13:24:37 HR=95 bpm, KGYR=073/96 mmhg, SpO2=99.0 %, Resp=13 B/min, Tracey=5 13:24:57 An injection in the Fem Art (right) was made through the SHEATH, FR6.5 PRELUDE 11CM FR 6.5. A PIGTAIL ANG. INFINITI CATHETER FR 5 was advanced over a wire. OMNIPAQUE, 350 MG, 150ML 150ML was used 13:28:14 for injections. Recorded Pressure: LV, HR=93, Condition=Condition 1 13:29:13 (Left Ventricle) LV 123/25/27 13:29:40 HR=96 bpm, KMQV=731/89 mmhg, SpO2=99.0 %, Resp=15 B/min, Tracey=5 13:30:00 The LV was injected at 10 cc/sec for a total of 30. OMNIPAQUE, 350 MG, 150ML 150ML used. Recorded Pressure: LV, Ao, HR=80, Condition=Condition 1 13:30:17 (Left Ventricle) LV 104/14/24, (Aorta) Ao 106/57/81 13:30:30 Catheter was removed 13:30:53 Case End 13:31:34 ANGIOSEAL, FR6 VIP FR 6 placement in the Fem Art (right) 13:35:30 HR=66 bpm, NIBP=98/46 mmhg, SpO2=97.0 %, Resp=12 B/min, Tracey=5 13:36:01 Pt shocked 200joules due to Vtach 13:36:39 CPR started. 1 mg EPINEPHRINE 11/999 given in lab by Sharonda Hurd, RN in Right Forearm via Peripheral IV. Ordered by Connor, 13:37:24 Nicole. 13:38:19 Pt shocked VTACH 350 Joules. 13:39:01 Pt converted to SR. Vitals capture started with the following parameters, Patient=Adult, Interval=5 min, Initial Pr omkhed=207 mmHg, 13:39:08 Deflation Rate=5 mmHg, Cuff placed on Right Arm 13:40:07 CE=291 bpm, ZCOE=792/141 mmhg, SpO2=96.0 %, Resp=16 B/min, Tracey=5 13:40:17 81 mg ASPIRIN given in lab by Sharonda Hurd, MATT. Ordered by Nicole Ryan. NG tube 13:40:34 300 mg PLAVIX given in lab by Sharonda Hurd, RN via Oral. Ordered by Nicole Ryan. NG Tube 13:40:35 Sterile dressing applied to site 13:42:00 Patient defibrillated at 300 joules. The ECG rhythm was noted as V-Fib. 13:42:10 Pt. back in sinus 13:44:41 TG=213 bpm, ZBUH=134/124 mmhg, SpO2=95.0 %, Resp=17 B/min, Tracey=5 13:49:45 FB=594 bpm, NIBP=99/78 mmhg, SpO2=91.0 %, Resp=14 B/min, Tracey=5 150 mg AMIODARONE given in lab by Sharonda Hurd, RN in Right Forearm via Peripheral IV. Order ed by Connor, 13:49:56 Nicole. 4 mcg/kg/min DOPAMINE HCL given in lab by Sharonda Hurd, RN via Peripheral IV. Pump/Drip Flow = 8.85 ml/hr 13:50:10 using D5W with a concentration of 800 mg in 500 ml. Ordered by Nicole Ryan. 10 meq/hr POTASSIUM DRIP given in lab by Sharonda Hurd, RN in Right Forearm via Peripheral IV . Pump/Drip Flow = 13:51:41 100 ml/hr using D5W .9 NaCl with a concentration of 10 meq in 100 ml. Ordered by Edna Ryan Assessment: Final Case, Edema=None, Color=Normal, Skin = Warm, Dry Right Pulses: Ayaan Ped=1, Femoral=1 13:52:09 Left Pulses: Ayaan Ped=1, Femoral=1 Neurological: State=Unresponsive Respiration: Resp=14 B/min, SpO2=99 %, YI=262 mL, IMV=12 L, FIO2=60 %, PEEP=5 cm/H2O 13:52:55 Pressure channel 2 zeroed. Recorded Pressure: Ao, HR=96, Condition=Condition 1 13:53:07 (Aorta) Ao 60/37/46 13:54:18 Cine recording checked. 13:54:20 Bedside Report will be given. 13:54:26 Implantable Device card placed in patient's chart. 13:54:31 Patient moved to stretcher 13:55:59 HR=90 bpm, NIBP=77/58 mmhg, SpO2=81.0 %, Resp=10 B/min, Tracey=2 End Study - Contrast Media Used In Study Contrast Total Opened (mL) Total Used (mL) Total Wasted (mL) Omnipaque 240 240 0 End Study - Maximum Contrast Load Max Contrast Load (mL) 983.3 End Study - Radiation Exposure Fluoro Time (minutes) 11.5 End Study - Patient Disposition Complications Transferred To Interventional Outcome Not selected Critical Care Bed successful
[2017-08-18] MEDS ORDERED: IOHEXOL 350 MG/ML 100 ML BTL (for Cath Lab) OTHER ONE (16:27)
[2017-08-18] MEDS ORDERED: IOHEXOL 350 MG/ML 50 ML BTL (for Cath Lab) OTHER ONE (16:27)
--- NOTE | 2017-08-18 16:44 | PD.CONS ---
Consult Service Palliative Care Consult Requested By Dr. Arsen Cabrera Primary Care Physician Brittaney Peter MD Reason for Consultation a. To assist with evaluation and management of symptoms including: Pain, dyspnea, anxiety b. To assist medical decision maker(s) with: better understanding of current medical conditions; weighing benefits/burdens of medical treatment options; making medical treatment decisions. 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 She underwent left hip hemiarthroplasty with hardware removal and intraoperatively developed ST elevations. Post surgery patient was taken to PACU and extubated. Dr. Ryan, her well blower, evaluated her there and in view of the ST elevation took her to the cardiac catheterization lab. She also underwent a 2-D echocardiogram revealing anteroseptal hypokinesis. During Overlock Operator procedure she was found to have diffuse disease involving the LAD with LVEF 10-15%. 2 bare metal stents were placed to the LAD with subsequent perforation of the LAD. Patient converted to V. tach/V. fib during cardiac catheterization , required defibrillation and dopamine and amiodarone were initiated. She was intubated during the catheterization and placed on mechanical ventilation for airway protection. She is seen in I[facility], hypotensive receiving amiodarone, Levophed and dopamine. In spite of intensive hemodynamic support, her blood pressure remains 88/46, heart rate 122 on telemetry. Laboratory studies white blood cells 7.2, hemoglobin 11.2, hematocrit 34.0, platelets 447, sodium 137, potassium 2.7, BUN 8, creatinine 0.34, magnesium 1.6 , troponin 0.32, T 14.3, INR 1.3, ABG pH 7.49, PCO2 37, PO2 87, HCO3 28, base excess positive for 0.4, O2 saturation 94% on 40% FiO2 SIMV 12/450/PS10/Peep. Spoke with son Cory and his at bedside, they wish to make their mother comfortable. They are aware that her outcome is likely to be extremely poor. The daughter, Awilda, is currently on a cruise in the [place] and unavailable. Family is currently in route to bedside. They have made the patient's status a DO NOT RESUSCITATE. Mother was previously on hospice through [facility] and residing in an [facility] due to progression of Gxhpngt-Vouji-Bsmrm disease with subsequent debility and inability to provide self-care. They do plan to resume hospice services if patient survives this admission. . Function/Cognitive Trajectory 2 years ago she was independent and living in her own home. With the progression of Uxkxyjz-Zqinu-Pwdpt disease she has had more difficulty ambulating and caring for herself. She currently lives in [facility] and per the family has had a progressive decline in quality of life and activity. . Review of Systems ROS Limitations: Clinical Condition, Intubated Past Family Social History Coded Allergies: codeine (Unverified Allergy, Severe, Rash, 07/08/17) alendronate sodium (Unverified Allergy, Intermediate, 07/08/17) nifedipine (Unverified Allergy, Intermediate, 07/08/17) REACTION TO ADALAT 01/03/05: PT TAKES CARIDZEM CD AT HOME WITHOUT ADVERSE EFFECT oxybutynin (Unverified Allergy, Intermediate, 07/08/17) risedronate sodium (Unverified Allergy, Intermediate, 07/08/17) MRI PRECAUTION (Verified Adverse Reaction, Intermediate, Bladder stimulator. Brain scans only in PO. 03/12/17 lrs, 06/12/17) *MDRO Multi-Drug Resistant Organism (Verified Adverse Reaction, Unknown, MRSA, 06/12/17) MRSA PCR (nares) POSITIVE - 03/10/17 Past Medical History Atrial fibrillation Hypertension Hyperlipidemia GERD Dhbszbu-Hcqyc-Cdyup Incontinence . Past Surgical History Left hip ORIF Left knee surgery Bladder stimulator Left heart catheterization Right hip surgery Tonsillectomy . Reported Medications Reported Meds & Active Scripts Active Senna Plus 8.6-50 mg (Sennosides-Docusate Sodium) 1 Tab Tab 1 Tab PO BID Ergocalciferol 50,000 Unit Cap 50,000 Units PO Q7D Monsey (Hydrocodone-Acetaminophen) 5-325 mg Tab 1 Tab PO Q4H PRN Reported Morphine Liq (Morphine Sulfate) 20 Mg/Ml Liq 5 Mg PO Q2HR PRN Morphine ER (Morphine Sulfate) 15 Mg Tab 15 Mg PO TID Remeron (Mirtazapine) 30 Mg Tab 30 Mg PO HS Omeprazole 20 Mg Tab 20 Mg PO DAILY Diltiazem CD 24 HR 300 Mg Caper 300 Mg PO DAILY Pantoprazole (Pantoprazole Sodium) 40 Mg Tab 40 Mg PO DAILY Warfarin 2.5 Mg Tab 1 Mg PO DAILY . Current Medications Medications (Trade) Dose Ordered Sig/Gauri Route Start Time Stop Time Status Last Admin Lactated Ringer's 1,000 ml @ 30 mls/hr Q24H PRN IV 08/18/17 08:00 08/21/17 07:59 08/18/17 08:21 Sodium Chloride 500 ml @ 30 mls/hr [id number] PRN IV 08/18/17 08:00 08/21/17 07:59 (Lopressor) 25 mg ATHLETICS TEACHER PRN PO 08/18/17 08:00 08/21/17 07:59 (Betadine 5% Antisepsis Kit) 1 applic ATHLETICS TEACHER PRN EACH NARE 08/18/17 08:00 08/21/17 07:59 08/18/17 08:21 (Chlorhexidine 2% Cloth) 3 pack ATHLETICS TEACHER PRN TOPICAL 08/18/17 08:00 08/21/17 07:59 08/18/17 08:00 (NovoLIN R INJ) See Protocol Table ... ATHLETICS TEACHER PRN SQ 08/18/17 08:00 08/21/17 07:59 (Hibiclens 4% Top Soln) 1 applic ONCE TOPICAL 08/18/17 08:00 08/21/17 07:59 08/18/17 08:20 Cefazolin Sodium/ Dextrose 50 ml @ 100 mls/hr ATHLETICS TEACHER IV 08/18/17 08:00 08/21/17 07:59 Vancomycin HCl 1000 mg/Sodium Chloride 250 ml @ 250 mls/hr ATHLETICS TEACHER IV 08/18/17 08:00 08/21/17 07:59 08/18/17 08:28 Tranexamic Acid 885 mg/Sodium Chloride 108.85 ml @ 200 mls/ hr UNSCH IV 08/18/17 09:45 08/18/17 16:00 Tranexamic Acid 885 mg/Sodium Chloride 108.85 ml @ 200 mls/ hr ATHLETICS TEACHER IV 08/18/17 11:00 08/18/17 17:00 (NS Flush) 2 ml UNSCH PRN IVF 08/18/17 11:15 (NS Flush) 2 ml BID IVF 08/18/17 21:00 Cefazolin Sodium/ Dextrose 50 ml @ 100 mls/hr Q6H IV 08/18/17 15:00 08/19/17 03:29 (Monsey 5-325 Mg) 1 tab Q3H PRN PO 08/18/17 11:15 (Morphine Inj) 3 mg Q3H PRN IV PUSH 08/18/17 11:15 (Vitamin D3) 5,000 units DAILY PO 08/19/17 09:00 (Cardizem Cd) 300 mg DAILY PO 08/19/17 09:00 (Remeron Soltab Odt) 30 mg HS PO 08/18/17 21:00 (Hilda-Colace) 1 tab BID PO 08/18/17 21:00 (Coumadin) 1 mg DAILY@1600 PO 08/19/17 16:00 (Protonix) 20 mg DAILY PO 08/19/17 09:00 (Coumadin Booklet) 1 ONCE ONCE OTHER 08/19/17 16:00 08/19/17 16:01 Miscellaneous Information ALL NURSING DEPARTME... UNSCH PRN .XX 08/18/17 11:30 08/19/17 11:29 Amiodarone HCl 450 mg/Dextrose 250 ml @ 33.33 mls/ hr Q7H31M IV 08/18/17 15:00 Norepinephrine Bitartrate 250 ml @ 37.5 mls/hr TITRATE PRN IV 08/18/17 15:15 Dopamine HCl/ Dextrose 500 ml @ 22.125 mls/ hr TITRATE PRN IV 08/18/17 15:15 (Brethine Inj) 1 mg UNSCH PRN SQ 08/18/17 15:15 . Family History Aunt had cancer, diabetes in a grandmother. . Substance Use Tobacco: Smoked one pack per day for most of her life, quit in 1979. Alcohol: Previously drank socially, no alcohol intake at this time. Prescription med abuse: No prescription med abuse noted. Illicits: No illicit drug use noted. . Psychosocial History She was born in [place] where she completed high school and her with whom she lived for 56 years prior to his about 9 years ago. They moved to [place] 20 years ago. They have 2 children a son, Cory and a daughter , Awilda. 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 . Spiritual/Cultural Factors She attends a [employer] pastored by her son-in-law. . Living Will: Completed, but not made available Health Care Surrogate: Never completed Durable Power of Lobby Porter: Completed, but not made available Health Care Surrogate(s): Both of her children, Cory and Awilda, are joint healthcare proxy's. . Documented care wishes: Patient was previously on [facility] hospice but rescinded services to undergo the hip surgery. Per the family they would like to resume hospice services at some point. . Today's verbally stated goals: Family has comfort oriented goals. . Ethical and Legal Issues No ethical or legal issues identified. . Physical Exam Vital Signs Date Time Temp Pulse Resp B/P (MAP) Pulse Ox O2 Delivery O2 Flow Rate FiO2 08/18/17 14:10 95 88/46 08/18/17 13:59 102 104/69 08/18/17 11:57 90 75/46 08/18/17 11:53 97 08/18/17 11:47 100 14 153/95 (114) 92 Mechanical Ventilator 40 08/18/17 11:45 103 13 162/99 (120) 92 Mechanical Ventilator 40 08/18/17 11:27 97.6 108 13 162/94 (116) 93 Mechanical Ventilator 40 08/18/17 11:24 93 40 08/18/17 08:10 98.6 100 22 136/83 (100) 97 . . 08/18/17 08/19/17 19:00 07:00 Intake Total 1446 ml Output Total 460 ml Balance 986 ml FFP 446 ml Other 1000 ml Output Urine Total 250 ml Drainage Total 10 ml Estimated Blood Loss 200 ml . Exam CONSTITUTIONAL/GENERAL: This is an ill appearing, elderly female lying in bed, intubated in no acute distress. TUBES/LINES/DRAINS: PIV right wrist, left forearm. SKIN: No jaundice, rashes, or lesions. HEAD: Atraumatic. Normocephalic. EYES: Pupils equal and round and reactive. Extraocular motions intact. No scleral icterus. No injection or drainage. Fundi not examined. ENT: Nose without bleeding or purulent drainage. NECK: Trachea midline, orally intubated. CARDIOVASCULAR: Tachycardic rate irregular rhythm with no auscultated murmur, rub or gallop. RESPIRATORY/CHEST: Symmetric, unlabored respirations. Clear to auscultation. Breath sounds equal bilaterally. No wheezes, rales, or rhonchi. GASTROINTESTINAL: Abdomen soft, non-tender, nondistended. No guarding. Bowel sounds present. GENITOURINARY: Without palpable bladder distension. Fuentes catheter in place. MUSCULOSKELETAL: Extremities are cool without clubbing, cyanosis, or edema. No mottling or clubbing. NEUROLOGICAL: Sedated, lethargic, opens eyes, nods appropriately. PSYCHIATRIC: Sedated. . Diagnostic Tests Laboratory Laboratory Tests Test 08/18/17 08:17 08/18/17 11:23 08/18/17 11:28 Prothrombin Time 18.3 SEC (9.8-11.6) 14.3 SEC (9.8-11.6) Prothromb Time International Ratio 1.6 RATIO 1.3 RATIO White Blood Count 17.2 TH/MM3 (4.0-11.0) Red Blood Count 4.09 MIL/MM3 (4.00-5.30) Hemoglobin 11.2 GM/DL (11.6-15.3) Hematocrit 34.0 % (35.0-46.0) Mean Corpuscular Volume 83.1 FL (80.0-100.0) Mean Corpuscular Hemoglobin 27.4 PG (27.0-34.0) Mean Corpuscular Hemoglobin Concent 32.9 % (32.0-36.0) Red Cell Distribution Width 16.8 % (11.6-17.2) Platelet Count 447 TH/MM3 (150-450) Mean Platelet Volume 7.4 FL (7.0-11.0) Neutrophils (%) (Auto) 86.9 % (16.0-70.0) Lymphocytes (%) (Auto) 6.9 % (9.0-44.0) Monocytes (%) (Auto) 4.4 % (0.0-8.0) Eosinophils (%) (Auto) 1.2 % (0.0-4.0) Basophils (%) (Auto) 0.6 % (0.0-2.0) Neutrophils # (Auto) 15.0 TH/MM3 (1.8-7.7) Lymphocytes # (Auto) 1.2 TH/MM3 (1.0-4.8) Monocytes # (Auto) 0.8 TH/MM3 (0-0.9) Eosinophils # (Auto) 0.2 TH/MM3 (0-0.4) Basophils # (Auto) 0.1 TH/MM3 (0-0.2) CBC Comment DIFF FINAL Differential Comment Activated Partial Thromboplast Time 27.8 SEC (24.3-30.1) Blood Urea Nitrogen 8 MG/DL (7-18) Creatinine 0.34 MG/DL (0.50-1.00) Random Glucose 113 MG/DL (74-106) Calcium Level 7.9 MG/DL (8.5-10.1) Magnesium Level 1.6 MG/DL (1.5-2.5) Sodium Level 137 MEQ/L (136-145) Potassium Level 2.7 MEQ/L (3.5-5.1) Chloride Level 99 MEQ/L (98-107) Carbon Dioxide Level 29.2 MEQ/L (21.0-32.0) Anion Gap 9 MEQ/L (5-15) Estimat Glomerular Filtration Rate 183 ML/MIN (>89) Total Creatine Kinase 61 U/L (26-192) Troponin I 0.32 NG/ML (0.02-0.05) 25-Hydroxy Vitamin D Total 49.7 ng/ML (30-100) Blood Gas Puncture Site LINDA Blood Gas Patient Temperature 98.6 Blood Gas HCO3 28 mmol/L (22-26) Blood Gas Base Excess 4.4 mmol/L (-2-2) Blood Gas Oxygen Saturation 94 % (90-100) Arterial Blood pH 7.49 (7.380-7.420) Arterial Blood Partial Pressure CO2 37 mmHg (38-42) Arterial Blood Partial Pressure O2 87 mmHg (61-120) Arterial Blood Oxygen Content 14.4 Vol % (12.0-20.0) Arterial Blood Carboxyhemoglobin 1.6 % (0-4) Arterial Blood Methemoglobin 1.3 % (0-2) Blood Gas Hemoglobin 10.8 G/DL (12.0-16.0) Oxygen Delivery Device VENTILATOR Blood Gas Ventilator Setting SIMV12/450/PS10/PEEP Blood Gas Inspired Oxygen 40 % . Result Diagram: 08/18/17 1123 08/18/17 1123 Microbiology Laboratory Tests Test 08/18/17 08:17 08/18/17 11:23 08/18/17 11:28 Prothrombin Time 18.3 14.3 Prothromb Time International Ratio 1.6 1.3 White Blood Count 17.2 Red Blood Count 4.09 Hemoglobin 11.2 Hematocrit 34.0 Mean Corpuscular Volume 83.1 Mean Corpuscular Hemoglobin 27.4 Mean Corpuscular Hemoglobin Concent 32.9 Red Cell Distribution Width 16.8 Platelet Count 447 Mean Platelet Volume 7.4 Neutrophils (%) (Auto) 86.9 Lymphocytes (%) (Auto) 6.9 Monocytes (%) (Auto) 4.4 Eosinophils (%) (Auto) 1.2 Basophils (%) (Auto) 0.6 Neutrophils # (Auto) 15.0 Lymphocytes # (Auto) 1.2 Monocytes # (Auto) 0.8 Eosinophils # (Auto) 0.2 Basophils # (Auto) 0.1 CBC Comment DIFF FINAL Differential Comment Activated Partial Thromboplast Time 27.8 Blood Urea Nitrogen 8 Creatinine 0.34 Random Glucose 113 Calcium Level 7.9 Magnesium Level 1.6 Sodium Level 137 Potassium Level 2.7 Chloride Level 99 Carbon Dioxide Level 29.2 Anion Gap 9 Estimat Glomerular Filtration Rate 183 Total Creatine Kinase 61 Troponin I 0.32 25-Hydroxy Vitamin D Total 49.7 Blood Gas Puncture Site LINDA Blood Gas Patient Temperature 98.6 Blood Gas HCO3 28 Blood Gas Base Excess 4.4 Blood Gas Oxygen Saturation 94 Arterial Blood pH 7.49 Arterial Blood Partial Pressure CO2 37 Arterial Blood Partial Pressure O2 87 Arterial Blood Oxygen Content 14.4 Arterial Blood Carboxyhemoglobin 1.6 Arterial Blood Methemoglobin 1.3 Blood Gas Hemoglobin 10.8 Oxygen Delivery Device VENTILATOR Blood Gas Ventilator Setting SIMV12/450/PS10/PEEP Blood Gas Inspired Oxygen 40 . Imaging Last Impressions Chest X-Ray 08/18/17 0000 Signed Impressions: Service Date/Time: Friday, August 18, 2017 11:11 - CONCLUSION: 1. Consolidation of the right middle lobe with a small right basilar effusion. This is new compared to previous dated 06/12/17. 2. ET tube in good position. Calos Lal MD . Procedures Removal of left hip hardware, conversion to bipolar hemiarthroplasty Left heart catheterization with stent placement Intubation . Patient/Family Conference Present at Family Conference: Son Cory and his were at bedside. Cory son and nephew are in route to the hospital. His sister, Awilda is currently on a cruise in the [place]. Discussed with Cory the outcomes and potential complications. He is aware that the prognosis for recovery is very poor. He has agreed to a DO NOT RESUSCITATE status and is considering transition back to hospice, [facility] versus in-hospital withdrawal. . Family Conference Location: Bedside Issues Discussed: At the family conference, the following was discussed: * Palliative care role, purpose, approach * Additional medical, psychosocial, and spiritual history * Patients general health, functional status, and cognitive changes in the months leading up to the current hospitalization * Patient/family understanding of the current medical problems * Patient/family understanding of prognosis * Patients goals of care as best understood from advance directives and/or conversations and/or values * Current medical treatment options and benefits/burdens of those options * Likely scenarios comparing ongoing aggressive care with a transition to comfort measures only * Questions answered to the best of my ability * Palliative care contact information provided . Assessment and Plan Disease Oriented Problem List: (1) Acute [place] (2) Respiratory failure (3) Charcot-Sherly disease (4) Hip fracture (5) Afib (6) Hypertension Symptom Scale: (1) Anxiety 0-10 Scale: Unable to quantify (2) Dyspnea and respiratory abnormalities 0-10 Scale: Unable to quantify (3) Pain, generalized 0-10 Scale: Unable to quantify Pertinent Non-Medical Issues Psychosocial:She was born in [place] where she completed high school and her with whom she lived for 56 years prior to his about 9 years ago. They moved to [place] 20 years ago. They have 2 children a son, Cory and a daughter, Awilda. 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 Legal: She has 1 son and 1 daughter who are her healthcare proxy's. Ethical issues impacting care: No ethical issues noted. . Important Contacts Daughter - Josselyn Gonzalez - , Son - Cory Keyes - . Prognosis Her prognosis is very poor. 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 She suffered a large anterior myocardial infarction during surgery and underwent an immediate left heart catheterization with placement of 2 stents and perforation of the LAD. She is currently hypotensive, in ICU, intubated on antiarrhythmics, vasopressors and dopamine. She is not felt likely to survive this hospitalization. Code Status: No Code Plan PLAN: Legal decision maker: Both children, Cory and Awilda, are joint proxies. Goals: Comfort oriented. CODE STATUS: DO NOT RESUSCITATE SYMPTOMS: * Pain - Likely sources of pain include chest pain s/p [place], catheterization and dissection, intubation, immobility.Morphine and norco available. * Dyspnea - now intubated. At risk for dyspnea and respiratory discomfort with extubation or continued cardiac failure. * Anxiety - at risk for anxiety due to air hunger, dyspnea and discomfort. No sedative medications currently ordered due to hypotension. Patient currently calm and lethargic. Will require continual monitoring to prevent agitation which would significantly impair her cardiac function. Summary: In summary this is an 87-year-old female with multiple comorbidities who underwent an elective hip surgery due to avascular necrosis. During the surgery she suffered a large anterior myocardial infarction and was emergently sent to the Overlock Operator with placement of 2 stents and subsequent perforation of the LAD. She required intubation and is now critically ill. She was previously a DO NOT RESUSCITATE status and the family has reinitiated that. They do not wish any aggressive measures. She was previously a patient of [facility] hospice and per the family discussion will likely resume their services if she does survive this admission. She is not likely to survive this hospitalization. Palliative care will continue to follow the patient during hospital course as condition evolves, to assist patient/decision-maker with understanding of their medical conditions, weighing benefits/burdens of treatment options, for clarification of goals of treatment. Additionally will assist with any symptoms of palliative concern. . Thank you for the opportunity to participate in the care of Ms. Keyes. Attestation To help prompt me to consider important information that might be impacting today's encounter and assessment, information from prior notes written by myself or my colleagues may have been "brought forward" into today's note. My signature on this note, however, is an attestation that I personally performed the exam, history, and/or decision-making noted today, and, unless otherwise indicated, the interactions with patient, family, and staff as well as the review of records all occurred today. I also attest that the listed assessment and stated plan reflect my best clinical judgment today based on the combination of historical information, prior notes, and today's exam/ interactions. When time spent is documented, it refers only to time spent today by the signer, or if indicated, combined time spent today by collaborating physician/nurse practitioner. Lavern Lopes Aug 18, 2017 16:38
--- NOTE | 2017-08-18 17:11 | RADRPT ---
EXAM DATE/TIME: 08/18/2017 16:42 [facility] COMPARISON: HIP LEFT (AP&LAT 2/3VWS) WO AP PELVIS, June 13, 2017, 11:40. INDICATIONS : Post op left hip prosthesis. MEDICAL HISTORY : Hypercholesterolemia. Hypertension. Gastroesophageal reflux disease SURGICAL HISTORY : total left knee prosthesis ENCOUNTER: Initial ACUITY: 1 day PAIN SCORE: 6/10 LOCATION: Left hip FINDINGS: The patient has undergone interval left hip arthroplasty with a surgical drain, skin cecilio and subc utaneous emphysema noted. A Fuentes catheter in urinary bladder with contrast media present filling the urinary bladder. A stimulator device overlies the sacrum on the right. CONCLUSION: Satisfactory appearance of left hip bipolar hemiarthroplasty. Nav Miller MD on August 18, 2017 at 17:09 Board Certified Radiologist. This report was verified electronically.
[2017-08-18] MEDS ORDERED: CHLORHEXIDINE GLUCONATE 2 % 1 PACK (2 CLOTHS)(extra cloths) TOPICAL PRN (18:00)
--- NOTE | 2017-08-18 18:43 | DEATH SUM ---
Summary Demographics Date Pronounced : Aug 18, 2017 Time Of : 18:16 Pronounced By: Chey Jean-Baptiste Preliminary Cause of : Cardiac arrest Chey Jean-Baptiste MD Aug 18, 2017 18:43
[2017-08-18] MEDS ORDERED: DOCUSATE SODIUM 50 MG/SENNA 8.6 MG TAB PO SCH (21:00)
[2017-08-18] MEDS ORDERED: SODIUM CHLORIDE 0.9% FLUSH 5 ML FLUSH IVF SCH (21:00)
[2017-08-18] MEDS ORDERED: MIRTAZAPINE ODT 30 MG TAB PO SCH (21:00)
--- NOTE | 2017-08-18 23:05 | HHI.DS ---
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 Diagnosis at Time of : (1) Cardiogenic shock ICD Code: R57.0 - Cardiogenic shock Diagnosis: Principal (2) Acute SC ICD Code: I21.3 - ST elevation (STEMI) myocardial infarction of unspecified site Diagnosis: Principal (3) Respiratory failure ICD Code: J96.90 - Respiratory failure, unspecified, unspecified whether with hypoxia or hypercapnia Diagnosis: Principal (4) Avascular bone necrosis ICD Code: M87.00 - Idiopathic aseptic necrosis of unspecified bone Diagnosis: Secondary (5) 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 Hall) Retrograde left heart catheterization with left ventriculography and selective coronary angiography. Angioplasty and stenting of the mid and distal left anterior descending artery. 08/18 (Dr. Ryan) CBC/BMP: 08/18/17 1123 08/18/17 1123 Significant Findings Laboratory Tests Test 08/18/17 08:17 08/18/17 11:23 08/18/17 11:28 08/18/17 16:00 Prothrombin Time 18.3 SEC (9.8-11.6) 14.3 SEC (9.8-11.6) White Blood Count 17.2 TH/MM3 (4.0-11.0) Hemoglobin 11.2 GM/DL (11.6-15.3) Hematocrit 34.0 % (35.0-46.0) Neutrophils (%) (Auto) 86.9 % (16.0-70.0) Lymphocytes (%) (Auto) 6.9 % (9.0-44.0) Neutrophils # (Auto) 15.0 TH/MM3 (1.8-7.7) Creatinine 0.34 MG/DL (0.50-1.00) Random Glucose 113 MG/DL (74-106) Calcium Level 7.9 MG/DL (8.5-10.1) Potassium Level 2.7 MEQ/L (3.5-5.1) Troponin I 0.32 NG/ML (0.02-0.05) Blood Gas HCO3 28 mmol/L (22-26) Blood Gas Base Excess 4.4 mmol/L (-2-2) Arterial Blood pH 7.49 (7.380-7.420) Arterial Blood Partial Pressure CO2 37 mmHg (38-42) Blood Gas Hemoglobin 10.8 G/DL (12.0-16.0) Imaging Last Impressions Chest X-Ray 08/18/17 0000 Signed Impressions: Service Date/Time: Friday, August 18, 2017 11:11 - CONCLUSION: 1. Consolidation of the right middle lobe with a small right basilar effusion. This is new compared to previous dated 06/12/17. 2. ET tube in good position. Calos Lal MD Hospital Course 87-year-old female with left hip avascular necrosis following ORIF for left hip fracture who was brought in for and underwent left hip hemiarthroplasty with hardware removal under general anesthesia, intraoperatively she was noted to have ST elevations on monitor and subsequent EKG. After completion of surgery patient was taken to PACU and extubated. In view of ST elevation SC diagnosed on EKG she was evaluated by cardiology Dr. ryan who had been consulted intraoperatively. Patient underwent a 2-D echo which revealed anteroseptal hypokinesis. Patient was taken for emergent cardiac catheterization and was found to have diffuse disease involving LAD with LVEF 10-15%. She underwent 2 bare-metal stents to LAD and this was complicated by LAD perf which was managed by stenting across with subsequent good flow per discussion with Dr. Ryan. Patient did have V. tach/V. fib during cardiac catheterization and was defibrillated and converted back to sinus rhythm was started on dopamine for hypotension and was also administered amiodarone. Patient was intubated during cardiac catheterization and placed on mechanical ventilation. She [place] [facility] [place] was hypotensive with systolic blood pressure in the 50s on arrival. Dr. Cabrera evaluated the patient immediately on being notified and discussed the case with Dr. Ryan including hypotension. History was obtained by reviewing records and discussion with nursing staff as well as Dr. Ryan. Code status was DNR after discussion with family. Patient had profound cardiogenic shock and ultimately went into asystole. ACLS was withheld per family wishes. Patient at 18:16 at 08/18. Family at bedside was updated. Chey Jean-Baptiste MD Aug 18, 2017 23:04
[2017-08-19] MEDS ORDERED: CHLORHEXIDINE GLUCONATE 2 % 1 PACK (2 CLOTHS)(taper/protocol) TOPICAL SCH (04:00)
[2017-08-19] MEDS ORDERED: PANTOPRAZOLE SOD 20 MG DELAYED RELEASE TAB PO SCH (09:00)
[2017-08-19] MEDS ORDERED: DILTIAZEM-CD 300 MG CAP ER PO SCH (09:00)
[2017-08-19] MEDS ORDERED: CHOLECALCIFEROL (VIT D3) 5000 UNIT CAP PO SCH (09:00)
[2017-08-19] MEDS ORDERED: WARFARIN SOD 1 MG TAB PO SCH (16:00)
== END 2017-08-18 18:16 | disposition expired | DRG 469 ==
LOC: HSDI 07:19 → HIMN 14:10
PROVIDERS: ADMIT Orthopaedic Surgery Orthopaedic Trauma; ATTEND Orthopaedic Surgery Orthopaedic Trauma
PROC: 0SRS0JA Replacement of Left Hip Joint, Femoral Surface with Synthetic Substitute, Uncemented, Open Approach (ICD-10-PCS; 2017-08-18)
PROC: 027034Z Dilation of Coronary Artery, One Artery with Drug-eluting Intraluminal Device, Percutaneous Approach (ICD-10-PCS; 2017-08-18)
PROC: 4A023N7 Measurement of Cardiac Sampling and Pressure, Left Heart, Percutaneous Approach (ICD-10-PCS; 2017-08-18)
PROC: B2111ZZ Fluoroscopy of Multiple Coronary Arteries using Low Osmolar Contrast (ICD-10-PCS; 2017-08-18)
PROC: B2151ZZ Fluoroscopy of Left Heart using Low Osmolar Contrast (ICD-10-PCS; 2017-08-18)
PROC: 30253K1 (ICD-10-PCS; 2017-08-18)
PROC: 0BH17EZ Insertion of Endotracheal Airway into Trachea, Via Natural or Artificial Opening (ICD-10-PCS; 2017-08-18)
PROC: 5A1935Z Respiratory Ventilation, Less than 24 Consecutive Hours (ICD-10-PCS; 2017-08-18)
PROC: 0SP Lower Joints, Removal (ICD-10-PCS; principal; 2017-08-18 09:24)
DX: M87.852 Other osteonecrosis, left femur (principal); I21.09 ST elevation (STEMI) myocardial infarction involving other coronary artery of anterior wall; J96.00 Acute respiratory failure, unspecified whether with hypoxia or hypercapnia; I47.2 Ventricular tachycardia; I48.2 Chronic atrial fibrillation; S72.009A Fracture of unspecified part of neck of unspecified femur, initial encounter for closed fracture; G60.0 Hereditary motor and sensory neuropathy; I10 Essential (primary) hypertension; T81.11XA Postprocedural cardiogenic shock, initial encounter; I97.791 Other intraoperative cardiac functional disturbances during other surgery; E78.5 Hyperlipidemia, unspecified; Y83.8 Other surgical procedures as the cause of abnormal reaction of the patient, or of later complication, without mention of misadventure at the time of the procedure; Y92.234 Operating room of hospital as the place of occurrence of the external cause; I25.10 Atherosclerotic heart disease of native coronary artery without angina pectoris; I25.5 Ischemic cardiomyopathy; I46.9 Cardiac arrest, cause unspecified; K21.9 Gastro-esophageal reflux disease without esophagitis; Z51.5 Encounter for palliative care; Z66 Do not resuscitate; Z87.891 Personal history of nicotine dependence
CPT/HCPCS: 36430; 71010; 73501; 76000; 80048; 82306; 82550; 82805; 83735; 84484; 85002; 85025; 85610; 85730; 86850; 86900; 86901; 86927; 87641; 92941; 93005; 93306; 93308; 93458; 94002; C1725; C1760; C1769; C1776; C1876; C1887; C1893; G0269; J0282; J0690; J1100; J1265; J1580; J1644; J2250; J2270; J2405; J2720; J3010; J3246; J3370; J3480; J7050; J7060; J7120; L1830; P9017; Q9967